=== PATIENT | male | born 1985 | race African-American/Black ===

== ENCOUNTER → 2016-11-18 | Emergency (ER) | payer MEDICAID, OTHER ==
[~2016-11-18] VITALS: Ht 190.5 cm; Wt 101.6 kg
[~2016-11-18] MED LIST: AMOX1TAB12; BUTA1CAP39 PO; BUTA1TAB9; FLUT16SP22; NAPR500T3 PO; SULF1TAB35 PO; TETANUS,DIPTH,PERTUSS P/F (BOOSTRIX) 0.5 ML VIAL IM ONE; TOPI50TA13
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
[2016-11-18 18:55] VITALS: BP 134/86
== END | disposition home or self-care (01) ==
LOC: EDUNIT# 17:58 → ER 18:01
DX: S61.431A Puncture wound without foreign body of right hand, initial encounter (principal); Z23 Encounter for immunization; F17.210 Nicotine dependence, cigarettes, uncomplicated; W45.8XXA Other foreign body or object entering through skin, initial encounter; Y92.59 Other trade areas as the place of occurrence of the external cause; Y99.0 Civilian activity done for income or pay
CPT/HCPCS: 90471; 90715; 99282

== ENCOUNTER 2017-08-13 18:48 | Emergency (ER) | payer SELFPAY ==
[~2017-08-13] VITALS: Ht 190.5 cm; Wt 102.1 kg
[~2017-08-13 18:48] MED LIST changes: -NAPR500T3 PO; +NAPR500T4 PO; -TETANUS,DIPTH,PERTUSS P/F (BOOSTRIX) 0.5 ML VIAL IM ONE
--- OUTSIDE RECORDS SUMMARY | 2017-08-13 18:55 | XMS REPORT | Clinical Summary ---
Author Author [facility] Organization [facility] Address Unknown Phone Unavailable Care Team Providers Care Sccm Administrator Name Role Phone Dominguez Castro MD Unavailable Zunilda Jackson RN Unavailable Unavailable Stacia Grey MD PCP Mary Calixto RN Unavailable Unavailable Azucena Pantoja RN Unavailable Unavailable Emani Cheema RN Unavailable Unavailable Source Comments Some departments are not documenting in the electronic medical record. If you do not see the information that you expected, contact Release of Information in the Health Information Management department at [phone] for further assistance in locating additional records.[facility] Allergies No Known Allergies Current Medications No known medications Active Problems Problem Noted Date Flexion contracture of joint of hand 08/29/2014 Social History Tobacco Use Types Packs/Day Years Used Date Current Every Day Smoker Cigarettes 0.5 Smokeless Tobacco: Never Used Tobacco Cessation: Counseling Given: Yes Alcohol Use Drinks/Week oz/Week Comments Yes 5 Cans of 3.0 beer Sex Assigned at Date Recorded Not on file Last Filed Vital Signs Vital Sign Reading Time Taken Blood Pressure 137/78 04/19/2015 11:22 AM CDT Pulse 85 04/19/2015 11:22 AM CDT Temperature 36.9 C (98.4 F) 04/19/2015 11:22 AM CDT Respiratory Rate 18 03/22/2015 11:05 AM CDT Oxygen Saturation 97% 02/02/2015 1:30 PM CDT Inhaled Oxygen - - Concentration Weight 108.9 kg (240 lb) 04/19/2015 11:22 AM CDT Height 190.5 cm (6' 3") 04/19/2015 11:22 AM CDT Body Mass Index 30 04/19/2015 11:22 AM CDT Plan of Treatment Health Maintenance Due Date Last Done Comments PHYSICAL (COMPREHENSIVE) 1992 EXAM PERTUSSIS VACCINE 1996 TETANUS VACCINE 2002 INFLUENZA VACCINE 02/11/2017 Results Not on filefrom Last 3 Months
--- OUTSIDE RECORDS SUMMARY | 2017-08-13 18:55 | XMS REPORT ---
Author Author RAMSEY VALVERDE Organization [facility] Address [address] [place] [address] Care Team Providers Care Flow Specialist Name Role Phone RAMSEY VALVERDE Unavailable PROBLEMS Type Condition ICD9-CM Code LAT32-NV Code Onset Dates Condition Status SNOMED Code Problem Unspecified conjunctivitis 372.30 Active 6889089 Problem Crushing injury of hand(s) 927.20 Active 02267115 Problem Screening examination for venereal disease V74.5 Active [id number] ALLERGIES No Known Allergies SOCIAL HISTORY Never Assessed PLAN OF CARE Activity Details Follow Up prn Reason: VITAL SIGNS Height 75 in 2016-12-10 Weight 228.4 lbs 2016-12-10 Temperature 97.6 degrees Fahrenheit 2016-12-10 Heart Rate 84 bpm 2016-12-10 Respiratory Rate 20 2016-12-10 BMI 28.54 kg/m2 2016-12-10 Blood pressure systolic 146 mmHg 2016-12-10 Blood pressure diastolic 88 mmHg 2016-12-10 MEDICATIONS No Known Medications RESULTS No Results PROCEDURES No Known procedures IMMUNIZATIONS No Known Immunizations
--- OUTSIDE RECORDS SUMMARY | 2017-08-13 18:56 | XMS REPORT | Continuity of Care Document ---
Author Author [facility] Organization [facility] Address Unknown Phone Unavailable Allergies Active Description Code Type Severity Reaction Onset Reported/Identified Relationship to Patient Clinical Status Yes No Known Drug Allergies [id number] Drug Allergy Unknown N/A 05/31/2015 Medications There is no data. Problems Date Dx Coded Attending Type Code Diagnosis Diagnosed By 02/13/2015 SONJA WISLON, ALEXANDER Ramirez Ot 729.81 02/13/2015 SONJA WILSON, ALEXANDER Ramirez Ot 927.20 02/13/2015 ALEXANDER CASILLAS MD Ot E000.8 02/13/2015 SONJA WILSON, ALEXANDER Ramirez Ot E928.9 02/16/2015 EMERSON WILSON, CHETAN Gentile Ot V57.21 02/16/2015 EMERSON WILSON, CHETAN Gentile Ot V57.21 02/17/2015 EMERSON WILSON, CHETAN H Ot V57.21 03/16/2015 EMERSON WILSON, CHETAN Gentile Ot V57.21 03/16/2015 EMERSON WILSON, CHETAN H Ot V57.21 03/16/2015 EMERSON WILSON, CHETAN H Ot V57.21 04/06/2015 EMERSON WILSON, CHETAN H Ot V57.21 04/12/2015 EMERSON WILSON, CHETAN H Ot V57.21 ENCOUNTER FOR OCCUPATIONAL THERAPY 04/24/2015 EMERSON WILSON, CHETAN Gentile Ot V57.21 05/11/2015 EMERSON WILSON, CHETAN Gentile Ot L90.5 06/06/2015 EMERSON WILSON, CHETAN Gentile Ot L90.5 06/09/2015 EMERSON WILSON, CHETAN Gentile Ot L90.5 06/30/2015 EMERSON WILSON, CHETAN Gentile Ot L90.5 06/30/2015 MITRA MACHADO APRN Ot F17.210 NICOTINE DEPENDENCE, CIGARETTES, UNCOMPL 06/30/2015 MITRA MACHADO APRN Ot G43.909 MIGRAINE, UNSP, NOT INTRACTABLE, WITHOUT 06/30/2015 MITRA MACHADO APRN Ot J01.90 ACUTE SINUSITIS, UNSPECIFIED 07/12/2015 EMERSON WILSON, CHETAN Gentile Ot L90.5 SCAR CONDITIONS AND FIBROSIS OF SKIN 11/18/2016 EMERSON WILSON, CHETAN Gentile Ot L90.5 SCAR CONDITIONS AND FIBROSIS OF SKIN 11/18/2016 EMERSON WILSON, CHETAN Gentile Ot L90.5 SCAR CONDITIONS AND FIBROSIS OF SKIN 11/24/2016 JOHNSON DOABDULLAHI Ot F17.210 NICOTINE DEPENDENCE, CIGARETTES, UNCOMPL 11/24/2016 [facility], ABDULLAHI K Ot S61.431A PUNCTURE WOUND W/O FOREIGN BODY OF RIGHT 11/24/2016 [facility] ABDULLAHI K Ot W45.8XXA OTH FOREIGN BODY OR OBJECT ENTERING THRO 11/24/2016 [facility] DO ABDULLAHI K Ot Y92.[address] 11/24/2016 [facility], ABDULLAHI K Ot Y99.0 CIVILIAN ACTIVITY DONE FOR INCOME OR PAY 11/24/2016 [facility] ABDULLAHI K Ot Z23 ENCOUNTER FOR IMMUNIZATION 12/19/2016 [facility] DO ABDULLAHI K Ot F17.210 NICOTINE DEPENDENCE, CIGARETTES, UNCOMPL 12/19/2016 [facility] ABDULLAHI K Ot S61.431A PUNCTURE WOUND W/O FOREIGN BODY OF RIGHT 12/19/2016 J[facility]NSON DO ABDULLAHI K Ot W45.8XXA OTH FOREIGN BODY OR OBJECT ENTERING THRO 12/19/2016 [facility] DO ABDULLAHI K Ot Y92.[address] 12/19/2016 [facility] ABDULLAHI Mobilio Ot Y99.0 CIVILIAN ACTIVITY DONE FOR INCOME OR PAY 12/19/2016 JOHNSON iikoABDULLAHI K Ot Z23 ENCOUNTER FOR IMMUNIZATION Procedures There is no data. Results There is no data. Encounters ACCT No. Visit Date/Time Discharge Status Pt. Type Provider Facility Loc./Unit Complaint [id number] 11/18/2016 18:01:00 11/18/2016 18:55:00 DIS Emergency ABDULLAHI ORNELAS DO [facility] ER R HAND SWELLING [id number] 07/13/2015 00:19:00 07/13/2015 23:59:59 CLS Preadmit CHETAN NORMAN MD [facility] REHAB LEFT RING FINGER [id number] 06/27/2015 13:49:00 07/12/2015 00:01:00 DIS Outpatient CHETAN NORMAN MD [facility] REHAB LEFT RING FINGER [id number] 06/30/2015 17:19:00 06/30/2015 20:03:00 DIS Emergency MITRA MACHADO APRN [facility] ER SINUS INFECTION/HEADACHE [id number] 04/11/2015 14:01:00 04/12/2015 00:01:00 DIS Outpatient CHETAN NORMAN MD [facility] REHAB LEFT RING FINGER [id number] 04/28/2013 16:50:00 04/28/2013 23:59:59 CLS Outpatient SONJA WILSON, ALEXANDER Ramirez [facility] RAD
[2017-08-13] MEDS ORDERED: IBUP-2055 PO (21:23)
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
[2017-08-13] MEDS ORDERED: RX-OSELTAMIVIR 75 MG (TAMIFLU) BOX OF 10 PO STA (22:24)
[2017-08-13] MEDS ORDERED: METH4TAB PO (22:30)
[2017-08-13] MEDS ORDERED: LORA1TAB59 PO (22:30)
[2017-08-13] MEDS ORDERED: BENZ-13 PO (22:30)
[2017-08-13] MEDS ORDERED: GUAI1TBM19 PO (22:30)
[2017-08-13] MEDS ORDERED: FLUT9.9S NS (22:30)
[2017-08-13] MEDS ORDERED: RX-ONDANSETRON 4 MG ODT (ZOFRAN) PPK #4 ONE (22:52)
[2017-08-13] MEDS ORDERED: predniSONE 20 MG TAB ONE (23:12)
[2017-08-13] MEDS ORDERED: BENZONATATE 100 MG (TESSALON) CAPSULE PO ONE (23:12)
[2017-08-13 23:14] VITALS: BP 124/74
[2017-08-14] MEDS ORDERED: RX-ONDANSETRON 4 MG ODT (ZOFRAN) PPK #4 PO STA (05:56)
[2017-08-14] MEDS ORDERED: BENZONATATE 100 MG (TESSALON) CAPSULE PO SCH (09:00)
== END 2017-08-13 23:14 | disposition home or self-care (01) ==
LOC: EDUNIT# 18:48 → ER 18:50
DX: J11.1 Influenza due to unidentified influenza virus with other respiratory manifestations (principal); G43.909 Migraine, unspecified, not intractable, without status migrainosus; F17.210 Nicotine dependence, cigarettes, uncomplicated
CPT/HCPCS: 87804; 99283

== ENCOUNTER 2017-08-19 20:12 | Emergency (ER) | payer SELFPAY ==
[~2017-08-19] VITALS: Ht 190.5 cm; Wt 102.1 kg
[~2017-08-19 20:12] MED LIST changes: +BENZ-13 PO; +FLUT9.9S NS; +GUAI1TBM19 PO; +IBUP-2055 PO; +LORA1TAB59 PO; +METH4TAB PO
[2017-08-19] MEDS ORDERED: NAPR220C11 PO (21:03)
[2017-08-19] MEDS ORDERED: NS IV 1000 ML 1,000 ML IV ONE (22:28)
--- NOTE | 2017-08-19 22:42 | ED Cough/URI ---
General Chief Complaint: Cough/Cold/Flu Symptoms Stated Complaint: FLU SYMPTOMS Nursing Triage Note: PT REPORTS BEING SEEN IN OUR ER LAST FRIDAY OR FRIDAY AND STARTED ON TAMIFLU; PT REPORTS NO IMPROVEMENT, UNABLE TO KEEP ANYTHING DOWN, N/V, COUGHING UP GREEN SPUTUM, CHILLS, BODY ACHES, URINARY URGENCY STARTING YESTERDAY. PT REPORT INTERMITTENT NUMBNESS TO HANDS Source: patient Exam Limitations: no limitations History of Present Illness Date Seen by Provider: Aug 19, 2017 Time Seen by Provider: 22:27 Initial Comments Here with report of persistent upper respiratory symptoms with cough and chills and body aches. Also noted urinary frequency starting yesterday. Does report nausea and vomiting. States he is able to eat and drink a little bit but just his overall not feeling well. Did take the medicines prescribed last week including Tamiflu that he got after visiting here on 13 August. Mild sore throat reported and persistent runny nose reported. Timing/Duration: week, getting worse Severity/Quality: mild, dry cough Associated Symptoms: cough, fever/chills, muscle aches, nasal congestion, nasal drainage, shortness of breath, sore throat Allergies and Home Medications Allergies Coded Allergies: No Known Drug Allergies (Unverified , 05/31/15) Home Medications Benzonatate 100 Mg Capsule, 1-2 TAB PO TID, #30 Prescribed by: ABDULLAHI ORNELAS on 08/13/17 2230 Naproxen Sodium 220 Mg Capsule, 220 MG PO Q6H PRN for PAIN-MILD, (Reported) Constitutional: see HPI, chills, fever, malaise EENTM: see HPI Respiratory: No short of breath, No wheezing Cardiovascular: no symptoms reported Gastrointestinal: No abdominal pain, nausea, vomiting Genitourinary: see HPI, other (emergency) Musculoskeletal: No back pain, No muscle pain Skin: no symptoms reported Psychiatric/Neurological: No Symptoms Reported All Other Systems Reviewed Negative Unless Noted: Yes Past Tqxapnm-Tzsmgl-Vmolkp Hx Patient Social History Alcohol Use: Occasionally Uses Alcohol Beverage of Choice: Beer Recreational Drug Use: Yes (MARIJUANA) Smoking Status: Current Everyday Smoker Type Used: Cigarettes Recent Foreign Travel: No Contact w/Someone Who Travel: No Recent Infectious Disease Expo: No Recent Hopitalizations: No Immunizations Up To Date Tetanus Booster (TDap): Unknown Seasonal Allergies Seasonal Allergies: No Surgeries History of Surgeries: Yes (LEFT HAND/FINGER SURGERY) Surgeries: Orthopedic Respiratory History of Respiratory Disorde: No Cardiovascular History of Cardiac Disorders: No Neurological History of Neurological Disord: Yes Neurological Disorders: Headaches /Migraines Genitourinary History of Genitourinary Disor: No Gastrointestinal History of Gastrointestinal Di: No Musculoskeletal History of Musculoskeletal Dis: No Endocrine History of Endocrine Disorders: No HEENT History of HEENT Disorders: No Cancer History of Cancer: No Psychosocial History of Psychiatric Problem: No Integumentary History of Skin or Integumenta: Yes (STAPH INFECTION) Blood Transfusions History of Blood Disorders: No Reviewed Nursing Assessment Reviewed/Agree w Nursing PMH: Yes Family Medical History Significant Family History: No Pertinent Family Hx Physical Exam Vital Signs Vital Signs - First Documented 08/19/17 20:53 Temp 99.4 Pulse 85 Resp 18 B/P (MAP) 146/78 (100) Pulse Ox 98 O2 Delivery Room Air Capillary Refill : Less Than 3 Seconds General Appearance: WD/WN, no apparent distress HEENT: PERRL/EOMI, pharyngeal erythema, other (moderate bilateral nasal congestion with erythema and clear rhinorrhea. Moderate sinus tenderness frontal.) Neck: full range of motion, supple Respiratory: lungs clear, normal breath sounds Cardiovascular: regular rate, rhythm, no murmur Gastrointestinal: non tender, soft Extremities: non-tender, normal inspection Neurologic/Psychiatric: alert, oriented x 3 Skin: normal color, warm/dry Progress/Results/Core Measures Suspected Sepsis Recent Fever Within 48 Hours: Yes Infection Criteria Present: Suspected New Infection New/Unexplained Altered Menta: No Sepsis Screen: No Definite Risk Sepsis Diagnosis: SIRS Temperature:99.4 Pulse: 85 Respiratory Rate: 18 Laboratory Tests 08/19/17 22:48: White Blood Count 7.4 Blood Pressure 146 /78 Mean: 100 Laboratory Tests 08/19/17 22:48: Creatinine 0.94, Platelet Count 279, Total Bilirubin 0.7 Results/Orders Lab Results Laboratory Tests Test 08/19/17 22:40 08/19/17 22:48 Range/Units Urine Color YELLOW Urine Clarity CLEAR Urine pH 7 5-9 Urine Specific [place] 1.005 L 1.016-1.022 Urine Protein NEGATIVE NEGATIVE Urine Glucose (UA) NEGATIVE NEGATIVE Urine Ketones NEGATIVE NEGATIVE Urine Nitrite NEGATIVE NEGATIVE Urine Bilirubin NEGATIVE NEGATIVE Urine Urobilinogen NORMAL NORMAL MG/DL Urine Leukocyte Esterase NEGATIVE NEGATIVE Urine RBC (Auto) NEGATIVE NEGATIVE Urine RBC RARE /HPF Urine WBC NONE /HPF Urine Squamous Epithelial Cells 0-2 /HPF Urine Crystals NONE /LPF Urine Bacteria NONE /HPF Urine Casts NONE /LPF Urine Mucus NEGATIVE /LPF Urine Culture Indicated NO White Blood Count 7.4 4.3-11.0 10^3/uL Red Blood Count 5.47 4.35-5.85 10^6/uL Hemoglobin 15.7 13.3-17.7 G/DL Hematocrit 46 40-54 % Mean Corpuscular Volume 84 80-99 FL Mean Corpuscular Hemoglobin 29 25-34 PG Mean Corpuscular Hemoglobin Concent 34 32-36 G/DL Red Cell Distribution Width 15.8 H 10.0-14.5 % Platelet Count 279 130-400 10^3/uL Mean Platelet Volume 9.6 7.4-10.4 FL Neutrophils (%) (Auto) 43 42-75 % Lymphocytes (%) (Auto) 40 12-44 % Monocytes (%) (Auto) 12 0-12 % Eosinophils (%) (Auto) 4 0-10 % Basophils (%) (Auto) 1 0-10 % Neutrophils # (Auto) 3.2 1.8-7.8 X 10^3 Lymphocytes # (Auto) 3.0 1.0-4.0 X 10^3 Monocytes # (Auto) 0.9 0.0-1.0 X 10^3 Eosinophils # (Auto) 0.3 0.0-0.3 10^3/uL Basophils # (Auto) 0.0 0.0-0.1 10^3/uL Sodium Level 139 135-145 MMOL/L Potassium Level 4.0 3.6-5.0 MMOL/L Chloride Level 105 98-107 MMOL/L Carbon Dioxide Level 22 21-32 MMOL/L Anion Gap 12 5-14 MMOL/L Blood Urea Nitrogen 7 7-18 MG/DL Creatinine 0.94 0.60-1.30 MG/DL Estimat Glomerular Filtration Rate > 60 BUN/Creatinine Ratio 7 Glucose Level 92 70-105 MG/DL Calcium Level 9.4 8.5-10.1 MG/DL Total Bilirubin 0.7 0.1-1.0 MG/DL Aspartate Amino Transf (AST/SGOT) 32 5-34 U/L Alanine Aminotransferase (ALT/SGPT) 35 0-55 U/L Alkaline Phosphatase 73 40-136 U/L C-Reactive Protein High Sensitivity 0.37 0.00-0.50 MG/DL Total Protein 7.5 6.4-8.2 GM/DL Albumin 4.2 3.2-4.5 GM/DL My Orders Orders - REGINA SABILLON MD Cbc With Automated Diff (08/19/17 22:28) Comprehensive Metabolic Panel (08/19/17 22:28) Hs C Reactive Protein (08/19/17 22:28) Ua Culture If Indicated (08/19/17 22:28) Chest Pa/Lat (2 View) (08/19/17 22:28) Saline Lock/Iv-Start (08/19/17 22:28) Ns Iv 1000 Ml (Sodium Chloride 0.9%) (08/19/17 22:28) Amoxicillin 1000mg Po (08/20/17 00:10) Medications Given in ED Current Medications Medications Dose Ordered Sig/Abner Route Start Time Stop Time Status Last Admin Dose Admin Sodium Chloride 1,000 ml @ 0 mls/hr Q0M ONCE IV 08/19/17 22:28 08/19/17 22:30 DC 08/19/17 22:51 0 MLS/HR Vital Signs/I&O Vital Sign - Last 12Hours 08/19/17 20:53 Temp 99.4 Pulse 85 Resp 18 B/P (MAP) 146/78 (100) Pulse Ox 98 O2 Delivery Room Air Capillary Refill : Less Than 3 Seconds Blood Pressure Mean: 100 Progress Note : Progress Note Seen and evaluated. IV, labs and UA ordered. Normal saline 1 L bolus. Monitor patient. 0010: Somewhat improved. No acute findings on labs or chest x -ray. We will initiate high-dose amoxicillin for probable sinusitis. Discharged home with return precautions. Patient verbalize understanding instructions and agreement with plan. Diagnostic Imaging Diagonstic Imaging: Xray Plain Films/CT/US/NM/MRI: chest Comments No acute findings Reviewed: Reviewed by Me Departure Impression Impression: Primary Impression: Sinusitis Qualified Codes: J01.10 - Acute frontal sinusitis, unspecified Disposition: HOME, SELF-CARE Condition: Improved Departure-Patient Inst. Decision time for Depature: 00:17 Referrals: NO,LOCAL PHYSICIAN (PCP/Family) Primary Care Physician Patient Instructions: Sinusitis, Adult (DC) Add. Discharge Instructions: All discharge instructions reviewed with patient and/or family. Voiced understanding. Drink plenty of fluids. You may use Afrin nasal spray or the generic, 12 hour relief, 2 sprays to each nostril twice daily for 3 days only and then stop. Do not use more than 3 days. You may take ibuprofen 800 mg every 8 hours as needed for fever or pain. You may take Tylenol 1000 mg every 8 hours as needed for fever or pain. Return for worse pain, fever, vomiting, weakness, breathing problems or other concerns as needed. Scripts Amoxicillin (Amoxicillin) 500 Mg Capsule 1000 MG PO TID, #60 CAP 0 Refills Prov: REGINA SABILLON MD 08/20/17 Work/School Note: Work Release Form Date Seen in the Emergency Department: Aug 20, 2017 Return to Work: Aug 21, 2017 Restrictions: No Restrictions REIGNA SABILLON MD Aug 19, 2017 22:42
[2017-08-19 22:56] LABS: BILIRUBIN,URINE NEGATIVE (NEGATIVE); CLARITY,URINE CLEAR; COLOR,URINE YELLOW; GLUCOSE, URINE (UA) NEGATIVE (NEGATIVE); KETONES,URINE NEGATIVE (NEGATIVE); LEUKOCYTE ESTERASE ,URINE NEGATIVE (NEGATIVE); NITRITE,URINE NEGATIVE (NEGATIVE); PH,URINE 7 (5-9); PROTEIN,URINE NEGATIVE (NEGATIVE); UROBILINOGEN,URINE NORMAL (NORMAL)
[2017-08-19 22:57] LABS: BASOPHILS % (AUTO) 1 % (0-10); EOSINOPHILS # (AUTO) 0.3 10^3/uL (0.0-0.3); EOSINOPHILS % (AUTO) 4 % (0-10); HEMATOCRIT 46 % (40-54); HEMOGLOBIN 15.7 G/DL (13.3-17.7); LYMPHOCYTES % (AUTO) 40 % (12-44); MEAN CORPUSCULAR HEMOGLOBIN 29 PG (25-34); MEAN CORPUSCULAR HGB CONC 34 G/DL (32-36); MEAN CORPUSCULAR VOLUME 84 FL (80-99); MEAN PLATELET VOLUME 9.6 FL (7.4-10.4); MONOCYTES # (AUTO) 0.9 X 10^3 (0.0-1.0); MONOCYTES % (AUTO) 12 % (0-12); NEUTROPHILS # (AUTO) 3.2 X 10^3 (1.8-7.8); NEUTROPHILS % (AUTO) 43 % (42-75); PLATELET COUNT 279 10^3/uL (130-400); RED BLOOD COUNT 5.47 10^6/uL (4.35-5.85); RED CELL DISTRIBUTION WIDTH 15.8 % (10.0-14.5); WHITE BLOOD COUNT 7.4 10^3/uL (4.3-11.0)
[2017-08-19 23:03] LABS: RBC,URINE RARE /HPF; SQUAMOUS EPITHELIAL CELL,UR 0-2 /HPF
[2017-08-19 23:19] LABS: ALANINE AMINOTRANSFERASE 35 U/L (0-55); ALBUMIN 4.2 GM/DL (3.2-4.5); ALKALINE PHOSPHATASE 73 U/L (40-136); BILIRUBIN,TOTAL 0.7 MG/DL (0.1-1.0); BUN/CREATININE RATIO 7; CALCIUM 9.4 MG/DL (8.5-10.1); CARBON DIOXIDE 22 MMOL/L (21-32); CHLORIDE 105 MMOL/L (98-107); CREATININE SERUM 0.94 MG/DL (0.60-1.30); GFR ESTIMATED > 60; GLUCOSE 92 MG/DL (70-105); SODIUM 139 MMOL/L (135-145); TOTAL PROTEIN 7.5 GM/DL (6.4-8.2)
[2017-08-20] MEDS ORDERED: AMOXICILLIN 500 MG (POLYMOX) CAP PO STA (00:10)
[2017-08-20] MEDS ORDERED: AMOX500C2 PO (00:18)
[2017-08-20 00:27] VITALS: BP 146/78
--- NOTE | 2017-08-20 06:38 | Diagnostic Imaging Report ---
INDICATION: Cough. Positive fluid test. FINDINGS: PA and lateral chest show the lungs to be well-aerated and clear. Heart is not enlarged. There is no pulmonary edema. No hilar adenopathy. No pneumothorax or pleural effusions. No bony abnormalities. IMPRESSION: Normal PA and lateral chest. Dictated by: Dictated on workstation # [id number]
== END 2017-08-20 00:27 | disposition home or self-care (01) ==
LOC: EDUNIT# 20:12 → ER 20:13
DX: J32.9 Chronic sinusitis, unspecified (principal); G43.909 Migraine, unspecified, not intractable, without status migrainosus; F12.10 Cannabis abuse, uncomplicated; F17.210 Nicotine dependence, cigarettes, uncomplicated
CPT/HCPCS: 36415; 71046; 80053; 81000; 85025; 86141; 96360; 96361

== ENCOUNTER 2017-10-16 16:58 | Emergency (ER) | payer SELFPAY ==
[~2017-10-16] VITALS: Ht 190.5 cm; Wt 96.2 kg
[~2017-10-16 16:58] MED LIST changes: +AMOX500C2 PO; +NAPR-915 PO; +NAPR220C11 PO; -NAPR500T4 PO
[2017-10-16] MEDS ORDERED: CYCL5TAB PO (17:08)
--- NOTE | 2017-10-16 17:08 | ED Back Pain ---
General Stated Complaint: BACK SPASMS Source of Information: Patient Exam Limitations: No Limitations History of Present Illness Date Seen by Provider: Oct 16, 2017 Time Seen by Provider: 17:05 Initial Comments Awakened this am with left low back pain worse with movement and non radiating. Described as spasm. Unable to get out of bed in time for work due to pain caused by movement and will need work note as well. Location: Paraspinous Muscles Timing/Duration: 4-6 Hours Severity: Moderate Associated Symptoms: lower back pain Allergies and Home Medications Allergies Coded Allergies: No Known Drug Allergies (Unverified , 05/31/15) Home Medications Amoxicillin 500 Mg Capsule, 1,000 MG PO TID Prescribed by: REGINA SABILLON on 08/20/17 0018 Benzonatate 100 Mg Capsule, 1-2 TAB PO TID Prescribed by: ABDULLAHI ORNELAS on 08/13/17 2230 Naproxen Sodium 220 Mg Capsule, 220 MG PO Q6H PRN for PAIN-MILD, (Reported) Patient Home Medication List Home Medication List Reviewed: Yes Constitutional: see HPI, No chills, No fever EENTM: see HPI Respiratory: no symptoms reported Cardiovascular: no symptoms reported Gastrointestinal: other Genitourinary: see HPI, No dysuria Musculoskeletal: see HPI, back pain Skin: no symptoms reported Past Uxgixux-Heomay-Shxknk Hx Patient Social History Alcohol Beverage of Choice: Beer Type Used: Cigarettes Recent Foreign Travel: No Contact w/Someone Who Travel: No Recent Hopitalizations: No Immunizations Up To Date Tetanus Booster (TDap): Unknown Seasonal Allergies Seasonal Allergies: No Past Medical History Surgeries: Yes (LEFT HAND/FINGER SURGERY) Orthopedic Respiratory: No Cardiac: No Neurological: Yes Headaches /Migraines Genitourinary: No Gastrointestinal: No Musculoskeletal: No Endocrine: No HEENT: No Cancer: No Psychosocial: No Integumentary: Yes (STAPH INFECTION) Blood Disorders: No Family Medical History No Pertinent Family Hx Physical Exam Vital Signs Capillary Refill : General Appearance: No Apparent Distress, WD/WN HEENT: PERRL/EOMI, TMs Normal Respiratory: Normal Breath Sounds, No Accessory Muscle Use, No Respiratory Distress Gastrointestinal: Normal Bowel Sounds, Non Tender, Soft Back: Normal Inspection, Other (Left low back maker to palpation) Extremity: Normal Capillary Refill, Normal Inspection Neurologic/Psychiatric: Alert, Oriented x3 Skin: Normal Color, Warm/Dry Progress/Results/Core Measures My Orders Orders - MITRA MACHADO APRN Ketorolac Injection (Toradol Injection) (10/16/17 17:15) Orphenadrine Injection (Norflex Injectio (10/16/17 17:15) Departure Impression Primary Impression: Back muscle spasm Disposition: HOME, SELF-CARE Condition: Stable Departure-Patient Inst. Decision time for Depature: 17:07 Referrals: NO,LOCAL PHYSICIAN (PCP/Family) Primary Care Physician Patient Instructions: Low Back Pain (DC) Add. Discharge Instructions: 1. Warmth to your low back 2. tylenol, ibuprofen/naproxen as needed for pain in addition to prescribed to muscle relaxers. 3. See your doctor next week for follow up Scripts Cyclobenzaprine HCl (Cyclobenzaprine HCl) 5 Mg Tablet 5 MG PO TID, #14 TAB Prov: MITRA MACHADO APRN 10/16/17 Work/School Note: Work Release Form Date Seen in the Emergency Department: Oct 16, 2017 Return to Work: Oct 17, 2017 MITRA MACHADO APRN Oct 16, 2017 17:08
[2017-10-16] MEDS ORDERED: ORPHENADRINE 60 MG/2 ML (NORFLEX) AMP IM ONE (17:15)
[2017-10-16] MEDS ORDERED: KETOROLAC 60 MG/2 ML VIAL IM ONE (17:15)
[2017-10-16 17:20] VITALS: BP 148/100
== END 2017-10-16 17:20 | disposition home or self-care (01) ==
LOC: EDUNIT# 16:58 → ER 16:59
DX: M62.830 Muscle spasm of back (principal); G43.909 Migraine, unspecified, not intractable, without status migrainosus; Z86.19 Personal history of other infectious and parasitic diseases
CPT/HCPCS: 96372; 99284

== ENCOUNTER 2017-10-20 18:55 | Emergency (ER) | payer SELFPAY ==
[~2017-10-20] VITALS: Ht 190.5 cm; Wt 96.2 kg
[~2017-10-20 18:55] MED LIST changes: +CYCL5TAB PO
--- OUTSIDE RECORDS SUMMARY | 2017-10-20 19:01 | XMS REPORT | Clinical Summary ---
Author Author [facility] Organization [facility] Address Unknown Phone Unavailable Care Team Providers Care Lobsterman Name Role Phone Dominguez Castro MD Unavailable [...] in the Health Information Management department at [phone] for further assistance in locating additional records.[facility] Allergies No Known Allergies Current Medications No [...] PHYSICAL (COMPREHENSIVE) 1992 EXAM PERTUSSIS VACCINE 1996 HIV SCREENING 2000 TETANUS VACCINE 2002 INFLUENZA VACCINE 04/13/2018 Results Not on filefrom Last 3 Months
--- OUTSIDE RECORDS SUMMARY | 2017-10-20 19:02 | XMS REPORT | Continuity of Care Document ---
Author Author [facility] Organization [facility] Address Unknown Phone Unavailable Allergies Active Description Code Type Severity Reaction Onset Reported/Identified Relationship to Patient Clinical Status Yes No Known Drug Allergies [id number] Drug Allergy Unknown N/A 05/31/2015 Medications There is no data. Problems Date Dx Coded Attending Type Code Diagnosis Diagnosed By 05/09/2012 LEELA SINGER APRN 372.30 CONJUNCTIVITIS UNSPECIFIED 05/09/2012 ALEXANDER CASILLAS MD 372.30 CONJUNCTIVITIS UNSPECIFIED 03/22/2013 LEELA SINGER APRN V74.5 STD SCREEN 03/22/2013 ALEXANDER CASILLAS MD V74.5 STD SCREEN 04/28/2013 ALEXANDER CASILLAS MD 927.20 CRUSHING INJURY OF HAND(S) 02/13/2015 ALEXANDER CASILLAS MD Ot 729.81 02/13/2015 ALEXANDER CASILLAS MD Ot 927.20 02/13/2015 ALEXANDER CASILLAS MD Ot E000.8 02/13/2015 ALEXANDER CASILLAS MD Ot E928.9 02/16/2015 EMERSON WILSON, CHETAN Gentile Ot V57.21 02/16/2015 EMERSON WILSON, CHETAN Gentile Ot V57.21 02/17/2015 EMERSON WILSON, CHETAN Gentile Ot V57.21 03/16/2015 EMERSON WILSON, CHETAN Gentile Ot V57.21 03/16/2015 EMERSON WILSON, CHETAN Gentile Ot V57.21 03/16/2015 EMERSON WILSON, CHETAN Gentile Ot V57.21 04/06/2015 EMERSON WILSON, CHETAN Gentile Ot V57.21 04/12/2015 EMERSON WILSON, CHETAN Gentile Ot V57.21 ENCOUNTER FOR OCCUPATIONAL THERAPY 04/24/2015 EMERSON WILSON, CHETAN Gentile Ot V57.21 05/11/2015 EMERSON WILSON, CHETAN Gentile Ot L90.5 06/06/2015 EMERSON WILSON, CHETAN Gentile Ot L90.5 06/09/2015 EMERSON WILSON, CHETAN Gentile Ot L90.5 06/30/2015 EMERSON WILSON, CHETAN Gentile Ot L90.5 06/30/2015 MITRA MACHADO APRN Ot F17.210 NICOTINE DEPENDENCE, CIGARETTES, UNCOMPL 06/30/2015 MITRA MACHADO TURRET PUNCH PRESS OPERATOR Ot G43.909 MIGRAINE, UNSP, NOT INTRACTABLE, WITHOUT 06/30/2015 MITRA MACHADO APRN Ot J01.90 ACUTE SINUSITIS, UNSPECIFIED 07/12/2015 EMERSON WILSON, CHETAN Gentile Ot L90.5 SCAR CONDITIONS AND FIBROSIS OF SKIN 11/18/2016 EMERSON WILSON, CHETAN Gentile Ot L90.5 SCAR CONDITIONS AND FIBROSIS OF SKIN 11/18/2016 EMERSON WILSON, CHETAN Gentile Ot L90.5 SCAR CONDITIONS AND FIBROSIS OF SKIN 11/18/2016 ABDULLAHI ORNELAS DO Ot F17.210 NICOTINE DEPENDENCE, CIGARETTES, UNCOMPL 11/18/2016 ABDULLAHI ORNELAS DO Ot S61.431A PUNCTURE WOUND W/O FOREIGN BODY OF RIGHT 11/18/2016 ABDULLAHI ORNELAS DO Ot W45.8XXA OT FOREIGN BODY OR OBJECT ENTERING THRO 11/18/2016 ABDULLAHI ORNELAS DO Ot Y92.[address] 11/18/2016 ABDULLAHI ORNELAS DO Ot Y99.0 CIVILIAN ACTIVITY DONE FOR INCOME OR PAY 11/18/2016 ABDULLAHI ORNELAS DO Ot Z23 ENCOUNTER FOR IMMUNIZATION 11/24/2016 ABDULLAHI ORNELAS DO Ot F17.210 NICOTINE DEPENDENCE, CIGARETTES, UNCOMPL 11/24/2016 ABDULLAHI ORNELAS DO Ot S61.431A PUNCTURE WOUND W/O FOREIGN BODY OF RIGHT 11/24/2016 ABDULLAHI ORNELAS DO Ot W45.8XXA OT FOREIGN BODY OR OBJECT ENTERING THRO 11/24/2016 ABDULLAHI ORNELAS DO K Ot Y92.[address] 11/24/2016 JOHNSON , ABDULLAHI Balderrama Ot Y99.0 CIVILIAN ACTIVITY DONE FOR INCOME OR PAY 11/24/2016 PONCE ABDULLAHI Balderrama Ot Z23 ENCOUNTER FOR IMMUNIZATION 12/19/2016 PONCE ABDULLAHI Balderrama Ot F17.210 NICOTINE DEPENDENCE, CIGARETTES, UNCOMPL 12/19/2016 [facility] ABDULLAHI Balderrama Ot S61.431A PUNCTURE WOUND W/O FOREIGN BODY OF RIGHT 12/19/2016 PONCE , ABDULLAHI Balderrama Ot W45.8XXA OTH FOREIGN BODY OR OBJECT ENTERING THRO 12/19/2016 JOHNSON ABDULLAHI Balderrama Ot Y92.[address] 12/19/2016 JOHNSON ABDULLAHI Balderrama Ot Y99.0 CIVILIAN ACTIVITY DONE FOR INCOME OR PAY 12/19/2016 JOHNSON ABDULLAHI Balderrama Ot Z23 ENCOUNTER FOR IMMUNIZATION 08/13/2017 [facility] ABDULLAHI Balderrama Ot F17.210 NICOTINE DEPENDENCE, CIGARETTES, UNCOMPL 08/13/2017 [facility] ABDULLAHI Balderrama Ot G43.909 MIGRAINE, UNSP, NOT INTRACTABLE, WITHOUT 08/13/2017 [facility], ABDULLAHI Balderrama Ot J11.1 FLU DUE TO UNIDENTIFIED INFLUENZA VIRUS 08/13/2017 JOHNSON DO ABDULLAHI Balderrama Ot R05 COUGH 08/14/2017 EMERSON WILSON, CHETAN Gentile Ot L90.5 SCAR CONDITIONS AND FIBROSIS OF SKIN 08/15/2017 [facility] ABDULLAHI Balderrama Ot F17.210 NICOTINE DEPENDENCE, CIGARETTES, UNCOMPL 08/15/2017 [facility] ABDULLAHI Balderrama Ot G43.909 MIGRAINE, UNSP, NOT INTRACTABLE, WITHOUT 08/15/2017 [facility] ABDULLAHI Balderrama Ot J11.1 FLU DUE TO UNIDENTIFIED INFLUENZA VIRUS 08/15/2017 [facility] ABDULLAHI Balderrama Ot R05 COUGH 08/19/2017 EMERSON WILSON, CHETAN Gentile Ot L90.5 SCAR CONDITIONS AND FIBROSIS OF SKIN 08/20/2017 REGINA SABILLON MD Ot F12.10 CANNABIS ABUSE, UNCOMPLICATED 08/20/2017 REGINA SABILLON MD Ot F17.210 NICOTINE DEPENDENCE, CIGARETTES, UNCOMPL 08/20/2017 REGINA SABILLON MD Ot G43.909 MIGRAINE, UNSP, NOT INTRACTABLE, WITHOUT 08/20/2017 REGINA SABILLON MD, Ot J06.9 ACUTE UPPER RESPIRATORY INFECTION, UNSPE 08/20/2017 REGINA SABILLON MD, Ot J32.9 CHRONIC SINUSITIS, UNSPECIFIED 08/21/2017 REGINA SABILLON MD, Ot F12.10 CANNABIS ABUSE, UNCOMPLICATED 08/21/2017 REGINA SABILLON MD, Ot F17.210 NICOTINE DEPENDENCE, CIGARETTES, UNCOMPL 08/21/2017 REGINA SABILLON MD, Ot G43.909 MIGRAINE, UNSP, NOT INTRACTABLE, WITHOUT 08/21/2017 REGINA SABILLON MD, Ot J06.9 ACUTE UPPER RESPIRATORY INFECTION, UNSPE 08/21/2017 REGINA SABILLON MD, Ot J32.9 CHRONIC SINUSITIS, UNSPECIFIED 10/17/2017 CHETAN NORMAN MD Ot L90.5 SCAR CONDITIONS AND FIBROSIS OF SKIN 10/17/2017 CHETAN NORMAN MD Ot L90.5 SCAR CONDITIONS AND FIBROSIS OF SKIN Procedures Code Description [place] [address] ROUTINE VENIPUNCTURE 03/22/2013 61542 [facility] 03/22/2013 57853 GC/CHLAM URINE ([facility]) 03/22/2013 07957 HIV ANTIBODIES ([facility]) 03/24/[address] EXTREMITY, UPPER, LEFT, W /CONTRAST 04/28/2013 Results Test Result Range Influenza virus A and B antigen detection - 08/13/17 21:52 FLU RESULT NEGATIVE FOR INFLUENZA A AND B ANTIGENS BY IA NRG Complete urinalysis with reflex to culture - 08/19/17 22:40 Urine color determination YELLOW NRG Urine clarity determination CLEAR NRG Urine pH measurement by test strip 7 5-9 Specific gravity of urine by test strip 1.005 1.016- 1.022 Urine protein assay by test strip, semi-quantitative NEGATIVE NEGATIVE Urine glucose detection by automated test strip NEGATIVE NEGATIVE Erythrocytes detection in urine sediment by light microscopy NEGATIVE NEGATIVE Urine ketones detection by automated test strip NEGATIVE NEGATIVE Urine nitrite detection by test strip NEGATIVE NEGATIVE Urine total bilirubin detection by test strip NEGATIVE NEGATIVE Urine urobilinogen measurement by automated test strip (mass/volume) NORMAL NORMAL Urine leukocyte esterase detection by dipstick NEGATIVE NEGATIVE Automated urine sediment erythrocyte count by microscopy (number/high power field) RARE NRG Automated urine sediment leukocyte count by microscopy (number/high power field ) NONE NRG Bacteria detection in urine sediment by light microscopy NONE NRG Squamous epithelial cells detection in urine sediment by light microscopy 0-2 NRG Crystals detection in urine sediment by light microscopy NONE NRG Casts detection in urine sediment by light microscopy NONE NRG Mucus detection in urine sediment by light microscopy NEGATIVE NRG Complete urinalysis with reflex to culture NO NRG Complete blood count (CBC) with automated white blood cell (WBC) differential - 08/19/17 22:48 Blood leukocytes automated count (number/volume) 7.4 10*3/uL 4.3-11.0 Blood erythrocytes automated count (number/volume) 5.47 10*6/uL 4.35-5.85 Venous blood hemoglobin measurement (mass/volume) 15.7 g/dL 13.3-17.7 Blood hematocrit (volume fraction) 46 % 40-54 Automated erythrocyte mean corpuscular volume 84 [foz_us] 80-99 Automated erythrocyte mean corpuscular hemoglobin (mass per erythrocyte) 29 pg 25-34 Automated erythrocyte mean corpuscular hemoglobin concentration measurement ( mass/volume) 34 g/dL 32-36 Automated erythrocyte distribution width ratio 15.8 % 10.0-14.5 Automated blood platelet count (count/volume) 279 10*3/uL 130-400 Automated blood platelet mean volume measurement 9.6 [foz_us] 7.4-10.4 Automated blood neutrophils/100 leukocytes 43 % 42-75 Automated blood lymphocytes/100 leukocytes 40 % 12-44 Blood monocytes/100 leukocytes 12 % 0-12 Automated blood eosinophils/100 leukocytes 4 % 0-10 Automated blood basophils/100 leukocytes 1 % 0-10 Blood neutrophils automated count (number/volume) 3.2 10*3 1.8-7.8 Blood lymphocytes automated count (number/volume) 3.0 10*3 1.0-4.0 Blood monocytes automated count (number/volume) 0.9 10*3 0.0-1.0 Automated eosinophil count 0.3 10*3/uL 0.0-0.3 Automated blood basophil count (count/volume) 0.0 10*3/uL 0.0-0.1 Comprehensive metabolic panel - 08/19/17 22:48 Serum or plasma sodium measurement (moles/volume) 139 mmol/L 135-145 Serum or plasma potassium measurement (moles/volume) 4.0 mmol/L 3.6-5.0 Serum or plasma chloride measurement (moles/volume) 105 mmol/L 98-107 Carbon dioxide 22 mmol/L 21-32 Serum or plasma anion gap determination (moles/volume) 12 mmol/L 5-14 Serum or plasma urea nitrogen measurement (mass/volume) 7 mg/dL 7-18 Serum or plasma creatinine measurement (mass/volume) 0.94 mg/dL 0.60-1.30 Serum or plasma urea nitrogen/creatinine mass ratio 7 NRG Serum or plasma creatinine measurement with calculation of estimated glomerular filtration rate > NRG Serum or plasma glucose measurement (mass/volume) 92 mg/dL 70-105 Serum or plasma calcium measurement (mass/volume) 9.4 mg/dL 8.5-10.1 Serum or plasma total bilirubin measurement (mass/volume) 0.7 mg/dL 0.1-1.0 Serum or plasma alkaline phosphatase measurement (enzymatic activity/volume) 73 U/L 40-136 Serum or plasma aspartate aminotransferase measurement (enzymatic activity/ volume) 32 U/L 5-34 Serum or plasma alanine aminotransferase measurement (enzymatic activity/volume ) 35 U/L 0-55 Serum or plasma protein measurement (mass/volume) 7.5 g/dL 6.4-8.2 Serum or plasma albumin measurement (mass/volume) 4.2 g/dL 3.2-4.5 Serum or plasma C reactive protein measurement (mass/volume) - 08/19/17 22:48 Serum or plasma C reactive protein measurement (mass/volume) 0.37 mg /dL 0.00-0.50 Encounters ACCT No. Visit Date/Time Discharge Status Pt. Type Provider Facility Loc./Unit Complaint [id number] 10/16/2017 16:59:00 10/16/2017 17:20:00 DIS Emergency MITRA MACHADO APRN [facility] ER BACK SPASMS [id number] 08/19/2017 20:13:00 08/20/2017 00:27:00 DIS Emergency REGINA SABILLON MD [facility] ER FLU SYMPTOMS [id number] 08/13/2017 18:50:00 08/13/2017 23:14:00 DIS Emergency JOHNSON DO, ABDULLAHI K [facility] ER BODY ACHES,VOMITING [id number] 11/18/2016 18:01:00 11/18/2016 18:55:00 DIS Emergency ABDULLAHI ORNELAS DO [facility] ER R HAND SWELLING [id number] 07/13/2015 00:19:00 07/13/2015 23:59:59 CLS Preadmit CHETNA NORMAN MD [facility] REHAB LEFT RING FINGER [id number] 06/27/2015 13:49:00 07/12/2015 00:01:00 DIS Outpatient CHETAN NORMAN MD [facility] REHAB LEFT RING FINGER [id number] 06/30/2015 17:19:00 06/30/2015 20:03:00 DIS Emergency MITRA MACHADO APRN [facility] ER SINUS INFECTION/HEADACHE [id number] 04/11/2015 14:01:00 04/12/2015 00:01:00 DIS Outpatient CHETAN NORMAN MD [facility] REHAB LEFT RING FINGER [id number] 04/28/2013 16:50:00 04/28/2013 23:59:59 CLS Outpatient ALEXANDER CASILLAS [place] [facility] [place] [id number] 07/21/2017 19:40:00 07/21/2017 23:59:59 [facility] [id number] 04/28/2013 15:15:00 04/28/2013 23:59:59 CLS Outpatient ALEXANDER CASILLAS MD [id number] 03/22/2013 15:50:00 03/22/2013 23:59:59 CLS Outpatient LEELA SINGER APRN
[2017-10-20] MEDS ORDERED: LIDOCAINE/EPI 1%-1:100,000 (XYLOCAINE) 20ML INJ ONE (19:45)
[2017-10-20] MEDS ORDERED: methylPREDNISolone 80 MG/ML (DEPO MEDROL) VIAL IA ONE (19:45)
[2017-10-20] MEDS ORDERED: BUPIVACAINE 0.5% 30 ML (SENSORCAINE) VIAL INJ ONE (19:45)
--- NOTE | 2017-10-20 19:46 | ED Back Pain ---
General Chief Complaint: Back Problems Stated Complaint: BACK SPASMS Nursing Triage Note: PT TO ED 3 W/ C/O LOWER BACK PAIN ET SPASMS W/ NUMBNESS DOWN HIS LT LEG. REPORTS WAS SEEN LAST WEEK FOR SAME C/O, WAS TREATED AT THAT TIME ET REPORTS "MINOR" IMPROVEMENT. STATES WENT BACK TO WORK TONIGHT ET WAS UNABLE TO WORK DUE TO PAIN. Nursing Sepsis Screen: No Definite Risk Source of Information: Patient Exam Limitations: No Limitations History of Present Illness Date Seen by Provider: Oct 20, 2017 Time Seen by Provider: 19:35 Initial Comments Patient presents to the ER by private conveyance with a chief complaint that he was at work because he is having some back pain for the past 2-3 days he wasn't sent home. He came here because he was seen here 2 days ago and given an anti- inflammatory shot as well as a muscle relaxant with only helped for about a day or so. He did not brain picker the Naprosyn yet. He was not put on any steroids. He does smoke about a pack per day. He has a history of back pain in this area ever since a football injury when he was in high school. It intermittently flares up every few years. Today the pain has gotten worse and is now extending from his buttocks down to below his knee. He is having no saddle anesthesia, loss of bowel or bladder, fevers or chills. Allergies and Home Medications Allergies Coded Allergies: No Known Drug Allergies (Unverified , 05/31/15) Home Medications Amoxicillin 500 Mg Capsule, 1,000 MG PO TID Prescribed by: REGINA SABILLON on 08/20/17 0018 Benzonatate 100 Mg Capsule, 1-2 TAB PO TID Prescribed by: ABDULLAHI ORNELAS on 08/13/170 Cyclobenzaprine HCl 5 Mg Tablet, 5 MG PO TID Prescribed by: MITRA MACHADO on 10/16/17 1708 Naproxen Sodium 220 Mg Capsule, 220 MG PO Q6H PRN for PAIN-MILD, (Reported) Patient Home Medication List Home Medication List Reviewed: Yes Constitutional: No chills, No fever EENTM: No ear discharge, No ear pain Respiratory: No cough, No short of breath Cardiovascular: No chest pain, No palpitations Gastrointestinal: No abdominal pain, No constipation, No diarrhea, No nausea Genitourinary: No discharge, No dysuria Musculoskeletal: see HPI, back pain, No joint pain Skin: No pruritus, No rash Past Ixfljkw-Rnbhil-Fbhkdq Hx Patient Social History Alcohol Use: Occasionally Uses Number of Drinks Today: AA Alcohol Beverage of Choice: Beer Recreational Drug Use: No Type Used: Cigarettes 2nd Hand Smoke Exposure: No Recent Foreign Travel: No Contact w/Someone Who Travel: No Recent Infectious Disease Expo: No Recent Hopitalizations: No Physical Abuse: No Sexual Abuse: No Mistreated: No Fear: No Immunizations Up To Date Tetanus Booster (TDap): Unknown Seasonal Allergies Seasonal Allergies: No Past Medical History Surgeries: Yes (LEFT HAND/FINGER STAPH INF SURGERY) Orthopedic Respiratory: No Cardiac: No Neurological: Yes Headaches /Migraines Genitourinary: No Gastrointestinal: No Musculoskeletal: No Endocrine: No HEENT: No Cancer: No Psychosocial: No Nursing Suicide Risk Score: 0 Integumentary: Yes (STAPH INFECTION) Blood Disorders: No Family Medical History No Pertinent Family Hx Physical Exam Vital Signs Vital Signs - First Documented 10/20/17 19:07 Temp 98.7 Pulse 86 Resp 18 B/P (MAP) 142/83 (102) Pulse Ox 99 Capillary Refill : Less Than 3 Seconds General Appearance: No Apparent Distress, WD/WN HEENT: PERRL/EOMI, Pharynx Normal Neck: Full Range of Motion, Normal Inspection, Non Tender, Supple Cardiovascular: Regular Rate, Rhythm, Normal Peripheral Pulses Respiratory: Chest Non Tender, Lungs Clear, No Accessory Muscle Use, No Respiratory Distress Peripheral Pulses: 2+ Dorsalis Pedis (R), 2+ Left Dors-Pedis (L) Gastrointestinal: Non Tender, Soft Back: Normal Inspection, Vertebral Tenderness (lumbar range), Other ( tenderness to re-creates his sciatic symptoms directly over the L5-S1 facet joint) Extremity: Normal Capillary Refill, Non Tender, No Calf Tenderness Neurologic/Psychiatric: Alert, Oriented x3, No Motor/Sensory Deficits Skin: Normal Color, Warm/Dry Progress/Results/Core Measures My Orders Orders - FRANCISCO JAVIER LEIGH Methylprednisolone Acetate Inj (Depo-Med (10/20/17 19:45) Bupivacaine 0.5% Injection (Sensorcaine (10/20/17 19:45) Lidocaine/Epi 1% 1:100,000 (Xylocaine /E (10/20/17 19:45) Ketorolac Injection (Toradol Injection) (10/20/17 20:00) Lidocaine/Epi Mpf 1% 1:200,000 (Xylocain (10/20/17 20:00) Medications Given in ED Current Medications Medications Dose Ordered Sig/Anber Route Start Time Stop Time Status Last Admin Dose Admin Bupivacaine HCl 30 ml ONCE ONCE INJ 10/20/17 19:45 10/20/17 19:46 DC 10/20/17 19:52 30 ML Ketorolac Tromethamine 30 mg ONCE ONCE IM 10/20/17 20:00 10/20/17 20:01 DC 10/20/17 19:54 30 MG Methylprednisolone Acetate 80 mg ONCE ONCE IA 10/20/17 19:45 10/20/17 19:46 DC 10/20/17 19:52 80 MG Vital Signs/I&O 10/20/17 19:07 Temp 98.7 Pulse 86 Resp 18 B/P (MAP) 142/83 (102) Pulse Ox 99 Blood Pressure Mean: 102 Progress Note : Time: 19:46 Progress Note Offered oral steroids versus an injection directly at the site. He would prefer the injection. We'll get him a note for work and another injection of ketorolac. We have encouraged him to follow up with a primary care physician to help manage this as well as consider things like chiropractic, back brace, icy hot, heat. Departure Impression Primary Impression: Lumbago with sciatica, left side Qualified Codes: M54.42 - Lumbago with sciatica, left side Disposition: 01 HOME, SELF-CARE Condition: Improved Departure-Patient Inst. Decision time for Depature: 20:47 Referrals: NO,LOCAL PHYSICIAN (PCP/Family) Primary Care Physician Patient Instructions: Low Back Pain (DC) Add. Discharge Instructions: Get a back brace use icy hot and heating pads. supervisor braiding the Naprosyn and take 2 capsules [id number] twice a day for the next 2-4 weeks. Follow up with chiropractic or with a primary care physician if you're not seeing some improvement in 2-4 weeks. Use Tylenol 1000 g every 8 hours as needed for pain. The steroid should kick in in about 12-24 hours and last for about 7-10 days and bring down the inflammation in her back as well. All discharge instructions reviewed with patient and/or family. Voiced understanding. Work/School Note: Work Release Form Date Seen in the Emergency Department: Oct 20, 2017 Return to Work: Oct 21, 2017 Restrictions: No Restrictions FRANCISCO JAVIER LEIGH Oct 20, 2017 19:46
[2017-10-20] MEDS ORDERED: KETOROLAC 30 MG/ML VIAL IM ONE (20:00)
[2017-10-20] MEDS ORDERED: LIDOCAINE/EPI 1%-1:200,000 (XYLOCAINE) 10 ML VIAL INJ ONE (20:00)
[2017-10-20 20:51] VITALS: BP 132/78
== END 2017-10-20 20:51 | disposition home or self-care (01) ==
LOC: EDUNIT# 18:55 → ER 18:56
DX: M54.32 Sciatica, left side (principal); G43.909 Migraine, unspecified, not intractable, without status migrainosus; Z86.19 Personal history of other infectious and parasitic diseases
CPT/HCPCS: 96372; 99284

== ENCOUNTER 2018-11-22 13:01 | Emergency (ER) | payer OTHER ==
[~2018-11-22] VITALS: Ht 190.5 cm; Wt 106.6 kg
[~2018-11-22 13:01] MED LIST changes: -BENZ-13 PO; +BENZ100C18 PO
[2018-11-22 13:12] VITALS: BP 142/83
--- OUTSIDE RECORDS SUMMARY | 2018-11-22 13:36 | XMS REPORT ---
Author Author Migration, Doctor Organization [facility] Address Unknown Phone Unavailable Care Team Providers Care Sterile Processing Manager Name Role Phone Migration, Doctor Unavailable Unavailable PROBLEMS Type Condition ICD9-CM Code ABB68-DQ Code Onset Dates Condition Status SNOMED Code Problem Unspecified conjunctivitis 372.30 Active 0391915 Problem Other chronic pain G89.29 Active 78709496 Problem Screening examination for venereal disease V74.5 Active 809793689 Problem Crushing injury of hand(s) 927.20 Active [id number] ALLERGIES No Information ENCOUNTERS Encounter Location Date Diagnosis [facility] [address] [address] November, Acute nasopharyngitis J00 [facility] [address] [address] November, Low back pain M54.5 and Other chronic pain G89.29 [facility] [address] [address] Jul, Injury of left hip, initial encounter S79.912A [facility] [address] [place] [address] November, Gastroenteritis and colitis, viral A08.4 [facility] [address] [address] November, Cellulitis of right upper extremity L03.113 [facility] [address] [address] May, Pharyngitis due to other organism J02.8 [facility] [address] [id number] Dec, Dental examination V72.2 [facility] [address] [address] Oct, 2014 [facility] [address] [address] Oct, [facility] [address] [place] [address] Apr, [facility] [address] [place] [address] Apr, [facility] [address] [place] [address] Apr, [facility] [address] [place] [address] Apr, [facility] [address] [place] [address] Mar, [facility] [address] [place] [address] Mar, [facility] [address] [place] [address] Mar, [facility] [address] [place] [address] Apr, [facility] [address] [place] [address] Apr, IMMUNIZATIONS No Known Immunizations SOCIAL HISTORY Never Assessed REASON FOR VISIT [facility] [place] VITAL SIGNS MEDICATIONS Medication Instructions Dosage Frequency Start Date End Date Duration Status Bactrim DS 800-160 mg 1 tablet by Oral route 2 times per day for 10 day(s) Apr, Active Erythromycin 5 mg/gram (0.5 %) apply 1 cm ribbon into the lower conjunctival sac in the left eye by ophthalmic route 4 times per day for 7 days Apr, Active Naproxen 500 mg take 1 tablet by Oral route 2 times per day with food for pain/swelling Apr, Active RESULTS No Results PROCEDURES No Known procedures INSTRUCTIONS MEDICATIONS ADMINISTERED No Known Medications
--- OUTSIDE RECORDS SUMMARY | 2018-11-22 13:36 | XMS REPORT ---
Author Author ANTHONY RAMOS Organization [facility] Address [address] [place] [address] Care Team Providers Care Spar Machine Operator Helper Name Role Phone ANTHONY RAMOS Unavailable PROBLEMS Type Condition ICD9-CM Code GED86-OG Code Onset Dates Condition Status SNOMED Code Problem Other chronic pain G89.29 Active 36144760 Problem Unspecified conjunctivitis 372.30 Active 0171705 Problem Crushing injury of hand(s) 927.20 Active 69598746 Problem Screening examination for venereal disease V74.5 Active 885764358 ALLERGIES No Known Allergies ENCOUNTERS Encounter Location Date Diagnosis [facility] [address] [address] November, Acute nasopharyngitis J00 [facility] [address] [address] November, Low back pain M54.5 and Other chronic pain G89.29 [facility] [address] [address] Jul, Injury of left hip, initial encounter S79.912A [facility] [address] [address] November, Gastroenteritis and colitis, viral A08.4 [facility] [address] [address] November, Cellulitis of right upper extremity L03.113 [facility] [address] [address] May, Pharyngitis due to other organism J02.8 [facility] [address] [id number] Dec, Dental examination V72.2 [facility] [address], [place] [address] 14 Oct, 2014 [facility] [address] [address] 13 Oct, 2014 [facility] [address], [place] [address] 18 Apr, 2012 [facility] [address] [address] 18 Apr, 2012 [facility] [address] [address] Apr, 2012 [facility] [address] [address] 16 Apr, 2012 [facility] [address], [place] [address] 27 Mar, 2012 [facility] [address], [place] [address] 11 Mar, 2012 [facility] [address], [place] [address] 09 Mar, 2012 [facility] [address], [place] [address] Apr, [facility] [id number], [place] [address] Apr, IMMUNIZATIONS No Known Immunizations SOCIAL HISTORY Never Assessed REASON FOR VISIT Sinus pain and headache started this morning JStrasserRN PLAN OF CARE Activity Details Follow Up prn Reason: VITAL SIGNS Height 75 in 2017-12-10 Weight 225.0 lbs 2017-12-10 Temperature 99.0 degrees Fahrenheit 2017-12-10 Heart Rate 80 bpm 2017-12-10 Respiratory Rate 20 2017-12-10 BMI 28.12 kg/m2 2017-12-10 Blood pressure systolic 110 mmHg 2017-12-10 Blood pressure diastolic 64 mmHg 2017-12-10 MEDICATIONS Medication Instructions Dosage Frequency Start Date End Date Duration Status Naproxen 500 mg take 1 tablet by Oral route 2 times per day with food for pain/swelling Apr, Active RESULTS No Results PROCEDURES No Known procedures INSTRUCTIONS MEDICATIONS ADMINISTERED No Known Medications
--- OUTSIDE RECORDS SUMMARY | 2018-11-22 13:36 | XMS REPORT | Clinical Summary ---
Author Author [facility] Organization [facility] Address Unknown Phone Unavailable Care Team Providers Care Planning Feeder Name Role Phone Dominguez Castro MD Unavailable [...] in the Health Information Management department at [phone] for further assistance in locating additional records.[facility] Allergies No Known Allergies Medications No known medications Active Problems Problem Noted Date Flexion contracture of joint of hand 08/29/2014 Social History Date Tobacco Use Types Packs/Day Years Used Current Every Day Smoker Cigarettes 0.5 Smokeless Tobacco: Never Used Tobacco Cessation: Counseling Given: Yes Alcohol Use Drinks/Week oz/Week Comments Yes 5 Cans of 3.0 beer Sex Assigned at Date Recorded Not on file Industry Job Start Date Occupation Not on file Not on file Not on file Travel End Travel History Travel Start No recent travel history available. Last Filed Vital Signs Time Taken Vital Sign Reading 04/19/2015 11:22 AM CDT Blood Pressure 137/78 04/19/2015 11:22 AM CDT Pulse 85 04/19/2015 11:22 AM CDT Temperature 36.9 C (98.4 F) 03/22/2015 11:05 AM CDT Respiratory Rate 18 02/02/2015 1:30 PM CDT Oxygen Saturation 97% - Inhaled Oxygen - Concentration 04/19/2015 11:22 AM CDT Weight 108.9 kg (240 lb) 04/19/2015 11:22 AM CDT Height 190.5 cm (6' 3") 04/19/2015 11:22 AM CDT Body Mass Index 30 Plan of Treatment Health Maintenance Due Date Last Done Comments PHYSICAL (COMPREHENSIVE) 1992 EXAM HIV SCREENING 2000 DTAP/TDAP VACCINES (1 - 2003 Tdap) INFLUENZA VACCINE 04/13/2019 Results Not on filefrom Last 3 Months Insurance Type Payer Benefit Subscriber ID Effective Phone Address Plan / Dates Group Medicaid UHC MEDICAID [place] UHC xxxxxxxxxxx 2014- [facility] Present PLAN MD Advance Directives Patient has advance care planning documents on file. For more information, please contact: [address] [address]
--- OUTSIDE RECORDS SUMMARY | 2018-11-22 13:37 | XMS REPORT ---
Author Author PO SALCEDO [facility] Address [address] [place] [address] Phone Unavailable Care Team Providers Care Algologist Name Role Phone PO SALCEDO Unavailable Unavailable PROBLEMS Type Condition ICD9-CM Code HJA43-GE Code Onset Dates Condition Status SNOMED Code Problem Other chronic pain G89.29 Active 58210648 Problem Unspecified conjunctivitis 372.30 Active 5953906 Problem Crushing injury of hand(s) 927.20 Active 70116226 Problem Screening examination for venereal disease V74.5 Active 678854253 ALLERGIES No Known Allergies ENCOUNTERS Encounter Location Date Diagnosis [facility] [address] [address] November, Acute nasopharyngitis J00 [facility] [id number] [place] [address] November, Low back pain M54.5 and Other chronic pain G89.29 [facility] [id number] [place] [address] Jul, Injury of left hip, initial encounter S79.912A [facility] [address] [place], [place] [id number] [place] [address] November, Gastroenteritis and colitis, viral A08.4 [facility] [id number] [place] [address] November, Cellulitis of right upper extremity L03.113 [facility] [id number] [place] [address] May, Pharyngitis due to other organism J02.8 [facility] [address] [id number] Dec, Dental examination V72.2 [facility] [address], [place] [address] Oct, [facility] [address], [place] [address] Oct, [facility] [address], [place] [address] Apr, [facility] [id number] [place] [address] Apr, [facility] [address], [place] [address] Apr, [facility] [id number] [place] [address] Apr, [facility] [id number] [place] [address] Mar, [facility] [id number] [place] [address] Mar, [facility] [address], [place] [address] Mar, [facility] [address], [place] [address] Apr, [facility] [address], [place] [address] Apr, IMMUNIZATIONS No Known Immunizations SOCIAL HISTORY Never Assessed REASON FOR VISIT back pain/ spasm started today-- seen in er a few weeks ago JStrasserRN PLAN OF CARE Activity Details Follow Up prn Reason: VITAL SIGNS Height 75 in 2017-11-19 Weight 216.2 lbs 2017-11-19 Temperature 99.7 degrees Fahrenheit 2017-11-19 Heart Rate 92 bpm 2017-11-19 Respiratory Rate 20 2017-11-19 BMI 27.02 kg/m2 2017-11-19 Blood pressure systolic 130 mmHg 2017-11-19 Blood pressure diastolic 80 mmHg 2017-11-19 MEDICATIONS Medication Instructions Dosage Frequency Start Date End Date Duration Status Cyclobenzaprine HCl 5 mg Orally Three times a day 1 tablet as needed 8h November, November, 4 days Active Naprosyn 500 mg Orally every 12 hrs 1 tablet with food or milk as needed 12h November, November, 10 days Active Bactrim DS 800-160 mg 1 tablet by Oral route 2 times per day for 10 day(s) Apr, Not-Taking Erythromycin 5 mg/gram (0.5 %) apply 1 cm ribbon into the lower conjunctival sac in the left eye by ophthalmic route 4 times per day for 7 days Apr, Not-Taking Naproxen 500 mg take 1 tablet by Oral route 2 times per day with food for pain/swelling Apr, Not-Taking RESULTS No Results PROCEDURES No Known procedures INSTRUCTIONS MEDICATIONS ADMINISTERED No Known Medications
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
[2018-11-22] MEDS ORDERED: KETOROLAC 60 MG/2 ML VIAL IM ONE (13:45)
[2018-11-22] MEDS ORDERED: CYCLOBENZAPRINE 10 MG (FLEXERIL) TAB PO SCH (13:45)
--- NOTE | 2018-11-22 14:23 | NUR ---
PT STATES HE IS FEELING BETTER AFTER THE MEDICATIONS.
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
== END 2018-11-22 14:33 | disposition home or self-care (01) ==
LOC: EDUNIT# 13:01 → ER 13:03
DX: S39.012A Strain of muscle, fascia and tendon of lower back, initial encounter (principal); G43.909 Migraine, unspecified, not intractable, without status migrainosus; F17.210 Nicotine dependence, cigarettes, uncomplicated; Z98.890 Other specified postprocedural states; V48.9XXA Unspecified car occupant injured in noncollision transport accident in traffic accident, initial encounter
CPT/HCPCS: 99281

== ENCOUNTER 2019-01-25 07:55 | Emergency (ER) | payer SELFPAY ==
[~2019-01-25] VITALS: Ht 190.5 cm; Wt 106.6 kg
--- NOTE | 2019-01-25 08:28 | ED Neck-Back Pain/Injury ---
General Chief Complaint: Head/Cervical Problems Stated Complaint: NECK PAIN Nursing Triage Note: PT AMB TO [facility] 5 WITH COMPLAINT OF NECK PAIN AND MUSCLE STIFFNESS/TIGHTNESS. STATES THE PAIN AND TIGHTNESS CAUSES HIM TO HAVE MIGRAINES. STATES STARTED ON FRIDAY. DENIES INJURY. STATES TYLENOL AND ALEVE ARE NOT HELPING PAIN. Nursing Sepsis Screen: No Definite Risk Source of Information: Patient, Family Exam Limitations: No Limitations History of Present Illness Date Seen by Provider: Jan 25, 2019 Time Seen by Provider: 08:24 Initial Comments This 33-year-old male presents with a complaint of neck spasm and migraine headache. The patient awoke on Friday with us neck pain in the right cervical region making it difficult for the patient to turn his head. The patient has had an associated migraine headache. Patient has had migraine headaches for 2 decades. He has not found an effective treatment for his migraines. He has been seen by a neurologist. Patient denies fever, chills, nuchal rigidity, or photophobia. Allergies and Home Medications Allergies Coded Allergies: No Known Drug Allergies (Unverified , 05/31/15) Home Medications No Active Prescriptions or Reported Meds Patient Home Medication List Home Medication List Reviewed: Yes Review of Systems Constitutional: No chills, No diaphoresis, No dizziness, No fever EENTM: No hearing loss, No blurred vision Respiratory: no symptoms reported; No cough Cardiovascular: no symptoms reported Gastrointestinal: no symptoms reported; No nausea, No vomiting Genitourinary: No dysuria, No frequency Musculoskeletal: see HPI, neck pain Skin: no symptoms reported Psychiatric/Neurological: No Symptoms Reported Past Turkjhu-Evyqld-Vhgpbi Hx Past Med/Social Hx: Reviewed Nursing Past Med/Soc Hx Patient Social History Alcohol Use: Occasionally Uses Number of Drinks Today: AA Alcohol Beverage of Choice: Beer Recreational Drug Use: No Smoking Status: Current Everyday Smoker Type Used: Cigarettes 2nd Hand Smoke Exposure: No Recent Foreign Travel: No Contact w/Someone Who Travel: No Recent Infectious Disease Expo: No Recent Hopitalizations: No Immunizations Up To Date Tetanus Booster (TDap): Unknown Seasonal Allergies Seasonal Allergies: No Past Medical History Surgeries: Yes (LEFT HAND/FINGER STAPH INF SURGERY) Orthopedic Respiratory: No Cardiac: No Neurological: Yes Headaches /Migraines Genitourinary: No Gastrointestinal: No Musculoskeletal: No Endocrine: No HEENT: No Cancer: No Psychosocial: No Integumentary: Yes (STAPH INFECTION) Blood Disorders: No Family Medical History No Pertinent Family Hx Physical Exam Vital Signs Vital Signs - First Documented 01/25/19 07:58 Temp 98.0 Pulse 91 Resp 16 B/P (MAP) 134/78 (96) Pulse Ox 97 O2 Delivery Room Air Capillary Refill : Less Than 3 Seconds Height, Weight, BMI Height: 6'3.00" Weight: 235lbs. oz. 106.494390zh; BMI Method:Stated General Appearance: No Apparent Distress, WD/WN HEENT: Normal ENT Inspection Neck: Other (there as muscle stiffness and tightness over the right paracervical musculature) Cardiovascular: Regular Rate, Rhythm, No Murmur, Normal Peripheral Pulses Respiratory: Chest Non Tender, Lungs Clear, Normal Breath Sounds Gastrointestinal: Normal Bowel Sounds, Non Tender, Soft Back: Normal Inspection, No Vertebral Tenderness, Muscle Spasm Extremity: Normal Inspection (right paracervical musculature), Normal Range of Motion Neurologic/Psychiatric: Oriented x3, No Motor/Sensory Deficits, Normal Mood/Affect Skin: Normal Color, Warm/Dry Progress/Results/Core Measures Results/Orders My Orders Orders - SHO ORTIZ MD Iv 1000 Ml (Sodium Chloride 0.9%) (01/25/19 08:30) Ketorolac Injection (Toradol Injection) (01/25/19 08:30) Prochlorperazine Injection (Compazine In (01/25/19 08:30) Diphenhydramine Injection (Benadryl Inje (01/25/19 08:30) Medications Given in ED Current Medications Medications Dose Ordered Sig/Abner Route Start Time Stop Time Status Last Admin Dose Admin Diphenhydramine HCl 25 mg ONCE ONCE IM 01/25/19 08:30 01/25/19 08:31 DC 01/25/19 08:44 25 MG Ketorolac Tromethamine 30 mg ONCE ONCE IVP 01/25/19 08:30 01/25/19 08:31 DC 01/25/19 08:44 30 MG Prochlorperazine Edisylate 10 mg ONCE ONCE IV 01/25/19 08:30 01/25/19 08:31 DC 01/25/19 08:44 10 MG Vital Signs/I&O 01/25/19 07:58 Temp 98.0 Pulse 91 Resp 16 B/P (MAP) 134/78 (96) Pulse Ox 97 O2 Delivery Room Air Blood Pressure Mean: 96 Progress Progress Note : Time: 09:26 Progress Note The patient's migraine headache and right sided muscle spasm of his neck resolved with combination of IV Toradol, Compazine, and Benadryl. I visited with the patient concerning close follow-up with his caregiver. I prescribed oral Toradol for his headache and stiff neck should it recur. I asked that he return to the emergency Department for any problems or questions. Departure Impression Primary Impression: Migraine Qualified Codes: G43.009 - Migraine without aura, not intractable, without status migrainosus Additional Impression: Neck sprain Qualified Codes: S13.9XXA - Sprain of joints and ligaments of unspecified parts of neck, initial encounter Disposition: 01 HOME, SELF-CARE Condition: Improved Departure-Patient Inst. Decision time for Depature: 09:27 Referrals: [facility],LOCAL PHYSICIAN (PCP) Primary Care Physician Patient Instructions: Cervical Muscle Strain (DC), Migraine Headache (DC) Add. Discharge Instructions: Toradol for migraine and muscle spasm. Close follow-up with [facility]. Return if any problems or questions. All discharge instructions reviewed with patient and/or family. Voiced understanding. Scripts Ketorolac Tromethamine (Ketorolac Tromethamine) 10 Mg Tablet 10 MG PO Q6H for Pain, #20 TAB Prov: SHO ORTIZ MD 01/25/19 SHO ORTIZ MD Jan 25, 2019 08:28
[2019-01-25] MEDS ORDERED: KETOROLAC 30 MG/ML VIAL IVP ONE (08:30)
[2019-01-25] MEDS ORDERED: NS IV 1000 ML 1,000 ML IV SCH (08:30)
[2019-01-25] MEDS ORDERED: diphenhydrAMINE 50 MG/ML INJ (BENADRYL) IM ONE (08:30)
[2019-01-25] MEDS ORDERED: PROCHLORPERAZINE 10 MG/2ML INJ (COMPAZINE) IV ONE (08:30)
[2019-01-25] MEDS ORDERED: KETO10TA PO (09:29)
[2019-01-25 09:46] VITALS: BP 125/74
== END 2019-01-25 09:46 | disposition home or self-care (01) ==
LOC: EDUNIT# 07:55 → ER 07:56
DX: S13.9XXA Sprain of joints and ligaments of unspecified parts of neck, initial encounter (principal); G43.909 Migraine, unspecified, not intractable, without status migrainosus; F17.210 Nicotine dependence, cigarettes, uncomplicated; X58.XXXA Exposure to other specified factors, initial encounter
CPT/HCPCS: 96361; 96372; 96374; 96375; 99284

== ENCOUNTER 2019-02-18 20:56 | Emergency (ER) | payer SELFPAY ==
[~2019-02-18] VITALS: Ht 190.5 cm; Wt 102.1 kg
[~2019-02-18 20:56] MED LIST changes: +KETO10TA PO
[2019-02-18] MEDS ORDERED: FAMOTIDINE 20 MG (PEPCID) TABLET PO STA (21:10)
[2019-02-18] MEDS ORDERED: LIDOCAINE 2% VISCOUS 15 ML UDC PO ONE (21:15)
[2019-02-18] MEDS ORDERED: ANTACID SUSP 30 ML UDC (MYLANTA) PO ONE (21:15)
--- NOTE | 2019-02-18 21:15 | ED Abdominal Pain ---
General Chief Complaint: Abdominal/GI Problems Stated Complaint: ABD CRAMPING,LOWER BACK PAIN Nursing Triage Note: pt states he is having stomach cramps and back cramps all day. Pt also having diarrhea Sepsis Screen: No Definite Risk Source of Information: Patient Exam Limitations: No Limitations History of Present Illness Date Seen by Provider: Feb 18, 2019 Time Seen by Provider: 21:01 Initial Comments Patient presents to ER by private conveyance with chief complaint that this morning he woke up was having some generalized abdominal pain worse in the suprapubic region. No dysuria or hematuria but last week his nose some blood in his stool bright red. He has no history of colonoscopy abdominal surgeries or abdominal trauma. No history of medical problems nor does he take any medicines. He does not follow with a physician. He has not taken anything for his discomfort. He has occasional acid reflux for which he uses Tums but has not taken any today. No fevers chills sweats. Allergies and Home Medications Allergies Coded Allergies: No Known Drug Allergies (Unverified , 05/31/15) Home Medications Ketorolac Tromethamine 10 Mg Tablet, 10 MG PO Q6H Prescribed by: SHO ORTIZ MD on 01/25/19 0925 Patient Home Medication List Home Medication List Reviewed: Yes Review of Systems Review of Systems Constitutional: No chills, No fever, No malaise EENTM: No Blurred Vision, No Double Vision Respiratory: Denies Cough, Denies Shortness of Air Cardiovascular: Denies Chest Pain, Denies Edema, Denies Lightheadedness Gastrointestinal: See HPI, Abdominal Pain (cramping pain); Denies Constipated, Denies Diarrhea, Denies Nausea Genitourinary: Denies Burning, Denies Discharge Musculoskeletal: back pain (lumbar back pain); No joint pain Skin: No pruritus, No rash Past Jwrzjyz-Yatagk-Yqvppe Hx Patient Social History Alcohol Use: Occasionally Uses Alcohol Beverage of Choice: Beer Recreational Drug Use: No Smoking Status: Current Everyday Smoker Type Used: Cigarettes 2nd Hand Smoke Exposure: No Recent Foreign Travel: No Contact w/Someone Who Travel: No Recent Infectious Disease Expo: No Recent Hopitalizations: No Immunizations Up To Date Tetanus Booster (TDap): Unknown Seasonal Allergies Seasonal Allergies: No Past Medical History Surgeries: Yes (LEFT HAND/FINGER STAPH INF SURGERY) Orthopedic Respiratory: No Cardiac: No Neurological: Yes Headaches /Migraines Genitourinary: No Gastrointestinal: No Musculoskeletal: No Endocrine: No HEENT: No Cancer: No Psychosocial: No Integumentary: Yes (STAPH INFECTION) Blood Disorders: No Family Medical History No Pertinent Family Hx Physical Exam Vital Signs Vital Signs - First Documented 02/18/19 20:58 Temp 97.3 B/P (MAP) 127/79 (95) Pulse Ox 99 O2 Delivery Room Air Capillary Refill : Less Than 3 Seconds Height/Weight/BMI Height: 6'3.00" Weight: 225lbs. oz. 102.636910cs; BMI Method:Stated General Appearance: WD/WN, mild distress HEENT: PERRL/EOMI, normal ENT inspection, TMs normal, pharynx normal Neck: non-tender, full range of motion Respiratory: lungs clear, normal breath sounds, no respiratory distress, no accessory muscle use Cardiovascular: normal peripheral pulses, regular rate, rhythm, no edema Peripheral Pulses: 2+ Radial Pulses (R), 2+ Radial Pulses (L) Gastrointestinal: normal bowel sounds, soft, no organomegaly, tenderness (diffuse all 4 quadrants), other (negative for mesenteric signs, psoas signs etc.) Extremities: normal range of motion, non-tender, normal inspection, no pedal edema, normal capillary refill Neurologic/Psychiatric: alert, normal mood/affect, oriented x 3 Skin: normal color, warm/dry Progress/Results/Core Measures Results/Orders Lab Results Laboratory Tests Test 02/18/19 21:13 02/18/19 21:36 Range/Units White Blood Count 7.4 4.3-11.0 10^3/uL Red Blood Count 5.06 4.35-5.85 10^6/uL Hemoglobin 14.0 13.3-17.7 G/DL Hematocrit 43 40-54 % Mean Corpuscular Volume 85 80-99 FL Mean Corpuscular Hemoglobin 28 25-34 PG Mean Corpuscular Hemoglobin Concent 32 32-36 G/DL Red Cell Distribution Width 14.5 10.0-14.5 % Platelet Count 295 130-400 10^3/uL Mean Platelet Volume 9.8 7.4-10.4 FL Neutrophils (%) (Auto) 38 L 42-75 % Lymphocytes (%) (Auto) 50 H 12-44 % Monocytes (%) (Auto) 7 0-12 % Eosinophils (%) (Auto) 6 0-10 % Basophils (%) (Auto) 0 0-10 % Neutrophils # (Auto) 2.8 1.8-7.8 X 10^3 Lymphocytes # (Auto) 3.7 1.0-4.0 X 10^3 Monocytes # (Auto) 0.5 0.0-1.0 X 10^3 Eosinophils # (Auto) 0.4 H 0.0-0.3 10^3/uL Basophils # (Auto) 0.0 0.0-0.1 10^3/uL Sodium Level 143 135-145 MMOL/L Potassium Level 4.0 3.6-5.0 MMOL/L Chloride Level 109 H 98-107 MMOL/L Carbon Dioxide Level 24 21-32 MMOL/L Anion Gap 10 5-14 MMOL/L Blood Urea Nitrogen 6 L 7-18 MG/DL Creatinine 0.94 0.60-1.30 MG/DL Estimat Glomerular Filtration Rate > 60 BUN/Creatinine Ratio 6 Glucose Level 130 H 70-105 MG/DL Calcium Level 9.0 8.5-10.1 MG/DL Corrected Calcium 9.0 8.5-10.1 MG/DL Total Bilirubin 0.2 0.1-1.0 MG/DL Aspartate Amino Transf (AST/SGOT) 17 5-34 U/L Alanine Aminotransferase (ALT/SGPT) 22 0-55 U/L Alkaline Phosphatase 75 40-136 U/L Total Protein 6.5 6.4-8.2 GM/DL Albumin 4.0 3.2-4.5 GM/DL Amylase Level 82 25-125 U/L Lipase 41 8-78 U/L Urine Color YELLOW Urine Clarity CLEAR Urine pH 7 5-9 Urine Specific Sargeant 1.010 L 1.016-1.022 Urine Protein NEGATIVE NEGATIVE Urine Glucose (UA) NEGATIVE NEGATIVE Urine Ketones NEGATIVE NEGATIVE Urine Nitrite NEGATIVE NEGATIVE Urine Bilirubin NEGATIVE NEGATIVE Urine Urobilinogen 1 NORMAL MG/DL Urine Leukocyte Esterase 1+ H NEGATIVE Urine RBC (Auto) NEGATIVE NEGATIVE Urine RBC NONE /HPF Urine WBC 2-5 /HPF Urine Squamous Epithelial Cells 2-5 /HPF Urine Crystals NONE /LPF Urine Bacteria TRACE /HPF Urine Casts NONE /LPF Urine Mucus NEGATIVE /LPF Urine Culture Indicated YES My Orders Orders - FRANCISCO JAVIER LEIGH Lidocaine 2% Viscous 15 Ml (Xylocaine Vi (02/18/19 21:15) Famotidine Tablet (Pepcid Tablet) (02/18/19 21:10) Antacid Suspension (Mylanta Suspension (02/18/19 21:15) Occult Blood Stool (02/18/19 21:36) Abdomen, Flat & Upright/Decub (02/18/19 21:57) Ketorolac Injection (Toradol Injection) (02/18/19 22:15) Medications Given in ED Current Medications Medications Dose Ordered Sig/Abner Route Start Time Stop Time Status Last Admin Dose Admin Al Hydrox/Mg Hydrox/Simethicone 30 ml ONCE ONCE PO 02/18/19 21:15 02/18/19 21:16 DC 02/18/19 21:58 30 ML Ketorolac Tromethamine 30 mg ONCE ONCE IVP 02/18/19 22:15 02/18/19 22:16 DC 02/18/19 23:17 30 MG Lidocaine HCl 15 ml ONCE ONCE PO 02/18/19 21:15 02/18/19 21:16 DC 02/18/19 21:58 15 ML Vital Signs/I&O 02/18/19 20:58 Temp 97.3 B/P (MAP) 127/79 (95) Pulse Ox 99 O2 Delivery Room Air Blood Pressure Mean: 95 Progress Progress Note #1: Time: 21:58 Progress Note Fecal occult test was negative. We'll add x-rays of the abdomen since labs are unremarkable. GI cocktail 5 minutes later that his throat but not anything cramping pain. We'll try an NSAID. Progress Note #2: Time: 23:25 Progress Note The patient's abdominal cramping is almost completely let up. Suspect he might have a mild viral colitis. He is not having any nausea. We'll instruct him to use NSAIDs, Tylenol and heating pads and if is not improving in a couple days follow-up. Diagnostic Imaging Diagonstic Imaging: Xray Plain Films/CT/US/NM/MRI: abdomen (KUB upright and decubitus), pelvis Comments Nonobstructive, no air-fluid levels, nonspecific bowel gas pattern. No evidence of constipation. Reviewed: Reviewed by Me Departure Impression Primary Impression: Ileitis Disposition: 01 HOME, SELF-CARE Condition: Improved Departure-Patient Inst. Decision time for Depature: 23:26 Referrals: NO,LOCAL PHYSICIAN (PCP/Family) Primary Care Physician Patient Instructions: Colitis (DC) Add. Discharge Instructions: I suspect you may have a viral inflammation of your small intestines or even your bowel. If your cramping pain returns use an NSAID such as ibuprofen 800 mg every 8 hours or Naprosyn/Aleve/naproxen 2 tablets twice a day as needed. You can also use Tylenol 1000 mg every 8 hours and heating pads. If you continue to have blood in her stool and instructed to follow-up with a primary care doctor and consider colonoscopy or further workup. If your symptoms worsen or you have intractable nausea vomiting, pain or fever then you can return to the nearest ER for further evaluation and management. All discharge instructions reviewed with patient and/or family. Voiced understanding. Work/School Note: Work Release Form Date Seen in the Emergency Department: Feb 18, 2019 Return to Work: Feb 19, 2019 Restrictions: No Restrictions FRANCISCO JAVIER LEIGH Feb 18, 2019 21:15
[2019-02-18 21:35] LABS: BASOPHILS % (AUTO) 0 % (0-10); EOSINOPHILS # (AUTO) 0.4 10^3/uL (0.0-0.3); EOSINOPHILS % (AUTO) 6 % (0-10); HEMATOCRIT 43 % (40-54); LYMPHOCYTES # (AUTO) 3.7 X 10^3 (1.0-4.0); LYMPHOCYTES % (AUTO) 50 % (12-44); MEAN CORPUSCULAR HEMOGLOBIN 28 PG (25-34); MEAN CORPUSCULAR HGB CONC 32 G/DL (32-36); MEAN CORPUSCULAR VOLUME 85 FL (80-99); MEAN PLATELET VOLUME 9.8 FL (7.4-10.4); MONOCYTES # (AUTO) 0.5 X 10^3 (0.0-1.0); MONOCYTES % (AUTO) 7 % (0-12); NEUTROPHILS # (AUTO) 2.8 X 10^3 (1.8-7.8); NEUTROPHILS % (AUTO) 38 % (42-75); PLATELET COUNT 295 10^3/uL (130-400); RED CELL DISTRIBUTION WIDTH 14.5 % (10.0-14.5); WHITE BLOOD COUNT 7.4 10^3/uL (4.3-11.0)
[2019-02-18 21:42] LABS: BILIRUBIN,URINE NEGATIVE (NEGATIVE); CLARITY,URINE CLEAR; COLOR,URINE YELLOW; GLUCOSE, URINE (UA) NEGATIVE (NEGATIVE); KETONES,URINE NEGATIVE (NEGATIVE); LEUKOCYTE ESTERASE ,URINE 1+ (NEGATIVE); NITRITE,URINE NEGATIVE (NEGATIVE); PH,URINE 7 (5-9); PROTEIN,URINE NEGATIVE (NEGATIVE); UROBILINOGEN,URINE 1 MG/DL (NORMAL)
[2019-02-18 21:52] LABS: ALANINE AMINOTRANSFERASE 22 U/L (0-55); ALKALINE PHOSPHATASE 75 U/L (40-136); AMYLASE 82 U/L (25-125); BILIRUBIN,TOTAL 0.2 MG/DL (0.1-1.0); BUN/CREATININE RATIO 6; CARBON DIOXIDE 24 MMOL/L (21-32); CHLORIDE 109 MMOL/L (98-107); CREATININE SERUM 0.94 MG/DL (0.60-1.30); GFR ESTIMATED > 60; GLUCOSE 130 MG/DL (70-105); LIPASE 41 U/L (8-78); SODIUM 143 MMOL/L (135-145); TOTAL PROTEIN 6.5 GM/DL (6.4-8.2)
[2019-02-18 21:53] LABS: BACTERIA,URINE TRACE /HPF
[2019-02-18] MEDS ORDERED: KETOROLAC 30 MG/ML VIAL IVP ONE (22:15)
[2019-02-18 23:42] VITALS: BP 111/76
--- OUTSIDE RECORDS SUMMARY | 2019-02-19 03:46 | XMS REPORT ---
Author Author Migration, Doctor Organization [facility] Address Unknown Phone Unavailable Care Team Providers Care Hub Associate Name Role Phone Migration, Doctor Unavailable Unavailable PROBLEMS Type Condition ICD9-CM Code [id number] Code Onset Dates Condition Status SNOMED Code Problem Unspecified conjunctivitis 372.30 Active 8291664 Problem Other chronic pain G89.29 Active 96528498 Problem Screening examination for venereal disease V74.5 Active 226961460 Problem Crushing injury of hand(s) 927.20 Active 67111761 ALLERGIES No Information ENCOUNTERS Encounter Location Date Diagnosis [facility] [address] [address] November, Acute nasopharyngitis J00 [facility] [address] [address] November, Low back pain M54.5 and Other chronic pain G89.29 [facility] [address] [address] Jul, Injury of left hip, initial encounter S79.912A [facility] [address] [place] [address] November, Gastroenteritis and colitis, viral A08.4 [facility] [address] [address] November, Cellulitis of right upper extremity L03.113 [facility] [address] [address] May, Pharyngitis due to other organism J02.8 [facility] [address] [id number] Dec, Dental examination V72.2 [facility] [address] [address] 14 Oct, 2014 [facility] [address] [place] [address] 13 Oct, 2014 [facility] [address] [place] [address] 18 Apr, 2013 [facility] [address] [place] [address] 18 Apr, 2013 [facility] [address] [place] [address] Apr, [facility] [address] [place] [address] Apr, [facility] [address] [address] Mar, [facility] [address] [place] [address] Mar, [facility] [address] [place] [address] Mar, [facility] [id number] [address] Apr, [facility] [id number] [address] Apr, IMMUNIZATIONS No Known Immunizations SOCIAL HISTORY Never Assessed REASON FOR VISIT EMR-[facility] PLAN OF CARE VITAL SIGNS MEDICATIONS No Known Medications RESULTS No Results PROCEDURES No Known procedures INSTRUCTIONS MEDICATIONS ADMINISTERED No Known Medications
--- OUTSIDE RECORDS SUMMARY | 2019-02-19 03:46 | XMS REPORT | Clinical Summary ---
Author Author [facility] Organization [facility] Address Unknown Phone Unavailable Care Team Providers Care Manager Support Services Name Role Phone Dominguez Castro MD Unavailable Zunilda Jackson RN Unavailable Unavailable Stacia Grey MD PCP Mary Calixto RN Unavailable Unavailable Azucena Pantoja RN Unavailable Unavailable Emani Cheema RN Unavailable Unavailable Source Comments Some departments are not documenting in the electronic medical record. If you d o not see the information that you expected, contact Release of Information in [facility] Information Management department at [phone] for further assistan ce in locating additional records.[facility] Allergies No Known Allergies Medications No known medications Active Problems Problem Noted Date Flexion contracture of joint of hand 08/29/2014 Social History Date Tobacco Use Types Packs/Day Years Used Current Every Day Smoker Cigarettes 0.5 Smokeless Tobacco: Never Used Tobacco Cessation: Counseling Given: Yes Drinks/Week oz/Week Comments Alcohol Use 5 Cans of beer 3.0 Yes Sex Assigned at Date Recorded Not on file Industry Job Start Date Occupation Not on file Not on file Not on file Travel End Travel History Travel Start No recent travel history available. Last Filed Vital Signs Reading Time Taken Comments Vital Sign 137/78 04/19/2015 11:22 AM CDT Blood Pressure 85 04/19/2015 11:22 AM CDT Pulse 36.9 C (98.4 F) 04/19/2015 11:22 AM CDT Temperature 18 03/22/2015 11:05 AM CDT Respiratory Rate 97% 02/02/2015 1:30 PM CDT Oxygen Saturation - - Inhaled Oxygen Concentration 108.9 kg (240 lb) 04/19/2015 11:22 AM CDT Weight 190.5 cm (6' 3") 04/19/2015 11:22 AM CDT Height 30 04/19/2015 11:22 AM CDT Body Mass Index Plan of Treatment Health Maintenance Due Date Last Done Comments PHYSICAL (COMPREHENSIVE) 1992 EXAM HIV SCREENING 2000 DTAP/TDAP VACCINES (1 - 2003 Tdap) INFLUENZA VACCINE 04/13/2019 Results Not on filefrom Last 3 Months Insurance Type Payer Benefit Subscriber ID Effective Phone Address Plan / Dates Group Medicaid UHC [place]ICAID [place] U[place] xxxxxxxxxxx 2014- [place] Advance Directives Patient Coat Check Attendant Explanation Type Date Recorded Advance 12/08/2014 11:32 AM Directive/DPOA
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
--- NOTE | 2019-02-19 07:24 | Diagnostic Imaging Report ---
INDICATION: Abdominal pain. TECHNIQUE: Supine and upright frontal views of the abdomen. COMPARISON: None FINDINGS: There are a few mildly prominent loops of small bowel, without significant distention. No large collection of free air is seen. There is moderate stool in the right colon. IMPRESSION: 1. A few mildly prominent loops of small bowel without significant distention. There is moderate stool in the right colon. Dictated by: Dictated on workstation # [id number]
== END 2019-02-18 23:50 | disposition home or self-care (01) ==
LOC: EDUNIT# 20:56 → ER 20:57
DX: K52.9 Noninfective gastroenteritis and colitis, unspecified (principal); G43.909 Migraine, unspecified, not intractable, without status migrainosus; F17.210 Nicotine dependence, cigarettes, uncomplicated
CPT/HCPCS: 36415; 74019; 80053; 81000; 82150; 82274; 83690; 85025; 87088

== ENCOUNTER 2019-03-15 21:10 | Emergency (ER) | payer SELFPAY ==
[~2019-03-15] VITALS: Ht 190.5 cm; Wt 99.8 kg
--- NOTE | 2019-03-15 21:20 | ED Head Injury ---
General Stated Complaint: FALL,HEAD PAIN Source: patient Exam Limitations: no limitations History of Present Illness Date Seen by Provider: Mar 15, 2019 Time Seen by Provider: 21:18 Initial Comments To ER with reports of fall and subsequent head injury that occurred earlier this afternoon. He slipped going down some steps and struck the occiput on the steps. No loss of consciousness, recalls all events. Since then he's been having headache, dizziness, light sensitivity. Occurred: this afternoon Severity: moderate Location: occipital Method of Injury: direct blow Loss of Consciousness: no loss of consciousness Associated Systoms: Headaches Allergies and Home Medications Allergies Coded Allergies: No Known Drug Allergies (Unverified , 05/31/15) Patient Home Medication List Home Medication List Reviewed: Yes Review of Systems Review of Systems Constitutional: see HPI Eyes: No Symptoms Reported Ears, Nose, Mouth, Throat: no symptoms reported Respiratory: no symptoms reported Cardiovascular: no symptoms reported Genitourinary: no symptoms reported Musculoskeletal: no symptoms reported Skin: no symptoms reported Psychiatric/Neurological: See HPI, Headache Endocrine: No Symptoms Reported Past Nyjxmnq-Aycozt-Towngr Hx Patient Social History Alcohol Beverage of Choice: Beer Type Used: Cigarettes 2nd Hand Smoke Exposure: No Recent Foreign Travel: No Contact w/Someone Who Travel: No Recent Hopitalizations: No Immunizations Up To Date Tetanus Booster (TDap): Unknown Seasonal Allergies Seasonal Allergies: No Past Medical History Surgeries: Yes (LEFT HAND/FINGER STAPH INF SURGERY) Orthopedic Respiratory: No Cardiac: No Neurological: Yes Headaches /Migraines Genitourinary: No Gastrointestinal: No Musculoskeletal: No Endocrine: No HEENT: No Cancer: No Psychosocial: No Integumentary: Yes (STAPH INFECTION) Blood Disorders: No Family Medical History No Pertinent Family Hx Physical Exam Vital Signs Vital Signs - First Documented 03/15/19 21:12 Temp 98.5 Pulse 99 Resp 22 B/P (MAP) 139/86 (103) Capillary Refill : Height, Weight, BMI Height: 6'3.00" Weight: 225lbs. oz. 102.719966uc; BMI Method:Stated General Appearance: WD/WN, no apparent distress HEENT: PERRL/EOMI, normal ENT inspection, TMs normal Neck: non-tender, full range of motion Respiratory: no respiratory distress, no accessory muscle use Gastrointestinal: normal bowel sounds, non tender Extremities: normal range of motion, non-tender Psychiatric: alert, oriented x 3 Crainal Nerves: normal hearing, normal speech, PERRL Skin: normal color, warm/dry Dillan Coma Score Best Eye Response: (4) Open Spontaneously Best Verbal Response: (5) Oriented Best Motor Response: (6) Obeys Commands Dillan Total: 15 Progress/Results/Core Measures Results/Orders My Orders Orders - MITRA MACHADO APRN Ct Head Wo (03/15/19 21:16) Vital Signs/I&O 03/15/19 21:12 Temp 98.5 Pulse 99 Resp 22 B/P (MAP) 139/86 (103) Departure Impression Primary Impression: Concussion Qualified Codes: S06.0X0A - Concussion without loss of consciousness, initial encounter Disposition: 01 HOME, SELF-CARE Condition: Stable Departure-Patient Inst. Decision time for Depature: 21:19 Referrals: NO,LOCAL PHYSICIAN (PCP/Family) Primary Care Physician Patient Instructions: Concussion in Adults Add. Discharge Instructions: 1. Tylenol and ibuprofen for headache. Stay home from work tomorrow, the note for work is the very last page of this packet. Follow-up with your doctor later in the week. Return to ER for any worsening. Work/School Note: Work Release Form Date Seen in the Emergency Department: Mar 15, 2019 Return to Work: Mar 17, 2019 MITRA MACHADO APRN Mar 15, 2019 21:20
--- NOTE | 2019-03-15 21:37 | Diagnostic Imaging Report ---
PROCEDURE: CT head without contrast. TECHNIQUE: Multiple contiguous axial images were obtained through the brain without the use of intravenous contrast. Auto Exposure Controls were utilized during the CT exam to meet ALARA standards for radiation dose reduction. INDICATION: Fell and hit head FINDINGS: The ventricles are normal in size, shape and position. There is no acute parenchymal hemorrhage, edema or mass. There is no extra-axial mass or hemorrhage. There is no skull fracture. IMPRESSION: Normal CT of the head. Dictated by: Dictated on workstation # [id number]
[2019-03-15 21:46] VITALS: BP 131/83
== END 2019-03-15 21:46 | disposition home or self-care (01) ==
LOC: EDUNIT# 21:10 → ER 21:11
DX: S06.0X0A Concussion without loss of consciousness, initial encounter (principal); G43.909 Migraine, unspecified, not intractable, without status migrainosus; R40.2142 Coma scale, eyes open, spontaneous, at arrival to emergency department; R40.2252 Coma scale, best verbal response, oriented, at arrival to emergency department; R40.2362 Coma scale, best motor response, obeys commands, at arrival to emergency department; W10.9XXA Fall (on) (from) unspecified stairs and steps, initial encounter; W22.8XXA Striking against or struck by other objects, initial encounter
CPT/HCPCS: 70450

== ENCOUNTER 2019-09-03 16:22 | Emergency (ER) | payer SELFPAY ==
[~2019-09-03] VITALS: Ht 187 cm; Wt 97.5 kg
[~2019-09-03 16:22] MED LIST changes: -IBUP-2055 PO; +IBUP-2473 PO
[2019-09-03] MEDS ORDERED: KETOROLAC 30 MG/ML VIAL IVP ONE (16:30)
--- NOTE | 2019-09-03 16:33 | ED Chest Pain ---
General Chief Complaint: Chest Pain Stated Complaint: CP Nursing Triage Note: WOKE UP WITH CHEST PAIN. STATES IT HURTS TO MOVE AND BREATHE. HAS HAD A COUGH. Nursing Sepsis Screen: No Definite Risk Source: patient Exam Limitations: no limitations History of Present Illness Date Seen by Provider: Sep 03, 2019 Time Seen by Provider: 16:31 Initial Comments To ER with sharp left-sided chest pain worsened by deep breathing and movement that he awakened with this morning, noticed it when trying to sit up out of bed. Recently both he and his significant other have had an influenza-like illness last week. No fevers currently. No cardiac history. Timing/Duration: 4-6 hours Severity/Quality: moderate Location: other (left anterior) Radiation: no radiation ASA po GARAGE HELPER: No NTG SL GARAGE HELPER: No Associated Symptoms: No shortness of breath Allergies and Home Medications Allergies Coded Allergies: No Known Drug Allergies (Unverified , 05/31/15) Home Medications No Active Prescriptions or Reported Meds Patient Home Medication List Home Medication List Reviewed: Yes Review of Systems Review of Systems Constitutional: see HPI; No chills, No fever EENTM: No Symptoms Reported Respiratory: See HPI, Other (pleurodynia) Cardiovascular: No Symptoms Reported Gastrointestinal: See HPI, Abdominal Pain Genitourinary: No Symptoms Reported Musculoskeletal: no symptoms reported Skin: no symptoms reported Psychiatric/Neurological: No Symptoms Reported Endocrine: No Symptoms Reported Hematologic/Lymphatic: No Symptoms Reported Past Suiokxg-Jpmlha-Cnatxe Hx Patient Social History Alcohol Use: Occasionally Uses Alcohol Beverage of Choice: Beer Recreational Drug Use: No Smoking Status: Current Everyday Smoker Type Used: Cigarettes 2nd Hand Smoke Exposure: No Recent Foreign Travel: No Contact w/Someone Who Travel: No Recent Infectious Disease Expo: No Recent Hopitalizations: No Immunizations Up To Date Tetanus Booster (TDap): Unknown Seasonal Allergies Seasonal Allergies: No Past Medical History Surgeries: Yes (LEFT HAND/FINGER STAPH INF SURGERY) Orthopedic Respiratory: No Cardiac: No Neurological: Yes Headaches /Migraines Genitourinary: No Gastrointestinal: No Musculoskeletal: No Endocrine: No HEENT: No Cancer: No Psychosocial: No Integumentary: Yes (STAPH INFECTION) Blood Disorders: No Family Medical History No Pertinent Family Hx Physical Exam Vital Signs Vital Signs - First Documented 09/03/19 16:22 Temp 36.6 Pulse 86 Resp 16 B/P (MAP) 134/80 (98) Pulse Ox 99 O2 Delivery Room Air Capillary Refill : Less Than 3 Seconds Height, Weight, BMI Height: 6'3.00" Weight: 220lbs. oz. 99.306653cb; 27.00 BMI Method:Stated General Appearance: No Apparent Distress, WD/WN Neck: Full Range of Motion, Normal Inspection Respiratory: No Accessory Muscle Use, No Respiratory Distress, Other (left anterior lower chest wall tender to palpation) Cardiovascular: Regular Rate, Rhythm, Normal Peripheral Pulses Gastrointestinal: Non Tender, Soft Extremity: Normal Capillary Refill, Normal Inspection Neurologic/Psychiatric: Alert, Oriented x3 Skin: Normal Color, Warm/Dry Progress/Results/Core Measures Results/Orders Lab Results Laboratory Tests Test 09/03/19 16:20 Range/Units White Blood Count 6.0 4.3-11.0 10^3/uL Red Blood Count 4.73 4.35-5.85 10^6/uL Hemoglobin 13.2 L 13.3-17.7 G/DL Hematocrit 40 40-54 % Mean Corpuscular Volume 85 80-99 FL Mean Corpuscular Hemoglobin 28 25-34 PG Mean Corpuscular Hemoglobin Concent 33 32-36 G/DL Red Cell Distribution Width 14.3 10.0-14.5 % Platelet Count 361 130-400 10^3/uL Mean Platelet Volume 9.0 7.4-10.4 FL Neutrophils (%) (Auto) 38 L 42-75 % Lymphocytes (%) (Auto) 47 H 12-44 % Monocytes (%) (Auto) 14 H 0-12 % Eosinophils (%) (Auto) 1 0-10 % Basophils (%) (Auto) 0 0-10 % Neutrophils # (Auto) 2.3 1.8-7.8 X 10^3 Lymphocytes # (Auto) 2.8 1.0-4.0 X 10^3 Monocytes # (Auto) 0.8 0.0-1.0 X 10^3 Eosinophils # (Auto) 0.1 0.0-0.3 10^3/uL Basophils # (Auto) 0.0 0.0-0.1 10^3/uL Sodium Level 142 135-145 MMOL/L Potassium Level 4.0 3.6-5.0 MMOL/L Chloride Level 109 H 98-107 MMOL/L Carbon Dioxide Level 25 21-32 MMOL/L Anion Gap 8 5-14 MMOL/L Blood Urea Nitrogen 8 7-18 MG/DL Creatinine 0.88 0.60-1.30 MG/DL Estimat Glomerular Filtration Rate > 60 BUN/Creatinine Ratio 9 Glucose Level 98 70-105 MG/DL Calcium Level 9.2 8.5-10.1 MG/DL Corrected Calcium 9.2 8.5-10.1 MG/DL Magnesium Level 1.9 1.6-2.4 MG/DL Total Bilirubin 0.2 0.1-1.0 MG/DL Aspartate Amino Transf (AST/SGOT) 17 5-34 U/L Alanine Aminotransferase (ALT/SGPT) 28 0-55 U/L Alkaline Phosphatase 83 40-136 U/L Troponin I < 0.028 <0.028 NG/ML C-Reactive Protein High Sensitivity 0.03 0.00-0.50 MG/DL Total Protein 6.8 6.4-8.2 GM/DL Albumin 4.0 3.2-4.5 GM/DL My Orders Orders - MITRA MACHADO APRN Cbc With Automated Diff (09/03/19 16:28) Magnesium (09/03/19 16:28) Ekg Tracing (09/03/19 16:28) Comprehensive Metabolic Panel (09/03/19 16:28) Monitor-Rhythm Ecg Trace Only (09/03/19 16:28) Lipid Panel (09/04/19 06:00) Ed Iv/Invasive Line Start (09/03/19 16:28) Troponin I (09/03/19 16:28) Ketorolac Injection (Toradol Injection) (09/03/19 16:30) Chest Pa/Lat (2 View) (09/03/19 16:28) Hs C Reactive Protein (09/03/19 16:34) Erythrocyte Sedimentation Rate (09/03/19 16:37) Ekg Tracing (09/03/19 16:41) Medications Given in ED Current Medications Medications Dose Ordered Sig/Abner Route Start Time Stop Time Status Last Admin Dose Admin Ketorolac Tromethamine 30 mg ONCE ONCE IVP 09/03/19 16:30 09/03/19 16:31 DC 09/03/19 16:34 30 MG Vital Signs/I&O 09/03/19 2 16:22 16:22 Temp 36.6 Pulse 86 Resp 16 B/P (MAP) 134/80 (98) Pulse Ox 99 O2 Delivery Room Air Room Air Blood Pressure Mean: 98 Diagnostic Imaging Diagonstic Imaging: Xray Comments NAME: WILDER MONGE JR [facility] REC#: [id number] PT STATUS: REG ER : 1985 PHYSICIAN: MITRA MACHADO APRN ADMIT DATE: 09/03/19/ER Signed Date of Exam:09/03/19 CHEST PA/LAT (2 VIEW) Indication: Chest pain PA and lateral chest Heart size and pulmonary vascularity are normal. Lungs are clear. There are no effusions or pneumothoraces. IMPRESSION: Negative chest Dictated by: Dictated on workstation # [id number] Dict: 09/03/191654 Trans: 09/03/191655 [id number] Interpreted by: REGINA BARBER MD Electronically signed by: REGINA BARBER MD 09/03/191655 Departure Communication (Admissions) Mild diffuse ST segment elevation without reciprocal changes. We will place him on NSAIDs, discharged home. Impression Primary Impression: Pericarditis Qualified Codes: I30.1 - Infective pericarditis Disposition: HOME, SELF-CARE Condition: Stable Departure-Patient Inst. Decision time for Depature: 17:07 Referrals: NO,LOCAL PHYSICIAN (PCP/Family) Primary Care Physician Patient Instructions: Pericarditis in Adults Add. Discharge Instructions: 1. Return to Er for any concerns 2. Follow up wtih your doctor next week week 3. Medication as directed All discharge instructions reviewed with patient and/or family. Voiced understanding. Scripts Ibuprofen (Ibuprofen) 800 Mg Tablet 800 MG PO Q8H PRN for PAIN-MILD, #30 TAB Prov: MITRA MACHADO APRN 09/03/19 MITRA MACHADO APRN Sep 03, 2019 16:33
[2019-09-03 16:47] LABS: BASOPHILS % (AUTO) 0 % (0-10); EOSINOPHILS # (AUTO) 0.1 10^3/uL (0.0-0.3); EOSINOPHILS % (AUTO) 1 % (0-10); HEMATOCRIT 40 % (40-54); HEMOGLOBIN 13.2 G/DL (13.3-17.7); LYMPHOCYTES # (AUTO) 2.8 X 10^3 (1.0-4.0); LYMPHOCYTES % (AUTO) 47 % (12-44); MEAN CORPUSCULAR HEMOGLOBIN 28 PG (25-34); MEAN CORPUSCULAR HGB CONC 33 G/DL (32-36); MEAN CORPUSCULAR VOLUME 85 FL (80-99); MONOCYTES # (AUTO) 0.8 X 10^3 (0.0-1.0); MONOCYTES % (AUTO) 14 % (0-12); NEUTROPHILS # (AUTO) 2.3 X 10^3 (1.8-7.8); NEUTROPHILS % (AUTO) 38 % (42-75); PLATELET COUNT 361 10^3/uL (130-400); RED CELL DISTRIBUTION WIDTH 14.3 % (10.0-14.5)
[2019-09-03 16:57] LABS: ALANINE AMINOTRANSFERASE 28 U/L (0-55); ALKALINE PHOSPHATASE 83 U/L (40-136); BILIRUBIN,TOTAL 0.2 MG/DL (0.1-1.0); BUN/CREATININE RATIO 9; CALCIUM 9.2 MG/DL (8.5-10.1); CARBON DIOXIDE 25 MMOL/L (21-32); CHLORIDE 109 MMOL/L (98-107); CREATININE SERUM 0.88 MG/DL (0.60-1.30); GFR ESTIMATED > 60; GLUCOSE 98 MG/DL (70-105); MAGNESIUM 1.9 MG/DL (1.6-2.4); SODIUM 142 MMOL/L (135-145); TOTAL PROTEIN 6.8 GM/DL (6.4-8.2)
--- NOTE | 2019-09-03 16:57 | Diagnostic Imaging Report ---
Indication: Chest pain PA and lateral chest Heart size and pulmonary vascularity are normal. Lungs are clear. There are no effusions or pneumothoraces. IMPRESSION: Negative chest Dictated by: Dictated on workstation # [id number]
[2019-09-03] MEDS ORDERED: IBUP-1780 PO (17:09)
[2019-09-03 17:17] VITALS: BP 121/83
== END 2019-09-03 17:17 | disposition home or self-care (01) ==
LOC: EDUNIT# 16:22 → ER 16:23
DX: I31.9 Disease of pericardium, unspecified (principal); F17.210 Nicotine dependence, cigarettes, uncomplicated
CPT/HCPCS: 36415; 71046; 80053; 83735; 84484; 85025; 85652; 86141; 93005; 93041

== ENCOUNTER 2019-11-21 13:21 | Emergency (ER) | payer SELFPAY ==
[~2019-11-21] VITALS: Ht 190 cm; Wt 94.8 kg
[~2019-11-21 13:21] MED LIST changes: +IBUP-1780 PO
[2019-11-21 13:33] VITALS: BP 154/88
[2019-11-21] MEDS ORDERED: PRD20T PO (13:38)
[2019-11-21] MEDS ORDERED: HYDR-3870 PO (13:38)
[2019-11-21] MEDS ORDERED: METH-313 PO (13:38)
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
== END 2019-11-21 13:44 | disposition home or self-care (01) ==
LOC: EDUNIT# 13:21 → ER 13:22
DX: M54.16 Radiculopathy, lumbar region (principal); V49.40XA Driver injured in collision with unspecified motor vehicles in traffic accident, initial encounter
CPT/HCPCS: 99281

== ENCOUNTER 2020-02-16 18:06 | Emergency (ER) | payer SELFPAY ==
[~2020-02-16] VITALS: Ht 182 cm; Wt 81.6 kg
[~2020-02-16 18:06] MED LIST changes: +HYDR-3870 PO; +METH-313 PO; +PRD20T PO
--- OUTSIDE RECORDS SUMMARY | 2020-02-16 18:29 | XMS REPORT | Clinical Summary ---
Author Author [facility] Organization [facility] Address Unknown Phone Unavailable Care Team Providers Care Hog Buyer Name Role Phone Dominguez Castro MD Unavailable Zunilda Jackson RN Unavailable Unavailable Stacia Grey MD PCP Mary Calixto RN Unavailable Unavailable Azucena Pantoja RN Unavailable Unavailable Emani Cheema RN Unavailable Unavailable Source Comments Some departments are not documenting in the electronic medical record. If you d o not see the information that you expected, contact Release of Information in [facility] Information Management department at [phone] for further assistan ce in locating additional records.[facility] Allergies No Known Allergies Medications No known medications Active Problems Problem Noted Date Flexion contracture of joint of hand 08/29/2014 Social History Date Tobacco Use Types Packs/Day Years Used Current Every Day Smoker Cigarettes 0.5 Smokeless Tobacco: Never Used Tobacco Cessation: Counseling Given: Yes Drinks/Week oz/Week Comments Alcohol Use 5 Cans of beer 5.0 Yes Sex Assigned at Date Recorded Not [...] Health Maintenance Due Date Last Done Comments HIV SCREENING 2000 DTAP/TDAP VACCINES (1 - 2003 Tdap) HEPATITIS C SCREENING 2003 PHYSICAL (COMPREHENSIVE) 2003 EXAM INFLUENZA VACCINE 04/13/2020 Results Not on filefrom Last 3 Months Insurance Type Payer Benefit Subscriber ID Effective Phone Address Plan / Dates Group Medicaid UHC [place]ICAID [place] UHC xxxxxxxxxxx 2014- COMMUNITY Present PLAN [place] [address] (Home) [place] [id number] Advance Directives Patient Vc++ Developer Explanation Type Date Recorded Advance 12/08/2014 11:32 AM Directive/DPOA
--- OUTSIDE RECORDS SUMMARY | 2020-02-16 18:30 | XMS REPORT ---
Author Author Juan Pop Organization [facility] Address [address] [place] [address] Care Team Providers Care Charger Tester Name Role Phone LEELA Pop Unavailable PROBLEMS Type Condition ICD9-CM Code [id number] Code Onset Dates Condition S tatus SNOMED Code Problem Unspecified conjunctivitis 372.30 Act oneil 2120203 Problem Other chronic pain G89.29 Active 8 4165663 Problem Screening examination for venereal disease V74.5 Active 814007162 Problem Crushing injury of hand(s) 927.20 Act oneil [id number] ALLERGIES No Information ENCOUNTERS Encounter Location Date Diagnosis [facility] [address] [phone] November, Acute nasopharyngitis J00 [facility] [address] [place] [phone] November, Low back pain M54.5 and Othe r chronic pain G89.29 [facility] [address] [phone] Jul, Injury of left hip, initial encounter S79.912A [facility] [address] [place] [phone] November, Gastroenteritis and colitis, viral A08.4 [facility] [address] [place] [phone] November, Cellulitis of right upper ex tremity L03.113 [facility] [address] [place], [place] [id number] [place] [phone] May, Pharyngitis due to other org anism J02.8 [facility] [address] [place] [phone] 29 Dec, 2014 Dental examination V72.2 [facility] [address] [id number] [address] [place] [phone] 14 Oct, 2014 [facility] [address] [id number] [address] [place] [phone] 13 Oct, 2014 [facility] [address] [id number] [address] [place] [phone] 18 Apr, 2013 [facility] [address] [id number] [address] [place] [phone] Apr, [facility] [address] [id number] [address] [place] [phone] Apr, [facility] [address] [id number] [address] [place] [phone] Apr, [facility] [address] [id number] [address] [place] [phone] Mar, [facility] [address] [id number] [address] [place] [phone] Mar, [facility] [address] [id number] [address] [place] [phone] Mar, [facility] [address] [id number] [address] [place] [phone] Apr, [facility] [address] [id number] [address] [place] [phone] Apr, IMMUNIZATIONS No Known Immunizations SOCIAL HISTORY Never Assessed REASON FOR VISIT PLAN OF CARE VITAL SIGNS Height 75 in 2013-03-22 Weight 191.07 lbs 2013-03-22 Temperature 97.9 degrees Fahrenheit 2013-03-22 Heart Rate 76 bpm 2013-03-22 Respiratory Rate 20 2013-03-22 Blood pressure systolic 122 mmHg 2013-03-22 Blood pressure diastolic 88 mmHg 2013-03-22 MEDICATIONS No Known Medications RESULTS No Results PROCEDURES Procedure Date Ordered Result Body Site CHYLMD TRACH, DNA, AMP PROBE Mar 22, 2013 HIV-1/HIV-2, SINGLE ASSAY Mar 22, 2013 BLOOD SEROLOGY, QUALITATIVE Mar 22, 2013 VENIPUNCT, ROUTINE* Mar 22, 2013 INSTRUCTIONS MEDICATIONS ADMINISTERED No Known Medications
--- OUTSIDE RECORDS SUMMARY | 2020-02-16 18:30 | XMS REPORT ---
Author Author Juan Bustamante Doctor Organization [facility] Address Unknown Phone Unavailable Care Team Providers Care Fuel Technician Name Role Phone Migration, Doctor Unavailable Unavailable PROBLEMS Type Condition ICD9-CM Code [id number] Code Onset Dates Condition S tatus SNOMED Code Problem Unspecified conjunctivitis 372.30 Act oneil 3494477 Problem Other chronic pain G89.29 Active 8 9314827 Problem Screening examination for venereal disease V74.5 Active 324351004 Problem Crushing injury of hand(s) 927.20 Act oneil [id number] ALLERGIES No Information ENCOUNTERS Encounter Location Date Diagnosis [facility] [address] [address] November, Acute nasopharyngitis J00 [facility] [address] [address] November, Low back pain M54.5 and Othe r chronic pain G89.29 [facility] [address] [phone] Jul, Injury of left hip, initial encounter S79.912A [facility] [address] [place] [phone] November, Gastroenteritis and colitis, viral A08.4 [facility] [address] [id number] [address] [place] [phone] November, Cellulitis of right upper ex tremity L03.113 [facility] [address] [id number] [address] [place] [phone] May, Pharyngitis due to other org anism J02.8 [facility] [address] [id number] [address] [place] [phone] Dec, Dental examination V72.2 [facility] [address] [id number] [address] [place] [phone] 14 Oct, 2014 [facility] [address] [id number] [address] [place] [phone] 13 Oct, 2014 [facility] [address] [id number] [address] [place] [phone] 18 Apr, 2013 [facility] [address] [id number] [address] [place] [phone] 18 Apr, 2013 [facility] [address] [id number] [address] [place] [phone] Apr, [facility] [address] [id number] [address] [place] [phone] Apr, [facility] [address] [id number] [address] [place] [phone] 27 Mar, 2013 [facility] [address] [id number] [address] [place] [phone] Mar, [facility] [address] [id number] [address] [place] [phone] 09 Mar, 2013 [facility] [address] [id number] [address] [place] [phone] 27 Apr, 2012 [facility] [address] [id number] [address] [place] [phone] Apr, IMMUNIZATIONS No Known Immunizations SOCIAL HISTORY Never Assessed REASON FOR VISIT PLAN OF CARE VITAL SIGNS Height 75 in 2013-04-28 Weight 189.4 lbs 2013-04-28 Temperature 98.3 degrees Fahrenheit 2013-04-28 Heart Rate 68 bpm 2013-04-28 Respiratory Rate 16 2013-04-28 Blood pressure systolic 136 mmHg 2013-04-28 Blood pressure diastolic 64 mmHg 2013-04-28 MEDICATIONS No Known Medications RESULTS No Results PROCEDURES Procedure Date Ordered Result Body Site CT UPPER EXTREMITY W/DYE Apr 28, 2013 INSTRUCTIONS MEDICATIONS ADMINISTERED No Known Medications
--- OUTSIDE RECORDS SUMMARY | 2020-02-16 18:30 | XMS REPORT ---
Author Author Juan Bustamante Doctor Organization [facility] Address Unknown Phone Unavailable Care Team Providers Care Hat Former Name Role Phone Migration, Doctor Unavailable Unavailable PROBLEMS Type Condition ICD9-CM Code [id number] Code Onset Dates Condition S tatus SNOMED Code Problem Unspecified conjunctivitis 372.30 Act oneil 1900680 Problem Other chronic pain G89.29 Active 8 4213488 Problem Screening examination for venereal disease V74.5 Active 336735999 Problem Crushing injury of hand(s) 927.20 Act oneil [id number] ALLERGIES No Information ENCOUNTERS Encounter Location Date Diagnosis [facility] [address] [address] November, Acute nasopharyngitis J00 [facility] [address] [address] November, Low back pain M54.5 and Othe r chronic pain G89.29 [facility] [address] [address] Jul, Injury of left hip, initial encounter S79.912A [facility] [address] [place] [phone] November, Gastroenteritis and colitis, viral A08.4 [facility] [address] [id number] [address] [place] [phone] November, Cellulitis of right upper ex tremity L03.113 [facility] [address] [id number] [address] [place] [phone] May, Pharyngitis due to other org anism J02.8 [facility] [address] [id number] [address] [place] [phone] Dec, Dental examination V72.2 [facility] [address] [id number] [address] [place] [phone] 14 Oct, 2014 [facility] [address] [id number] [address] [place] [phone] Oct, [facility] [address] [id number] [address] [place] [phone] 18 Apr, 2013 [facility] [address] [id number] [address] [place] [phone] Apr, [facility] [address] [id number] [address] [place] [phone] Apr, [facility] [address] [id number] [address] [place] [phone] Apr, [facility] [address] [id number] [address] [place] [phone] Mar, [facility] [address] [id number] [address] [place] [phone] Mar, [facility] [address] [id number] [address] [place] [phone] Mar, [facility] [address] [id number] [address] [place] [phone] Apr, [facility] [address] [id number] [address] [place] [phone] Apr, IMMUNIZATIONS No Known Immunizations SOCIAL HISTORY Never Assessed REASON FOR VISIT PLAN OF CARE VITAL SIGNS MEDICATIONS No Known Medications RESULTS No Results PROCEDURES No Known procedures INSTRUCTIONS MEDICATIONS ADMINISTERED No Known Medications
--- OUTSIDE RECORDS SUMMARY | 2020-02-16 18:30 | XMS REPORT ---
Author Author Juan Pop Organization [facility] Address [address] [place] [address] Care Team Providers Care Deputy Director Of Public Works Name Role Phone LEELA Pop Unavailable PROBLEMS Type Condition ICD9-CM Code [id number] Code Onset Dates Condition S tatus SNOMED Code Problem Unspecified conjunctivitis 372.30 Act oneil 5208602 Problem Other chronic pain G89.29 Active 8 6942015 Problem Screening examination for venereal disease V74.5 Active 734823393 Problem Crushing injury of hand(s) 927.20 Act oneil [id number] ALLERGIES No Information ENCOUNTERS Encounter Location Date Diagnosis [facility] [address] [phone] November, Acute nasopharyngitis J00 [facility] [address] [place] [phone] November, Low back pain M54.5 and Othe r chronic pain G89.29 [facility] [address] [phone] Jul, Injury of left hip, initial encounter S79.912A [facility] [address] [place] [phone] November, Gastroenteritis and colitis, viral A08.4 [facility] [address] [place] [phone] November, Cellulitis of right upper ex tremity L03.113 [facility] [address] [place], [place] [id number] [place] [phone] May, Pharyngitis due to other org anism J02.8 [facility] [id number] [place] [id number] 29 Dec, 2014 Dental examination V72.2 [facility] [address] [id number] [address] [place] [phone] 14 Oct, 2014 [facility] [address] [id number] [address] [place] [phone] 13 Oct, 2014 [facility] [address] [id number] [address] [place] [id number] 18 Apr, 2013 [facility] [address] [id number] [address] [place] [phone] Apr, [facility] [address] [id number] [address] [place] [phone] Apr, [facility] [address] [id number] [address] [place] [phone] Apr, [facility] [address] [id number] [address] [place] [phone] Mar, [facility] [address] [id number] [address] [place] [phone] Mar, [facility] [address] [id number] [address] [place] [phone] 09 Mar, 2013 [facility] [address] [id number] [address] [place] [phone] Apr, [facility] [address] [id number] [address] [place] [phone] Apr, IMMUNIZATIONS No Known Immunizations SOCIAL HISTORY Never Assessed REASON FOR VISIT PLAN OF CARE VITAL SIGNS MEDICATIONS No Known Medications RESULTS No Results PROCEDURES No Known procedures INSTRUCTIONS MEDICATIONS ADMINISTERED No Known Medications
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
[2020-02-16] MEDS ORDERED: ASPIRIN 81 MG CHEW (CHILDREN'S ASA) PO ONE (18:45)
[2020-02-16] MEDS ORDERED: KETOROLAC 30 MG/ML VIAL IVP STA (18:48)
[2020-02-16] MEDS ORDERED: NS IV 1000 ML 1,000 ML IV STA (18:48)
--- NOTE | 2020-02-16 18:55 | ED Chest Pain ---
General Chief Complaint: Respiratory Problems Stated Complaint: SOB Source: patient Exam Limitations: no limitations History of Present Illness Date Seen by Provider: Feb 16, 2020 Time Seen by Provider: 18:38 Initial Comments Here with report of shortness of breath and chest and back pain as well as upper body pain since been going on since last approximate 6 days ago. Notes that he's had change in that over time but has had increasing shortness of air. He tried to work through it. 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 States that he has aches in his chest and back like he got hit by a linebacker. Has had some cough. Denies fevers. Reports eating and drinking okay and no difficulties with going to the bathroom. Timing/Duration: 6-7 days Severity/Quality: moderate, aching Location: central, shoulder, back Radiation: no radiation Activities at Onset: none Prior CP/Workup: other (Pericarditis) Modifying Factors: improves with coughing ASA po CASHIER SUPERVISOR: No NTG SL CASHIER SUPERVISOR: No Associated Symptoms: No abdominal pain, No back pain, No dizziness, No fever/chills, No nausea/vomiting; shortness of breath, weakness Allergies and Home Medications Allergies Coded Allergies: No Known Drug Allergies (Unverified , 05/31/15) Home Medications Hydrocodone/Acetaminophen 1 Each Tablet, 1 EACH PO Q4-6HR PRN for PAIN-MODERATE Prescribed by: MITRA MACHADO on 11/21/19 1339 Ibuprofen 800 Mg Tablet, 800 MG PO Q8H PRN for PAIN-MILD Prescribed by: MITRA MACHADO on 09/03/19 1709 Methocarbamol 750 Mg Tablet, 750 MG PO Q6H PRN for PAIN-MODERATE (5-7) Prescribed by: MITRA MACHADO on 11/21/19 1338 Prednisone 20 Mg Tab, 40 MG PO DAILY Prescribed by: MITRA MACHADO on 11/21/19 1338 Patient Home Medication List Home Medication List Reviewed: Yes Review of Systems Review of Systems Constitutional: see HPI; No chills, No fever EENTM: No Symptoms Reported Respiratory: Cough, Shortness of Air Cardiovascular: Chest Pain; Denies Edema Gastrointestinal: Denies Abdominal Pain Genitourinary: No Symptoms Reported Musculoskeletal: back pain, muscle pain Skin: No change in color, No lesions Psychiatric/Neurological: No Symptoms Reported All Other Systems Reviewed Negative Unless Noted: Yes Past Yejylhl-Dwkxsb-Avaisa Hx Past Med/Social Hx: Reviewed Nursing Past Med/Soc Hx Patient Social History Alcohol Use: Occasionally Uses Alcohol Beverage of Choice: Beer Recreational Drug Use: No Smoking Status: Current Everyday Smoker Type Used: Cigarettes 2nd Hand Smoke Exposure: No Recent Hopitalizations: No Immunizations Up To Date Tetanus Booster (TDap): Unknown Seasonal Allergies Seasonal Allergies: No Past Medical History Surgeries: Yes (LEFT HAND/FINGER STAPH INF SURGERY) Orthopedic Respiratory: No Cardiac: No Neurological: Yes Headaches /Migraines Genitourinary: No Gastrointestinal: No Musculoskeletal: No Endocrine: No HEENT: No Cancer: No Psychosocial: No Integumentary: Yes (STAPH INFECTION) Blood Disorders: No Family Medical History Reviewed Nursing Family Hx No Pertinent Family Hx Physical Exam Vital Signs Vital Signs - First Documented 02/16/20 02/16/20 19:00 19:42 Temp 36.7 Pulse 77 Resp 16 B/P (MAP) 122/83 (96) Pulse Ox 100 O2 Delivery Room Air Capillary Refill : Height, Weight, BMI Height: 6'3.00" Weight: 220lbs. oz. 99.265227gl; 26.00 BMI Method:Stated General Appearance: No Apparent Distress, WD/WN HEENT: PERRL/EOMI, Pharynx Normal Neck: Non Tender, Supple Respiratory: Lungs Clear, Normal Breath Sounds Cardiovascular: Regular Rate, Rhythm, No Murmur Gastrointestinal: Non Tender, Soft Extremity: Normal Range of Motion, Non Tender Neurologic/Psychiatric: Alert, Oriented x3 Skin: Normal Color, Warm/Dry Progress/Results/Core Measures Results/Orders Lab Results Laboratory Tests Test 02/16/20 18:30 Range/Units White Blood Count 5.7 4.3-11.0 10^3/uL Red Blood Count 5.22 4.35-5.85 10^6/uL Hemoglobin 14.7 13.3-17.7 G/DL Hematocrit 44 40-54 % Mean Corpuscular Volume 84 80-99 FL Mean Corpuscular Hemoglobin 28 25-34 PG Mean Corpuscular Hemoglobin Concent 33 32-36 G/DL Red Cell Distribution Width 14.4 10.0-14.5 % Platelet Count 334 130-400 10^3/uL Mean Platelet Volume 9.4 7.4-10.4 FL Neutrophils (%) (Auto) 30 L 42-75 % Lymphocytes (%) (Auto) 52 H 12-44 % Monocytes (%) (Auto) 10 0-12 % Eosinophils (%) (Auto) 7 0-10 % Basophils (%) (Auto) 1 0-10 % Neutrophils # (Auto) 1.7 L 1.8-7.8 X 10^3 Lymphocytes # (Auto) 3.0 1.0-4.0 X 10^3 Monocytes # (Auto) 0.6 0.0-1.0 X 10^3 Eosinophils # (Auto) 0.4 H 0.0-0.3 10^3/uL Basophils # (Auto) 0.0 0.0-0.1 10^3/uL Erythrocyte Sedimentation Rate 1 0-15 MM/HR Prothrombin Time 12.8 12.2-14.7 SEC INR Comment 0.9 0.8-1.4 Activated Partial Thromboplast Time 31 24-35 SEC D-Dimer < 0.27 0.00-0.49 UG/ML Sodium Level 140 135-145 MMOL/L Potassium Level 3.8 3.6-5.0 MMOL/L Chloride Level 106 98-107 MMOL/L Carbon Dioxide Level 21 21-32 MMOL/L Anion Gap 13 5-14 MMOL/L Blood Urea Nitrogen 6 L 7-18 MG/DL Creatinine 1.06 0.60-1.30 MG/DL Estimat Glomerular Filtration Rate > 60 BUN/Creatinine Ratio 6 Glucose Level 96 70-105 MG/DL Calcium Level 8.9 8.5-10.1 MG/DL Corrected Calcium 8.8 8.5-10.1 MG/DL Magnesium Level 2.0 1.6-2.4 MG/DL Total Bilirubin 0.4 0.1-1.0 MG/DL Aspartate Amino Transf (AST/SGOT) 22 5-34 U/L Alanine Aminotransferase (ALT/SGPT) 27 0-55 U/L Alkaline Phosphatase 61 40-136 U/L Lactate Dehydrogenase 174 125-220 U/L Myoglobin 66.6 10.0-92.0 NG/ML Troponin I < 0.028 <0.028 NG/ML C-Reactive Protein High Sensitivity 0.05 0.00-0.50 MG/DL Total Protein 6.9 6.4-8.2 GM/DL Albumin 4.1 3.2-4.5 GM/DL Procalcitonin 0.02 <0.10 NG/ML My Orders Orders - REGINA SABILLON MD Cbc With Automated Diff (02/16/20 18:37) Magnesium (02/16/20 18:37) Chest 1 View, Ap/Pa Only (02/16/20 18:37) Ekg Tracing (02/16/20 18:37) Comprehensive Metabolic Panel (02/16/20 18:37) Myoglobin Serum (02/16/20 18:37) Protime With Inr (02/16/20 18:37) Partial Thromboplastin Time (02/16/20 18:37) O2 (02/16/20 18:37) Monitor-Rhythm Ecg Trace Only (02/16/20 18:37) Lipid Panel (02/17/20 06:00) Ed Iv/Invasive Line Start (02/16/20 18:37) Fibrin Degradation Products (02/16/20 18:37) Troponin I (02/16/20 18:37) Aspirin Chewable Tablet (Baby Aspirin Ch (02/16/20 18:45) Procalcitonin (Pct) (02/16/20 18:37) Hs C Reactive Protein (02/16/20 18:37) Erythrocyte Sedimentation Rate (02/16/20 18:37) LDH (02/16/20 18:37) Coronavirus Sars-Cov-2 So 2018 (02/16/20 18:48) Ns Iv 1000 Ml (Sodium Chloride 0.9%) (02/16/20 18:48) Ketorolac Injection (Toradol Injection) (02/16/20 18:48) Acetaminophen Tablet (Tylenol Tablet) (02/16/20 20:02) Medications Given in ED Current Medications Medications Dose Ordered Sig/Abner Route Start Time Stop Time Status Last Admin Dose Admin Aspirin 324 mg ONCE ONCE PO 02/16/20 18:45 02/16/20 18:46 DC 02/16/20 18:45 324 MG Vital Signs/I&O 02/16/20 02/16/20 02/16/20 19:00 19:30 19:42 Temp 36.7 Pulse 77 76 85 Resp 16 16 18 B/P (MAP) 122/83 (96) 131/80 (97) 127/90 (102) Pulse Ox 100 97 98 O2 Delivery Room Air Room Air Room Air Progress Progress Note : Progress Note Seen and evaluated. Patient does have history of pericarditis with typical EKG pattern. That remains today based on EKG. Does not have a local physician. We will go ahead and check chest pain labs as well as COVID-19 evaluation given his presentation. IV, labs, EKG, chest x-ray, ASA 324 mg by mouth ordered. Normal saline 1 L bolus and Toradol 30 mg IV ordered. COVID-19 swab ordered. Monitor patient. 2016: Patient is doing better. Acetaminophen 1 g by mouth given. This did improve his situation. He would like to go home. Labs reviewed and all findings reviewed with the patient. Discharged home with return precautions. Patient verbalize understanding instructions and agreement with plan. Counseled to follow-up with primary care physician and suggested community health especially given that he has revolving questions about pericarditis. Patient indicated he would follow-up. Initial ECG Impression Date: Feb 16, 2020 Initial ECG Impression Time: 18:08 Initial ECG Rate: 84 Initial ECG Rhythm: Normal Sinus Comment Sinus rhythm with question of global mildly elevated ST segments consistent with pericarditis. This is very similar to previous EKG from 09/03/19. No evidence of ST elevation VA. Interpreted by me. Diagnostic Imaging Diagonstic Imaging: Xray Plain Films/CT/US/NM/MRI: chest Comments NAME: WILDER MONGE [facility] REC#: [id number] PT STATUS: REG ER : 1985 PHYSICIAN: REGINA SABILLON MD ADMIT DATE: 02/16/20/ER Draft Date of Exam:02/16/20 CHEST 1 VIEW, AP/PA ONLY INDICATION: Chest pain, shortness of breath. EXAMINATION: Frontal chest was obtained at 7:08 p.m. COMPARISON: 09/03/2019. FINDINGS: Heart and mediastinal silhouette are normal in appearance. The lungs appear clear. There is no pneumothorax or pleural fluid. IMPRESSION: Negative chest. Dictated on workstation # [id number] Dict: 02/16/201918 Trans: 02/16/201926 [facility] [id number] Interpreted by: MELQUIADES ELLIOTT MD Electronically signed by: Departure Impression Primary Impression: Viral syndrome Additional Impression: COVID-19 evaluation Disposition: HOME, SELF-CARE Condition: Improved Departure-Patient Inst. Decision time for Depature: 20:18 Referrals: KAYLAH COELHO MD NO,LOCAL PHYSICIAN (PCP) Primary Care Physician Add. Discharge Instructions: All discharge instructions reviewed with patient and/or family. Voiced understanding. Drink plenty of fluids and get plenty of rest. You will need to remain on quarantine until test results are noted. If they are negative, you will need to be isolated for 3 days after symptoms resolve. If they are positive, the health department will call you and direct quarantine timeframe. You may take ibuprofen 600 mg every 8 hours as needed for fever or pain. You may take Tylenol/acetam inophen 1000 mg every 8 hours as needed for fever.. Return for worse pain, fever, vomiting, weakness, breathing problems or other concerns as needed. It is very important that you follow-up with the physician of your choice or as listed for recheck and further evaluation especially to discuss concerns related to pericarditis and for general medical follow-up. You may call the [facility] and asked for establishing care appointment with whichever provider is available. REGINA SABILLON MD Feb 16, 2020 18:55
[2020-02-16 19:00] VITALS: BP 122/83
[2020-02-16 19:12] LABS: BASOPHILS % (AUTO) 1 % (0-10); EOSINOPHILS # (AUTO) 0.4 10^3/uL (0.0-0.3); EOSINOPHILS % (AUTO) 7 % (0-10); HEMATOCRIT 44 % (40-54); HEMOGLOBIN 14.7 G/DL (13.3-17.7); LYMPHOCYTES % (AUTO) 52 % (12-44); MEAN CORPUSCULAR HEMOGLOBIN 28 PG (25-34); MEAN CORPUSCULAR HGB CONC 33 G/DL (32-36); MEAN CORPUSCULAR VOLUME 84 FL (80-99); MEAN PLATELET VOLUME 9.4 FL (7.4-10.4); MONOCYTES # (AUTO) 0.6 X 10^3 (0.0-1.0); MONOCYTES % (AUTO) 10 % (0-12); NEUTROPHILS # (AUTO) 1.7 X 10^3 (1.8-7.8); NEUTROPHILS % (AUTO) 30 % (42-75); PLATELET COUNT 334 10^3/uL (130-400); RED CELL DISTRIBUTION WIDTH 14.4 % (10.0-14.5); WHITE BLOOD COUNT 5.7 10^3/uL (4.3-11.0)
[2020-02-16 19:25] LABS: INR 0.9 (0.8-1.4); PROTHROMBIN TIME PATIENT 12.8 SEC (12.2-14.7)
--- NOTE | 2020-02-16 19:28 | Diagnostic Imaging Report ---
INDICATION: Chest pain, shortness of breath. EXAMINATION: Frontal chest was obtained at 7:08 p.m. COMPARISON: 09/03/2019. FINDINGS: Heart and mediastinal silhouette are normal in appearance. The lungs appear clear. There is no pneumothorax or pleural fluid. IMPRESSION: Negative chest. Dictated by: Dictated on workstation # [id number]
[2020-02-16 19:30] VITALS: BP 131/80
[2020-02-16 19:34] LABS: ALANINE AMINOTRANSFERASE 27 U/L (0-55); ALBUMIN 4.1 GM/DL (3.2-4.5); ALKALINE PHOSPHATASE 61 U/L (40-136); BILIRUBIN,TOTAL 0.4 MG/DL (0.1-1.0); BUN/CREATININE RATIO 6; CALCIUM 8.9 MG/DL (8.5-10.1); CARBON DIOXIDE 21 MMOL/L (21-32); CREATININE SERUM 1.06 MG/DL (0.60-1.30); GFR ESTIMATED > 60; GLUCOSE 96 MG/DL (70-105); TOTAL PROTEIN 6.9 GM/DL (6.4-8.2)
[2020-02-16] MEDS ORDERED: ACETAMINOPHEN 500 MG TAB (TYLENOL) PO STA (20:02)
[2020-02-16 20:09] LABS: CHLORIDE 106 MMOL/L (98-107); POTASSIUM 3.8 MMOL/L (3.6-5.0); SODIUM 140 MMOL/L (135-145)
[2020-02-16 20:19] VITALS: BP 134/93
== END 2020-02-16 20:27 | disposition home or self-care (01) ==
LOC: EDUNIT# 18:16 → ER 18:18
DX: B34.9 Viral infection, unspecified (principal); G43.909 Migraine, unspecified, not intractable, without status migrainosus; F17.210 Nicotine dependence, cigarettes, uncomplicated; Z20.828 Contact with and (suspected) exposure to other viral communicable diseases; Z79.52 Long term (current) use of systemic steroids
CPT/HCPCS: 71045; 80053; 83615; 83735; 83874; 84145; 84484; 85025; 85379; 85610; 85652; 85730; 86141; 93041; 96361; 96374; 99284; U0002; 36415; 87635

== ENCOUNTER 2020-05-14 12:55 | Inpatient (IN) | payer SELFPAY ==
[~2020-05-14] VITALS: Ht 187 cm; Wt 92.6 kg
[2020-05-14] MEDS ORDERED: NALOXONE 2 MG/2 ML (NARCAN) SYR ONE (12:57)
--- NOTE | 2020-05-14 13:08 | ED General ---
General Stated Complaint: UNRESPONSIVE Source of Information: Patient Exam Limitations: No Limitations History of Present Illness Date Seen by Provider: May 14, 2020 Time Seen by Provider: 13:07 Initial Comments To ER with reports of being unresponsive. Was drug out of car by staff, driven to ER by girlfriend. He complained to her of some dizziness when he was walking earlier this morning apparently, she brought him to the emergency room now. He was unable to get out of the car without assistance very somnolent. Spoke with girlfriend about any possible drug ingestion and she doesn't believe he would do that. Timing/Duration: Other Severity: Moderate Associated Systoms: Denies Symptoms Allergies and Home Medications Allergies Coded Allergies: No Known Drug Allergies (Unverified , 05/31/15) Home Medications Hydrocodone/Acetaminophen 1 Each Tablet, 1 EACH PO Q4-6HR PRN for PAIN-MODERATE Prescribed by: MITRA MACHADO on 11/21/19 1339 Ibuprofen 800 Mg Tablet, 800 MG PO Q8H PRN for PAIN-MILD Prescribed by: MITRA MACHADO on 09/03/19 1709 Methocarbamol 750 Mg Tablet, 750 MG PO Q6H PRN for PAIN-MODERATE (5-7) Prescribed by: MITRA MACHADO on 11/21/19 1338 Prednisone 20 Mg Tab, 40 MG PO DAILY Prescribed by: MITRA MACHADO on 11/21/19 1338 Patient Home Medication List Home Medication List Reviewed: Yes Review of Systems Review of Systems Constitutional: see HPI, other (unable to obtain) Past Mbeizex-Bfhaob-Hzzfgo Hx Patient Social History Alcohol Beverage of Choice: Beer Type Used: Cigarettes 2nd Hand Smoke Exposure: Yes Recent Hopitalizations: No Immunizations Up To Date Tetanus Booster (TDap): Unknown Seasonal Allergies Seasonal Allergies: No Past Medical History Surgeries: Yes (LEFT HAND/FINGER STAPH INF SURGERY) Orthopedic Respiratory: No Cardiac: No Neurological: Yes Headaches /Migraines Genitourinary: No Gastrointestinal: No Musculoskeletal: No Endocrine: No HEENT: No Cancer: No Psychosocial: No Integumentary: Yes (STAPH INFECTION) Blood Disorders: No Family Medical History No Pertinent Family Hx Physical Exam Vital Signs Vital Signs - First Documented 05/14/20 14:05 Pulse 105 Resp 16 Pulse Ox 97 FiO2 45 Capillary Refill : Height, Weight, BMI Height: 6'3.00" Weight: 220lbs. oz. 99.471545py; 24.00 BMI Method:Stated General Appearance: WD/WN, Other ( GCS 7. Will intubate for airway protection) Eyes: Bilateral Eye Normal Inspection, Bilateral Eye PERRL, Bilateral Eye EOMI HEENT: TMs Normal, Other (pinpoint pupils but failed to respond to 2 mg of Narcan IV.) Neck: Full Range of Motion, Normal Inspection Respiratory: Lungs Clear, No Accessory Muscle Use, No Respiratory Distress Cardiovascular: Regular Rate, Rhythm, Normal Peripheral Pulses Gastrointestinal: Non Tender, Soft Extremity: Normal Capillary Refill, Normal Inspection Neurologic/Psychiatric: Other (arousable to painful stimuli only.) Skin: Normal Color, Warm/Dry, Other (keloids to central chest and left cheek) Comments 1327-Hemodynamically stable with a blood pressure of 117/88 heart rate of about 95, oxygen 97% on room air but respiratory rates about 10-12 and his GCS is 7 so we intubated for airway protection. No obvious sign of trauma to the head or any part of his body. Procedures/Interventions Date of ETT Placement: May 14, 2020 Time of ETT Placement: 13:25 Intubation Method: orotracheal Tube Size: 7.5 Medications: Etomidate, Rocuronium Positive End Tide CO2: Yes Breath Sounds after Intubation: bilateral-equal Intubation Complications: no complications Progress/Results/Core Measures Suspected Sepsis SIRS Temperature: Pulse: Respiratory Rate: Laboratory Tests 05/14/20 12:57: White Blood Count 7.8 Blood Pressure / Mean: Laboratory Tests 05/14/20 12:57: Creatinine 1.20, Platelet Count 341, Total Bilirubin 0.8 Results/Orders Lab Results Laboratory Tests Test 05/14/20 12:57 05/14/20 13:30 05/14/20 13:46 Range/Units White Blood Count 7.8 4.3-11.0 10^3/uL Red Blood Count 5.53 H 4.30-5.52 10^6/uL Hemoglobin 15.6 13.3-17.7 g/dL Hematocrit 48 40-54 % Mean Corpuscular Volume 87 80-99 fL Mean Corpuscular Hemoglobin 28 25-34 pg Mean Corpuscular Hemoglobin Concent 33 32-36 g/dL Red Cell Distribution Width 13.7 10.0-14.5 % Platelet Count 341 130-400 10^3/uL Mean Platelet Volume 8.7 L 9.0-12.2 fL Immature Granulocyte % (Auto) 0 % Neutrophils (%) (Auto) 60 42-75 % Lymphocytes (%) (Auto) 28 12-44 % Monocytes (%) (Auto) 10 0-12 % Eosinophils (%) (Auto) 1 0-10 % Basophils (%) (Auto) 0 0-10 % Neutrophils # (Auto) 4.7 1.8-7.8 10^3/uL Lymphocytes # (Auto) 2.2 1.0-4.0 10^3/uL Monocytes # (Auto) 0.8 0.0-1.0 10^3/uL Eosinophils # (Auto) 0.1 0.0-0.3 10^3/uL Basophils # (Auto) 0.0 0.0-0.1 10^3/uL Immature Granulocyte # (Auto) 0.0 0.0-0.1 10^3/uL Sodium Level 138 135-145 MMOL/L Potassium Level 4.7 3.6-5.0 MMOL/L Chloride Level 102 98-107 MMOL/L Carbon Dioxide Level 24 21-32 MMOL/L Anion Gap 12 5-14 MMOL/L Blood Urea Nitrogen 15 7-18 MG/DL Creatinine 1.20 0.60-1.30 MG/DL Estimat Glomerular Filtration Rate > 60 BUN/Creatinine Ratio 13 Glucose Level 80 70-105 MG/DL Calcium Level 10.0 8.5-10.1 MG/DL Corrected Calcium 8.5-10.1 MG/DL Total Bilirubin 0.8 0.1-1.0 MG/DL Aspartate Amino Transf (AST/SGOT) 31 5-34 U/L Alanine Aminotransferase (ALT/SGPT) 34 0-55 U/L Alkaline Phosphatase 69 40-136 U/L Total Protein 8.3 H 6.4-8.2 GM/DL Albumin 4.7 H 3.2-4.5 GM/DL Salicylates Level < 5.0 L 5.0-20.0 MG/DL Acetaminophen Level < 10 L 10-30 UG/ML Serum Alcohol < 10 <10 MG/DL Urine Color YELLOW Urine Clarity CLEAR Urine pH 5.5 5-9 Urine Specific [place] >=1.030 1.016-1.022 Urine Protein TRACE H NEGATIVE Urine Glucose (UA) NEGATIVE NEGATIVE Urine Ketones TRACE H NEGATIVE Urine Nitrite NEGATIVE NEGATIVE Urine Bilirubin NEGATIVE NEGATIVE Urine Urobilinogen 0.2 < = 1.0 MG/DL Urine Leukocyte Esterase NEGATIVE NEGATIVE Urine RBC (Auto) NEGATIVE NEGATIVE Urine RBC RARE /HPF Urine WBC RARE /HPF Urine Crystals NONE /LPF Urine Bacteria NEGATIVE /HPF Urine Casts NONE /LPF Urine Mucus SMALL H /LPF Urine Other LG SPERM H /HPF Urine Culture Indicated NO Urine Opiates Screen NEGATIVE NEGATIVE Urine Oxycodone Screen NEGATIVE NEGATIVE Urine Methadone Screen NEGATIVE NEGATIVE Urine Propoxyphene Screen NEGATIVE NEGATIVE Urine Barbiturates Screen NEGATIVE NEGATIVE Ur Tricyclic Antidepressants Screen NEGATIVE NEGATIVE Urine Phencyclidine Screen NEGATIVE NEGATIVE Urine Amphetamines Screen POSITIVE H NEGATIVE Urine Methamphetamines Screen POSITIVE H NEGATIVE Urine Benzodiazepines Screen POSITIVE H NEGATIVE Urine Cocaine Screen NEGATIVE NEGATIVE Urine Cannabinoids Screen POSITIVE H NEGATIVE Coronavirus 2019 (OBED) Negative Negative Glucometer 110 70-110 MG/DL My Orders Orders - MITRA MACHADO [employer] Cbc With Automated Diff (05/14/20 13:03) Comprehensive Metabolic Panel (05/14/20 13:03) Salicylate (05/14/20 13:03) Acetaminophen (05/14/20 13:03) Alcohol (05/14/20 13:03) Ua Culture If Indicated (05/14/20 13:03) Drug Screen Stat (Urine) (05/14/20 13:03) Ct Head Wo (05/14/20 13:03) Chest 1 View, Ap/Pa Only (05/14/20 13:03) Ed Iv/Invasive Line Start (05/14/20 13:03) Naloxone Injection (Narcan Injection) (05/14/20 13:15) Ns Iv 1000 Ml (Sodium Chloride 0.9%) (05/14/20 13:15) Propofol Injection (Diprivan Injection) (05/14/20 13:20) Propofol Drip (Icu) (Diprivan Drip (Icu) (05/14/20 13:20) Covid 19 Inhouse Test (05/14/20 13:28) Ns Iv 1000 Ml (Sodium Chloride 0.9%) (05/14/20 13:30) Propofol Injection (Diprivan Injection) (05/14/20 13:30) Metoprolol Tartrate Injection (Lopressor (05/14/20 14:30) Medications Given in ED Current Medications Medications Dose Ordered Sig/Abner Route Start Time Stop Time Status Last Admin Dose Admin Naloxone HCl 2 mg ONCE ONCE IV 05/14/20 13:15 05/14/20 13:16 DC 05/14/20 13:00 2 MG Vital Signs/I&O 05/14/20 14:05 Pulse 105 Resp 16 Pulse Ox 97 FiO2 45 Capillary Refill : Diagnostic Imaging Diagonstic Imaging: CT Comments NAME: WILDER MONGE [facility] REC#: [id number] PT STATUS: REG ER : 1985 PHYSICIAN: MITRA MACHADO APRN ADMIT DATE: 05/14/20/ER Draft Date of Exam:05/14/20 CHEST 1 VIEW, AP/PA ONLY INDICATION: Unresponsive. Comparison with 02/15/2010. FINDINGS: ET tube is in good position. The lungs are well-aerated and clear. Heart is not enlarged. No pulmonary edema or hilar adenopathy. No pneumothorax or pleural effusion. No bony abnormalities. IMPRESSION: Negative portable chest. Dictated on workstation # [id number] Dict: 05/14/20 1353 Trans: 05/14/20 1355 CVB [id number] Interpreted by: ETHAN MARIE MD Electronically signed by: Departure Communication (Admissions) Family Conversation Dr. Ag, we will admit the patient, went to the parking lot to update the girlfriend but she wasn't able to be found. NAME: WILDER MONGE [facility] REC#: [id number] PT STATUS: REG ER : 1985 PHYSICIAN: MITRA MACHADO APRN ADMIT DATE: 05/14/20/ER Draft Date of Exam:05/14/20 CT HEAD WO PROCEDURE: CT head without contrast. TECHNIQUE: Multiple contiguous axial images were obtained through the brain without the use of intravenous contrast. Auto Exposure Controls were utilized during the CT exam to meet ALARA standards for radiation dose reduction. INDICATION: Unresponsive. Comparison with 03/15/2019 CT head. FINDINGS: There is no intracranial hemorrhage. Ventricles and cortical gyral pattern are normal. There is no mass effect. There is no extra-axial fluid collection. Basal cisterns are clear. CP angles are normal. Mastoid air cells are well-aerated. The paranasal sinuses are well-aerated with mucosal edema in the ethmoid and left frontal sinus. No calvarial fracture. IMPRESSION: 1. No acute intracranial abnormalities. 2. Findings consistent with inflammatory changes of the ethmoid and frontal sinuses. Dictated on workstation # [id number] Dict: 05/14/20 1346 Trans: 05/14/20 1402 CV [id number] Interpreted by: ETHAN MARIE MD Electronically signed by: Impression Primary Impression: Benzodiazepine overdose Qualified Codes: T42.4X4A - Poisoning by benzodiazepines, undetermined, initial encounter Disposition: ADMITTED INPATIENT Condition: Stable Admissions Decision to Admit Reason: Admit from ER (General) Decision to Admit/Date: May 14, 2020 Time/Decision to Admit Time: 14:07 Departure-Patient Inst. Referrals: NO,LOCAL PHYSICIAN (PCP/Family) Primary Care Physician MITRA MACHADO APRN May 14, 2020 13:08
[2020-05-14 13:11] LABS: BASOPHILS % (AUTO) 0 % (0-10); EOSINOPHILS # (AUTO) 0.1 10^3/uL (0.0-0.3); EOSINOPHILS % (AUTO) 1 % (0-10); HEMATOCRIT 48 % (40-54); HEMOGLOBIN 15.6 g/dL (13.3-17.7); LYMPHOCYTES # (AUTO) 2.2 10^3/uL (1.0-4.0); LYMPHOCYTES % (AUTO) 28 % (12-44); MEAN CORPUSCULAR HEMOGLOBIN 28 pg (25-34); MEAN CORPUSCULAR HGB CONC 33 g/dL (32-36); MEAN CORPUSCULAR VOLUME 87 fL (80-99); MEAN PLATELET VOLUME 8.7 fL (9.0-12.2); MONOCYTES # (AUTO) 0.8 10^3/uL (0.0-1.0); MONOCYTES % (AUTO) 10 % (0-12); NEUTROPHILS # (AUTO) 4.7 10^3/uL (1.8-7.8); NEUTROPHILS % (AUTO) 60 % (42-75); PLATELET COUNT 341 10^3/uL (130-400); WHITE BLOOD COUNT 7.8 10^3/uL (4.3-11.0)
[2020-05-14] MEDS ORDERED: NALOXONE 2 MG/2 ML (NARCAN) SYR IV ONE (13:15)
[2020-05-14] MEDS ORDERED: NS IV 1000 ML 1,000 ML IV SCH ×2 (13:15→13:30)
--- NOTE | 2020-05-14 13:17 | NUR ---
PT BEING VENTILATED BY AMBU BAG . 1320 20 ETOMIDATE AND 50 OF ROCC GIVEN FOR INTUBATION PER MITRA MACHADO 1321 PT SUCTION AND AIRWAY VISUALIZED. 1322 50 MORE OF ROCC GIVEN 1323 PT INTUBATED WITH 7.5 ET TUBE AT 22 AT THE TEETH PLACMENT GAVI. WITH CO2 DECT. COLOR CHANGE NOTED. 1325 16 FR URINARY CATH PLACED. WITH 250 OF URINE RETURNED. SPECIMAN SENT TO LAB. [address] FOR SCAN.
[2020-05-14] MEDS ORDERED: proPOfol 200 MG/20 ML (DIPRIVAN) VIAL IV ONE (13:20)
[2020-05-14] MEDS ORDERED: PROPOFOL DRIP (ICU) 100 ML IV ONE (13:20)
[2020-05-14] MEDS ORDERED: PROPOFOL INJECTION 50 ML IV SCH (13:30)
[2020-05-14 13:38] LABS: BILIRUBIN,URINE NEGATIVE (NEGATIVE); CLARITY,URINE CLEAR; COLOR,URINE YELLOW; GLUCOSE, URINE (UA) NEGATIVE (NEGATIVE); KETONES,URINE TRACE (NEGATIVE); LEUKOCYTE ESTERASE ,URINE NEGATIVE (NEGATIVE); NITRITE,URINE NEGATIVE (NEGATIVE); PH,URINE 5.5 (5-9); PROTEIN,URINE TRACE (NEGATIVE)
[2020-05-14 13:38] LABS: BUN/CREATININE RATIO 13; CARBON DIOXIDE 24 MMOL/L (21-32); CHLORIDE 102 MMOL/L (98-107); POTASSIUM 4.7 MMOL/L (3.6-5.0); SODIUM 138 MMOL/L (135-145)
[2020-05-14 13:39] LABS: ALANINE AMINOTRANSFERASE 34 U/L (0-55); ALBUMIN 4.7 GM/DL (3.2-4.5); ALKALINE PHOSPHATASE 69 U/L (40-136); BILIRUBIN,TOTAL 0.8 MG/DL (0.1-1.0); GFR ESTIMATED > 60; GLUCOSE 80 MG/DL (70-105); SALICYLATE < 5.0 MG/DL (5.0-20.0); TOTAL PROTEIN 8.3 GM/DL (6.4-8.2)
[2020-05-14 13:49] LABS: ACETAMINOPHEN < 10 UG/ML (10-30)
[2020-05-14 13:54] LABS: BACTERIA,URINE NEGATIVE /HPF; RBC,URINE RARE /HPF; URINE OTHER LG SPERM /HPF; WBC,URINE RARE /HPF
--- NOTE | 2020-05-14 13:55 | Diagnostic Imaging Report ---
INDICATION: Unresponsive. Comparison with 02/15/2010. FINDINGS: ET tube is in good position. The lungs are well-aerated and clear. Heart is not enlarged. No pulmonary edema or hilar adenopathy. No pneumothorax or pleural effusion. No bony abnormalities. IMPRESSION: Negative portable chest. Dictated by: Dictated on workstation # [id number]
[2020-05-14 14:03] LABS: AMPHETAMINE SCREEN, URINE POSITIVE (NEGATIVE); BARBITURATE SCREEN URINE NEGATIVE (NEGATIVE); BENZODIAZEPINES SCREEN URINE POSITIVE (NEGATIVE); CANNABINOID SCREEN, URINE POSITIVE (NEGATIVE); COCAINE SCREEN URINE NEGATIVE (NEGATIVE); METHADONE STAT NEGATIVE (NEGATIVE); METHAMPHETAMINE SCREEN URINE S POSITIVE (NEGATIVE); OPIATE SCREEN URINE NEGATIVE (NEGATIVE); OXYCODONE STAT NEGATIVE (NEGATIVE); PROPOXYPHENE STAT NEGATIVE (NEGATIVE); TRICYCLIC ANTIDEPRESSANTS SCRE NEGATIVE (NEGATIVE)
--- NOTE | 2020-05-14 14:03 | Diagnostic Imaging Report ---
PROCEDURE: CT head without contrast. TECHNIQUE: Multiple contiguous axial images were obtained through the brain without the use of intravenous contrast. Auto Exposure Controls were utilized during the CT exam to meet ALARA standards for radiation dose reduction. INDICATION: Unresponsive. Comparison with 03/15/2019 CT head. FINDINGS: There is no intracranial hemorrhage. Ventricles and cortical gyral pattern are normal. There is no mass effect. There is no extra-axial fluid collection. Basal cisterns are clear. CP angles are normal. Mastoid air cells are well-aerated. The paranasal sinuses are well-aerated with mucosal edema in the ethmoid and left frontal sinus. No calvarial fracture. IMPRESSION: 1. No acute intracranial abnormalities. 2. Findings consistent with inflammatory changes of the ethmoid and frontal sinuses. Dictated by: Dictated on workstation # [id number]
[2020-05-14] MEDS ORDERED: meTOprolol 5 MG/5 ML (LOPRESSOR) VIAL IV ONE (14:30)
--- NOTE | 2020-05-14 14:30 | NUR ---
PT MOVING AROUND COUGHING, LARGE AMOUNT OF CLEAR FLUID SUCTIONED FROM MOUTH, FENTYL 100MCG GIVEN, VERSED 5MG IV GIVEN FOR SEDATION
[2020-05-14] MEDS ORDERED: MIDAZOLAM 5 MG/5 ML (VERSED) VIAL ONE ×2 (15:11→15:48)
[2020-05-14] MEDS ORDERED: MIDAZOLAM 5 MG/5 ML (VERSED) VIAL IJ ONE (15:42)
[2020-05-14] MEDS ORDERED: ROCURONIUM 50 MG/5 ML (ZEMURON) VIAL IV ONE (15:42)
[2020-05-14] MEDS ORDERED: ETOMIDATE IV SOLN 20 MG/10 ML VIAL IV ONE (15:42)
[2020-05-14] MEDS ORDERED: fentaNYL INJECTION 100 MCG/2 ML AMP IV ONE (15:42)
[2020-05-14 16:10] VITALS: BP 132/103
[2020-05-14] MEDS ORDERED: LACTATED RINGERS 1,000 ML IV ONE (16:10)
[2020-05-14] MEDS ORDERED: DexMEDEtomidine PRE MIX 100 ML IV ONE (16:16)
--- NOTE | 2020-05-14 16:20 | NUR ---
SPOKE W SIG OTHER, PT TO ICU 8 AND SHE COULD CALL LATER FOR UPDATES
--- NOTE | 2020-05-14 16:30 | History & Physical-Hospitalist ---
History of Present Illness HPI/Chief Complaint Juan Wilks Jr is a 34 year old male who presented with altered mental status. He was brought in by his girlfriend who said he had been dizzy. She denied any history of drug use. He was too altered to provide any history. Due to his decreased level of consciousness he was intubated in the ER. Upon my examination he is intubated and sedated. Source: RN/MD Exam Limitations: clinical condition Date Seen 05/14/20 Time Seen by a Provider: 16:00 Attending Physician Maria Del Carmen Ariza MD PCP No,Local Physician Referring Physician Date of Admission May 14, 2020 at 14:08 Home Medications & Allergies Home Medications Reviewed patient Home Medication Reconciliation performed by pharmacy medication reconciliations restaurant maintenance technician and/or nursing. Patients Allergies have been reviewed. Allergies Allergies Coded Allergies No Known Drug Allergies (Alxfkmexmy35/18/15) Past Ouggboq-Krcmfc-Jinjfq Hx Past Med/Social Hx: Reviewed Nursing Past Med/Soc Hx Patient Social History Alcohol Use: Denies Use Alcohol Beverage of Choice: Beer Smoking Status: Current Everyday Smoker Type Used: Cigarettes 2nd Hand Smoke Exposure: Yes Recent Foreign Travel: No Contact w/other who traveled: No Recent Hopitalizations: No Recent Infectious Disease Expo: No Immunizations Up To Date Tetanus Booster (TDap): Unknown Seasonal Allergies Seasonal Allergies: No Past Medical History Surgeries: Orthopedic Neurological: Headaches /Migraines History of Blood Disorders: No Family History No Pertinent Family Hx Review of Systems Constitutional: see HPI Physical Exam Physical Exam Vital Signs Vital Signs - First Documented 05/14/20 05/14/20 12:55 14:05 Temp 36.0 Pulse 93 Resp 10 B/P (MAP) 116/79 (91) Pulse Ox 95 FiO2 45 Capillary Refill : Less Than 3 Seconds Height, Weight, BMI Height: 6'3.00" Weight: 220lbs. oz. 99.765782fo; 27.00 BMI Method:Stated General Appearance: No Apparent Distress, WD/WN Respiratory: Lungs Clear, Normal Breath Sounds, No Respiratory Distress, Other (four horizontal scars ~4" each along mid-sternum appears to be healed reeder) Cardiovascular: Regular Rate, Rhythm, No Edema, No Murmur Gastrointestinal: Normal Bowel Sounds, Soft Extremity: Normal Inspection, No Pedal Edema Neurologic/Psychiatric: Alert, Oriented x3, No Motor/Sensory Deficits, Normal Mood/Affect Skin: Normal Color, Warm/Dry Results Results/Procedures Labs Laboratory Tests 05/14/20 12:57 Patient resulted labs reviewed. Imaging: Reviewed Imaging Report Assessment/Plan Admission Diagnosis Acute drug intoxication with complication Admission Status: Inpatient Order (span 2 midnights) Reason for Inpatient Admission: Drug overdose requiring intubation Assessment and Plan Acute drug intoxication with complication Endotracheally intubated Methamphetamine abuse Benzodiazapine abuse Cannibis abuse Acute metabolic encephalopathy CBC and CMP unremarkable CXR negative CT Head normal Urine tox positive for methamphetamines, benzodiazapines, and cannibis GCS 7 on arrival Intubated for airway protection Sedation with Propofol and Precedex LR 125 ml/hr DVT Prophylaxis: Lovenox Diagnosis/Problems Diagnosis/Problems (1) Acute drug intoxication with complication Status: Acute (2) Endotracheally intubated Status: Acute (3) Acute metabolic encephalopathy Status: Acute (4) Methamphetamine abuse Status: Acute (5) Benzodiazepine abuse Status: Acute (6) Cannabis abuse Status: Acute MARIA DEL CARMEN ARIZA MD May 14, 2020 16:30
[2020-05-14 16:40] LABS: ABG BASE EXCESS -1.9 MMOL/L (-2.5-2.5); ABG OXYGEN SATURATION 96 % (94-100); ABG PCO2 36 MMHG (35-45); ABG PO2 80 MMHG (79-93); ABG TCO2 23.6 MMOL/L (21.0-31.0)
[2020-05-14] MEDS ORDERED: fentaNYL INJECTION 100 MCG/2 ML AMP ONE (16:47)
[2020-05-14 16:54] LABS: ALLENS TEST POS
[2020-05-14 16:55] LABS: INSPIRED O2 40%; PATIENT TEMP 35.7; VENTILATOR YES
[2020-05-14] MEDS ORDERED: ENOXAPARIN 40 MG/0.4 ML (LOVENOX) SYR SC SCH (17:00)
[2020-05-14] MEDS: fentaNYL INJECTION 100 MCG/2 ML AMP IVP PRN (17:38)
[2020-05-14] MEDS: LACTATED RINGERS 1,000 ML IV SCH (17:39)
[2020-05-14] MEDS: PROPOFOL DRIP (ICU) 100 ML IV SCH ×2 (17:41→20:17)
[2020-05-14] MEDS: DexMEDEtomidine PRE MIX 100 ML IV SCH (17:42)
[2020-05-14] MEDS: inSUlin ASPART (NovoLOG) 1 UNIT/0.01 ML (CHARGE PER UNIT) SC SCH ×2 (18:21→23:34)
[2020-05-14 18:49] VITALS: BP 91/61
--- NOTE | 2020-05-14 21:21 | NUR ---
spoke with pt's s.o. password setup (May) updated on pt's condition/poc/ visitation restrictions. questions answered. s.o. phone number [phone]
[2020-05-14 22:33] VITALS: BP 89/68
--- NOTE | 2020-05-15 00:05 | NUR ---
pt fighting restraints/coughing after repositioning. sedation increased, prn pain medication given. spo2 decreased to upper 70's with good pleth. pt suctioned, fi02 increased to 100%
[2020-05-15] MEDS: fentaNYL INJECTION 100 MCG/2 ML AMP IVP PRN ×2 (00:08→08:02)
[2020-05-15] MEDS: LACTATED RINGERS 1,000 ML IV SCH ×2 (00:28→08:53)
[2020-05-15 03:09] VITALS: BP 97/57
[2020-05-15 03:18] LABS: BASOPHILS % (AUTO) 1 % (0-10); EOSINOPHILS # (AUTO) 0.2 10^3/uL (0.0-0.3); EOSINOPHILS % (AUTO) 3 % (0-10); HEMATOCRIT 42 % (40-54); HEMOGLOBIN 13.7 g/dL (13.3-17.7); LYMPHOCYTES # (AUTO) 2.7 10^3/uL (1.0-4.0); LYMPHOCYTES % (AUTO) 50 % (12-44); MEAN CORPUSCULAR HEMOGLOBIN 29 pg (25-34); MEAN CORPUSCULAR HGB CONC 33 g/dL (32-36); MEAN CORPUSCULAR VOLUME 86 fL (80-99); MONOCYTES # (AUTO) 0.4 10^3/uL (0.0-1.0); MONOCYTES % (AUTO) 8 % (0-12); NEUTROPHILS % (AUTO) 38 % (42-75); PLATELET COUNT 297 10^3/uL (130-400); WHITE BLOOD COUNT 5.3 10^3/uL (4.3-11.0)
[2020-05-15 03:31] LABS: CHLORIDE 107 MMOL/L (98-107)
[2020-05-15 03:32] LABS: POTASSIUM 4.1 MMOL/L (3.6-5.0); SODIUM 139 MMOL/L (135-145)
[2020-05-15 03:33] LABS: CALCIUM 8.6 MG/DL (8.5-10.1); GLUCOSE 93 MG/DL (70-105)
[2020-05-15 03:35] LABS: CARBON DIOXIDE 22 MMOL/L (21-32)
[2020-05-15 03:37] LABS: CREATININE SERUM 0.86 MG/DL (0.60-1.30); GFR ESTIMATED > 60; PHOSPHORUS 2.6 MG/DL (2.3-4.7)
[2020-05-15 03:37] LABS: ABG BASE EXCESS -0.1 MMOL/L (-2.5-2.5); ABG OXYGEN SATURATION 98 % (94-100); ABG PCO2 38 MMHG (35-45); ABG PH 7.42 (7.37-7.43); ABG PO2 87 MMHG (79-93); ABG TCO2 25.2 MMOL/L (21.0-31.0)
[2020-05-15 03:38] LABS: BUN/CREATININE RATIO 14
[2020-05-15 03:39] LABS: ALLENS TEST YES-POS; INSPIRED O2 35%
[2020-05-15 03:40] LABS: MAGNESIUM 2.1 MG/DL (1.6-2.4)
[2020-05-15 03:40] LABS: PATIENT TEMP 36.2; VENTILATOR YES
[2020-05-15 04:18] VITALS: BP 89/59
[2020-05-15] MEDS: PROPOFOL DRIP (ICU) 100 ML IV SCH (04:18)
--- NOTE | 2020-05-15 05:04 | Pulmonary Consultation ---
History of Present Illness History of Present Illness Time Seen by Provider: 05:00 Date of Admission Allergies and Home Medications Allergies Coded Allergies: No Known Drug Allergies (Unverified , 05/31/15) Home Medications Hydrocodone/Acetaminophen 1 Each Tablet, 1 EACH PO Q4-6HR PRN for PAIN-MODERATE Prescribed by: MITRA MACHADO on 11/21/19 1339 Ibuprofen 800 Mg Tablet, 800 MG PO Q8H PRN for PAIN-MILD Prescribed by: MITRA MACHADO on 09/03/19 1709 Methocarbamol 750 Mg Tablet, 750 MG PO Q6H PRN for PAIN-MODERATE (5-7) Prescribed by: MITRA MACHADO on 11/21/19 1338 Prednisone 20 Mg Tab, 40 MG PO DAILY Prescribed by: MITRA MACHADO on 11/21/19 1338 Past Wgrgdja-Igisjr-Ocaowz Hx Past Med/Social Hx: Reviewed Nursing Past Med/Soc Hx Patient Social History Alcohol Use: Denies Use Number of Drinks Today: AA Alcohol Beverage of Choice: Beer Smoking Status: Current Everyday Smoker Type Used: Cigarettes 2nd Hand Smoke Exposure: Yes Recent Foreign Travel: No Contact w/Someone Who Travel: No Recent Infectious Disease Expo: No Recent Hopitalizations: No Immunizations Up To Date Tetanus Booster (TDap): Unknown Seasonal Allergies Seasonal Allergies: No Past Medical History Surgeries: Yes (LEFT HAND/FINGER STAPH INF SURGERY) Orthopedic Respiratory: No Cardiac: No Neurological: Yes Headaches /Migraines Genitourinary: No Gastrointestinal: No Musculoskeletal: No Endocrine: No HEENT: No Cancer: No Psychosocial: No Integumentary: Yes (STAPH INFECTION) Blood Disorders: No Family Medical History No Pertinent Family Hx Review of Systems Time Seen by Provider: 05:04 Sepsis Event Evaluation Height, Weight, BMI Height: 6'3.00" Weight: 220lbs. oz. 99.218559js; 27.16 BMI Method:Stated Exam Exam Vital Signs Date Time Temp Pulse Resp B/P (MAP) Pulse Ox O2 Delivery O2 Flow Rate FiO2 05/15/20 04:18 75 89/59 05/15/20 04:01 98 Mechanical Ventilator 35 05/15/20 04:00 36.4 75 17 89/59 94 Mechanical Ventilator 35.00 05/15/20 03:09 75 18 98 45 05/15/20 03:00 18 94/63 98 Mechanical Ventilator 55.00 05/15/20 02:00 17 95/66 99 Mechanical Ventilator 60.00 05/15/20 01:00 36.3 78 96/65 Mechanical Ventilator 60.00 05/15/20 01:00 77 05/15/20 00:00 36.3 78 18 96/65 94 Mechanical Ventilator 21.00 05/14/20 23:50 94 Mechanical Ventilator 21 05/14/20 23:00 78 17 98/62 95 Mechanical Ventilator 21.00 05/14/20 22:33 78 18 94 21 05/14/20 22:00 77 17 89/68 94 Mechanical Ventilator 21.00 05/14/20 21:00 78 17 87/56 95 Mechanical Ventilator 21.00 05/14/20 20:17 77 88/59 05/14/20 20:01 36.0 78 18 92/56 94 Mechanical Ventilator 21.00 05/14/20 20:00 78 17 87/49 94 Mechanical Ventilator 21.00 05/14/20 19:53 94 Mechanical Ventilator 21 05/14/20 19:00 77 05/14/20 19:00 77 17 92/56 93 Mechanical Ventilator 21.00 05/14/20 18:49 77 18 98 40 05/14/20 18:00 76 17 82/58 97 Mechanical Ventilator 60.00 05/14/20 17:42 35.6 81 17 119/83 97 Mechanical Ventilator 05/14/20 17:42 35.6 81 17 119/83 97 Mechanical Ventilator 05/14/20 17:41 81 119/83 05/14/20 17:14 35.6 Mechanical Ventilator 60.00 05/14/20 17:00 81 17 119/83 97 Mechanical Ventilator 40.00 05/14/20 16:44 89 05/14/20 16:15 83 18 129/95 95 Mechanical Ventilator 40.00 05/14/20 16:10 80 18 95 40 05/14/20 16:05 97 16 130/84 (91) 97 Mechanical Ventilator 05/14/20 16:00 97 Mechanical Ventilator 60 05/14/20 14:05 105 16 97 45 05/14/20 12:55 36.0 93 10 116/79 (91) 95 I & O 05/15/20 07:00 Intake Total 2100 ml Output Total 950 ml Balance 1150 ml Height & Weight Height: 6'3.00" Weight: 220lbs. oz. 99.253646km; 27.16 BMI Method:Stated General Appearance: No Apparent Distress, WD/WN HEENT: TMs Normal, Other (pinpoint pupils but failed to respond to 2 mg of Narcan IV.) Neck: Full Range of Motion, Normal Inspection Respiratory: Lungs Clear, Normal Breath Sounds, No Respiratory Distress, Other (four horizontal scars ~4" each along mid-sternum appears to be healed reeder) Cardiovascular: Regular Rate, Rhythm, No Edema, No Murmur Capillary Refill: Less Than 3 Seconds Extremity: Normal Inspection, No Pedal Edema Neurologic/Psychiatric: Alert, Oriented x3, No Motor/Sensory Deficits, Normal Mood/Affect Skin: Normal Color, Warm/Dry Results Lab Laboratory Tests 05/14/20 12:57 05/15/20 02:56 Assessment/Plan Assessment/Plan Acute respiratory failure -Currently sedated on vent -D/C sedation and once pt is awake and alert procced with extubation Hypotension -Probably secondary to sedation Acute drug intoxication with complication Methamphetamine, Benzodiazapine, and Cannibis abuse Acute metabolic encephalopathy DVT Prophylaxis: QI Doran DO May 15, 2020 05:04
--- NOTE | 2020-05-15 05:09 | NUR ---
dr campbell here plan to dc sedation et. extubate pt as tolerated.
[2020-05-15] MEDS ORDERED: POTASSIUM CL 10MEQ/50ML IVPB 50 ML IV SCH (06:00)
[2020-05-15] MEDS ORDERED: KCL 20 MEQ TAB (K-DUR) PO SCH (06:00)
[2020-05-15] MEDS ORDERED: MAGNESIUM 1 GM/100 ML IVPB 100 ML IV SCH (06:00)
[2020-05-15] MEDS: inSUlin ASPART (NovoLOG) 1 UNIT/0.01 ML (CHARGE PER UNIT) SC SCH (06:04)
--- NOTE | 2020-05-15 06:39 | Diagnostic Imaging Report ---
INDICATION: Intubated, shortness of breath. COMPARISON: 05/14/2020. FINDINGS: Single view of the chest demonstrates increasing and/or new pleural effusion left base. Right lung is clear. There is no pneumothorax. ET tube and NG tube are in good position. The heart size is normal. IMPRESSION: New and/or increasing effusion left base. Dictated by: Dictated on workstation # [id number]
[2020-05-15] MEDS ORDERED: PANTOPRAZOLE 40 MG (PROTONIX) VIAL IV SCH (07:00)
[2020-05-15] MEDS ORDERED: CHLORASEPTIC SPRAY 177 ML LIQUID MC PRN (08:00)
--- NOTE | 2020-05-15 08:34 | Diagnostic Imaging Report ---
EXAMINATION: Chest radiograph, portable AP view. DATE: 05/15/2020 8:31 AM hours. INDICATION: 34-year-old male, chest pain. COMPARISON: May 15, 2020 at 0344 hours. FINDINGS: Heart size and mediastinal contours are unchanged and unremarkable. There is no identified pneumothorax. There is no large pleural effusion. There is no identified focal airspace consolidation. IMPRESSION: No identified acute cardiopulmonary abnormality. Dictated by: Dictated on workstation # [id number]
--- NOTE | 2020-05-15 08:36 | Occ Therapy Progress Note ---
Therapy Progress Note OT order received, chart reviewed. Pt. is currently sedated and on mechanical ventilation. Will continue to monitor and assess for skilled treatment when medically stable. Thank you for this referral. [id number] JIGNESH DAVIS OT May 15, 2020 08:36
--- NOTE | 2020-05-15 09:14 | Progress Note - Hospitalist ---
Subjective HPI/CC On Admission Date Seen by Provider: May 15, 2020 Time Seen by Provider: 09:11 Juan Wilks Jr is a 34 year old male who presented with altered mental status. He was brought in by his girlfriend who said he had been dizzy. She denied any history of drug use. He was too altered to provide any history. Due to his decre ased level of consciousness he was intubated in the ER. Upon my examination he is intubated and sedated. Subjective/Events-last exam Pt reports feeling better now. Complains of sore throat. Discussed his UDS results. He states he took a friend's Xanax but otherwise does not know how he get all of thos drugs in his system. Shortly after our conversation called back to room for all over pain with some worsening in chest. Patient tearful and states that he's scared. Objective Exam Vital Signs Vital Signs Date Time Temp Pulse Resp B/P (MAP) Pulse Ox O2 Delivery O2 Flow Rate FiO2 05/15/20 08:00 58 16 130/71 94 High Flow N/C 2.00 05/15/20 04:01 35 05/15/20 04:00 36.4 Capillary Refill : Less Than 3 SecondsLess Than 3 Seconds General Appearance: No Apparent Distress, WD/WN Respiratory: Lungs Clear, No Respiratory Distress Cardiovascular: Regular Rate, Rhythm, No Murmur Gastrointestinal: Normal Bowel Sounds, Non Tender, Soft Neurologic/Psychiatric: Alert, Oriented x3 Results/Procedures Lab Laboratory Tests 05/14/20 12:57 05/15/20 02:56 Patient resulted labs reviewed. Imaging: Reviewed Imaging Report Assessment/Plan Assessment and Plan Assess & Plan/Chief Complaint Acute drug intoxication with complication Endotracheally intubated Methamphetamine abuse Benzodiazapine abuse Cannibis abuse Acute metabolic encephalopathy Chest pain CXR negative, repeat this morning with new onset CXR CT Head normal Urine tox positive for methamphetamines, benzodiazapines, and cannibis Extubated this AM, now off oxygen Troponin and d-dimer ordered Cardiology consulted, as EKG shows signs concerning for pericarditis Echo pending DVT Prophylaxis: Lovenox Diagnosis/Problems Diagnosis/Problems (1) Chest pain Qualifiers: Chest pain type: unspecified Qualified Codes: R07.9 - Chest pain, unspecified (2) Pericarditis Qualifiers: Pericarditis type: unspecified type Chronicity: unspecified Qualified Codes: I31.9 - Disease of pericardium, unspecified (3) Acute metabolic encephalopathy Status: Acute (4) Acute drug intoxication with complication Status: Acute (5) Endotracheally intubated Status: Resolved Resolution Date/Time: 05/15/20 @ 09:17 (6) Benzodiazepine abuse Status: Acute (7) Cannabis abuse Status: Acute (8) Methamphetamine abuse Status: Acute (9) Benzodiazepine overdose Status: Acute Qualifiers: Encounter type: initial encounter Injury intent: undetermined intent Qualified Codes: T42.4X4A - Poisoning by benzodiazepines, undetermined, initial encounter Clinical Quality Measures DVT/VTE Risk/Contraindication: Risk Factor Score Per Nursin RFS Level Per Nursing on Admit: 2=Moderate COLLIN NICOLE MD May 15, 2020 09:14
--- NOTE | 2020-05-15 09:31 | Consultation-Cardiology ---
HPI-Cardiology Cardiology Consultation Date of Consultation 05/15/20 Date of Admission Time Seen by Provider: 09:27 Indication: chest pain HPI 34 years old gentleman who was admitted for change in mental status and respiratory failure, UDS was positive for benzodiazepine, marijuana and methamphetamine. He was extubated today, was feeling well initially and then he started to have chest pain, described pain on the left side of his chest with movement and inspiration, having pain in his throat. Fairly anxious. Reported similar episode of chest pain in October 2019. No follow-up was made, had an EKG done which showed diffuse ST elevation. On my evaluation was laying down comfortably, feeling better laying back flat. Complaining of pain with breathing Home Medications & Allergies Allergies: Coded Allergies: No Known Drug Allergies (Unverified , 05/31/15) Home Medication List Reviewed: Yes HEM-Lgouwj-Bayyjt Hx Patient Social History Marital Status: single Employed/Student: employed Alcohol Use: Denies Use Smoking Status: Current Everyday Smoker Type Used: Cigarettes 2nd Hand Smoke Exposure: Yes Recent Foreign Travel: No Recent Infectious Disease Expo: No Recent Hopitalizations: No Immunizations Up To Date Tetanus Booster (TDap): Unknown Past Medical History Discussed below Family Medical History Significant Family History: No Pertinent Family Hx Family Medical Hx Noncontributory Review of Systems-General Review of Systems Constitutional: see HPI, malaise EENTM: see HPI, mouth pain, mouth swelling, throat pain Respiratory: see HPI, cough; No dyspnea on exertion, No hemoptysis, No orthopnea, No phlegm, No short of breath, No stridor, No wheezing, No other Cardiovascular: see HPI, chest pain; No edema, No Hx of Intervention, No palpitations, No syncope, No vascular heart diseas, No other Gastrointestinal: no symptoms reported, see HPI Genitourinary: no symptoms reported, see HPI Musculoskeletal: no symptoms reported, see HPI Skin: no symptoms reported, see HPI Psychiatric/Neurological: No Symptoms Reported, See HPI Reviewed Test Results Reviewed Test Results Lab Laboratory Tests Test 05/14/20 12:57 05/14/20 13:30 05/14/20 13:46 05/14/20 16:23 Range/Units White Blood Count 7.8 4.3-11.0 10^3/uL Red Blood Count 5.53 H 4.30-5.52 10^6/uL Hemoglobin 15.6 13.3-17.7 g/dL Hematocrit 48 40-54 % Mean Corpuscular Volume 87 80-99 fL Mean Corpuscular Hemoglobin 28 25-34 pg Mean Corpuscular Hemoglobin Concent 33 32-36 g/dL Red Cell Distribution Width 13.7 10.0-14.5 % Platelet Count 341 130-400 10^3/uL Mean Platelet Volume 8.7 L 9.0-12.2 fL Immature Granulocyte % (Auto) 0 % Neutrophils (%) (Auto) 60 42-75 % Lymphocytes (%) (Auto) 28 12-44 % Monocytes (%) (Auto) 10 0-12 % Eosinophils (%) (Auto) 1 0-10 % Basophils (%) (Auto) 0 0-10 % Neutrophils # (Auto) 4.7 1.8-7.8 10^3/uL Lymphocytes # (Auto) 2.2 1.0-4.0 10^3/uL Monocytes # (Auto) 0.8 0.0-1.0 10^3/uL Eosinophils # (Auto) 0.1 0.0-0.3 10^3/uL Basophils # (Auto) 0.0 0.0-0.1 10^3/uL Immature Granulocyte # (Auto) 0.0 0.0-0.1 10^3/uL Sodium Level 138 135-145 MMOL/L Potassium Level 4.7 3.6-5.0 MMOL/L Chloride Level 102 98-107 MMOL/L Carbon Dioxide Level 24 21-32 MMOL/L Anion Gap 12 5-14 MMOL/L Blood Urea Nitrogen 15 7-18 MG/DL Creatinine 1.20 0.60-1.30 MG/DL Estimat Glomerular Filtration Rate > 60 BUN/Creatinine Ratio 13 Glucose Level 80 70-105 MG/DL Calcium Level 10.0 8.5-10.1 MG/DL Corrected Calcium 8.5-10.1 MG/DL Total Bilirubin 0.8 0.1-1.0 MG/DL Aspartate Amino Transf (AST/SGOT) 31 5-34 U/L Alanine Aminotransferase (ALT/SGPT) 34 0-55 U/L Alkaline Phosphatase 69 40-136 U/L Total Creatine Kinase 525 H 30-200 U/L Total Protein 8.3 H 6.4-8.2 GM/DL Albumin 4.7 H 3.2-4.5 GM/DL Salicylates Level < 5.0 L 5.0-20.0 MG/DL Acetaminophen Level < 10 L 10-30 UG/ML Serum Alcohol < 10 <10 MG/DL Urine Color YELLOW Urine Clarity CLEAR Urine pH 5.5 5-9 Urine Specific [place] >=1.030 1.016-1.022 Urine Protein TRACE H NEGATIVE Urine Glucose (UA) NEGATIVE NEGATIVE Urine Ketones TRACE H NEGATIVE Urine Nitrite NEGATIVE NEGATIVE Urine Bilirubin NEGATIVE NEGATIVE Urine Urobilinogen 0.2 < = 1.0 MG/DL Urine Leukocyte Esterase NEGATIVE NEGATIVE Urine RBC (Auto) NEGATIVE NEGATIVE Urine RBC RARE /HPF Urine WBC RARE /HPF Urine Crystals NONE /LPF Urine Bacteria NEGATIVE /HPF Urine Casts NONE /LPF Urine Mucus SMALL H /LPF Urine Other LG SPERM H /HPF Urine Culture Indicated NO Urine Opiates Screen NEGATIVE NEGATIVE Urine Oxycodone Screen NEGATIVE NEGATIVE Urine Methadone Screen NEGATIVE NEGATIVE Urine Propoxyphene Screen NEGATIVE NEGATIVE Urine Barbiturates Screen NEGATIVE NEGATIVE Ur Tricyclic Antidepressants Screen NEGATIVE NEGATIVE Urine Phencyclidine Screen NEGATIVE NEGATIVE Urine Amphetamines Screen POSITIVE H NEGATIVE Urine Methamphetamines Screen POSITIVE H NEGATIVE Urine Benzodiazepines Screen POSITIVE H NEGATIVE Urine Cocaine Screen NEGATIVE NEGATIVE Urine Cannabinoids Screen POSITIVE H NEGATIVE Coronavirus 2019 (OBED) Negative Negative Glucometer 110 70-110 MG/DL Blood Gas Puncture Site Rt Rad Blood Gas Patient Temperature 35.7 Arterial Blood pH 7.40 7.37-7.43 Arterial Blood Partial Pressure CO2 36 35-45 MMHG Arterial Blood Partial Pressure O2 80 79-93 MMHG Arterial Blood HCO3 22 L 23-27 MMOL/L Arterial Blood Total CO2 23.6 21.0-31.0 MMOL/L Arterial Blood Oxygen Saturation 96 94-100 % Arterial Blood Base Excess -1.9 -2.5-2.5 MMOL/L Nas Test POS Blood Gas Ventilator Setting YES Blood Gas Inspired Oxygen 40% Test 05/14/20 18:13 05/14/20 23:33 05/15/20 02:56 05/15/20 03:20 Range/Units Glucometer 105 87 70-110 MG/DL White Blood Count 5.3 4.3-11.0 10^3/uL Red Blood Count 4.81 4.30-5.52 10^6/uL Hemoglobin 13.7 13.3-17.7 g/dL Hematocrit 42 40-54 % Mean Corpuscular Volume 86 80-99 fL Mean Corpuscular Hemoglobin 29 25-34 pg Mean Corpuscular Hemoglobin Concent 33 32-36 g/dL Red Cell Distribution Width 13.8 10.0-14.5 % Platelet Count 297 130-400 10^3/uL Mean Platelet Volume 9.0 9.0-12.2 fL Immature Granulocyte % (Auto) 0 % Neutrophils (%) (Auto) 38 L 42-75 % Lymphocytes (%) (Auto) 50 H 12-44 % Monocytes (%) (Auto) 8 0-12 % Eosinophils (%) (Auto) 3 0-10 % Basophils (%) (Auto) 1 0-10 % Neutrophils # (Auto) 2.0 1.8-7.8 10^3/uL Lymphocytes # (Auto) 2.7 1.0-4.0 10^3/uL Monocytes # (Auto) 0.4 0.0-1.0 10^3/uL Eosinophils # (Auto) 0.2 0.0-0.3 10^3/uL Basophils # (Auto) 0.0 0.0-0.1 10^3/uL Immature Granulocyte # (Auto) 0.0 0.0-0.1 10^3/uL D-Dimer 0.34 0.00-0.49 UG/ML Sodium Level 139 135-145 MMOL/L Potassium Level 4.1 3.6-5.0 MMOL/L Chloride Level 107 98-107 MMOL/L Carbon Dioxide Level 22 21-32 MMOL/L Anion Gap 10 5-14 MMOL/L Blood Urea Nitrogen 12 7-18 MG/DL Creatinine 0.86 0.60-1.30 MG/DL Estimat Glomerular Filtration Rate > 60 BUN/Creatinine Ratio 14 Glucose Level 93 70-105 MG/DL Calcium Level 8.6 8.5-10.1 MG/DL Phosphorus Level 2.6 2.3-4.7 MG/DL Magnesium Level 2.1 1.6-2.4 MG/DL Blood Gas Puncture Site LEFT RADIAL Blood Gas Patient Temperature 36.2 Arterial Blood pH 7.42 7.37-7.43 Arterial Blood Partial Pressure CO2 38 35-45 MMHG Arterial Blood Partial Pressure O2 87 79-93 MMHG Arterial Blood HCO3 24 23-27 MMOL/L Arterial Blood Total CO2 25.2 21.0-31.0 MMOL/L Arterial Blood Oxygen Saturation 98 94-100 % Arterial Blood Base Excess -0.1 -2.5-2.5 MMOL/L Nas Test YES-POS Blood Gas Ventilator Setting YES Blood Gas Inspired Oxygen 35% Test 05/15/20 05:57 05/15/20 08:25 Range/Units Glucometer 75 70-110 MG/DL Erythrocyte Sedimentation Rate 4 0-15 MM/HR Troponin I < 0.028 <0.028 NG/ML Physical Exam Physical Exam Vital Signs Vital Signs - First Documented 05/14/20 05/14/20 05/14/20 05/14/20 12:55 14:05 16:00 16:15 Temp 36.0 Pulse 93 Resp 10 B/P (MAP) 116/79 (91) Pulse Ox 95 O2 Delivery Mechanical Ventilator O2 Flow Rate 40.00 FiO2 45 Capillary Refill : Less Than 3 SecondsLess Than 3 Seconds Height, Weight, BMI Height: 6'3.00" Weight: 220lbs. oz. 99.943769ll; 27.16 BMI Method:Stated General Appearance: No Apparent Distress, WD/WN Eyes: Bilateral Eye Normal Inspection, Bilateral Eye PERRL, Bilateral Eye EOMI HEENT: TMs Normal, Other (pinpoint pupils but failed to respond to 2 mg of Narcan IV.) Neck: Full Range of Motion, Normal Inspection Respiratory: Lungs Clear, Normal Breath Sounds, No Accessory Muscle Use, No Respiratory Distress Cardiovascular: Regular Rate, Rhythm, No Edema, No Gallop, No JVD, No Murmur Gastrointestinal: Normal Bowel Sounds, Non Tender, Soft Back: Normal Inspection, No CVA Tenderness, No Vertebral Tenderness Extremity: Normal Inspection, No Pedal Edema Neurologic/Psychiatric: Alert, Oriented x3 Skin: Normal Color, Warm/Dry Lymphatic: No Adenopathy A/P-Cardiology Admission Diagnosis Chest pain Abnormal EKG Acute respiratory failure Change in mental status Assessment/Plan Chest pain nonspecific etiology, atypical in presentation, EKG showed diffuse ST elevation upsloping. His sedimentation rate is normal, pain is better laying down flat, having more pain with breathing. Probably pleurisy. I will evaluate 2-D echo Status post respiratory failure, extubated today. Managed by primary care team Change in mental status secondary to illicit drugs. Currently feeling better Urine drug screen was positive for marijuana, benzodiazepine and methamphetamine, patient admits using marijuana and taking one Xanax pill, denied using methamphetamine. Clinical Quality Measures DVT/VTE Risk/Contraindication: Risk Factor Score Per Nursin RFS Level Per Nursing on Admit: 2=Moderate JOSE ROWE MD May 15, 2020 09:31
--- NOTE | 2020-05-15 10:20 | Physical Therapy Progress Note ---
Therapy Progress Note Patient is independent with all gross motor skills. He declined PT and is agitated. RN present. Patient is requesting to leave hospital. PT to dismiss patient from services at this time. VIRGINIA SHIRLEY PT May 15, 2020 10:20
--- NOTE | 2020-05-15 10:40 | NUR ---
PT LEFT AMA. PT PERSONAL BELONGINGS SENT WITH PT. DR NICOLE NOTIFIED OF PT LEAVING AMA.
--- NOTE | 2020-05-15 11:13 | NUR ---
PT LEFT AMA BEFORE MED REC COULD BE COMPLETED
--- NOTE | 2020-05-16 11:06 | Physician Query Clarification ---
PQ-Further Specificity Admission/Discharge Admission Date: May 14, 2020 at 14:08 Discharge Date: May 15, 2020 at 10:40 Dr. Ariza, The medical record reflects the following clinical scenario: History/Risk Factors: Benzodiazepine OD/intoxication Clinical Findings: positive drug screen Treatment: mechanical ventilation, intubation Question: Can you further specify if the patient had Benzo overdose or acute intoxication per the clinical indicators above? Please document a response in the Progress Notes or Discharge Summary. 1. Benzodiazepine overdose 2. acute benzodiazepine intoxication 3. Other, with explanation of the clinical findings. 4. Clinically undetermined, no explanation for the clinical findings. PHYSICIAN RESPONSE Can you specify per above: 1 Please remember a lack of response to the above will prompt a phone page by [facility] staff. In responding to this query, please exercise your independent professional judgment. The purpose of this communication is to more accurately reflect the complexity of your patients condition. The fact that a question is asked does not imply that any particular answer is desired or expected. Thank you for your timely response to this clarification. Requestors name: Ellen THIS PHYSICIAN QUERY FORM IS A PERMANENT PART OF THE MEDICAL RECORD ELLEN WRAY May 16, 2020 11:06 FABIOLA ARIZA MD May 22, 2020 17:52
== END 2020-05-15 10:40 | disposition left against medical advice (07) | DRG 917 ==
LOC: EDUNIT# 12:56 → ER 12:57 → ICU 14:08
PROVIDERS: ADMIT Internal Medicine; ATTEND Internal Medicine
PROC: 5A1935Z Respiratory Ventilation, Less than 24 Consecutive Hours (ICD-10-PCS; principal; 2020-05-14)
PROC: 0BH17EZ Insertion of Endotracheal Airway into Trachea, Via Natural or Artificial Opening (ICD-10-PCS; 2020-05-14)
DX: T42.4X1A Poisoning by benzodiazepines, accidental (unintentional), initial encounter (principal); G93.41 Metabolic encephalopathy; J96.00 Acute respiratory failure, unspecified whether with hypoxia or hypercapnia; F13.129 Sedative, hypnotic or anxiolytic abuse with intoxication, unspecified; R40.0 Somnolence; R09.1 Pleurisy; F15.10 Other stimulant abuse, uncomplicated; F12.10 Cannabis abuse, uncomplicated; I95.9 Hypotension, unspecified; Z20.828 Contact with and (suspected) exposure to other viral communicable diseases; F17.210 Nicotine dependence, cigarettes, uncomplicated
CPT/HCPCS: 31500; 36415; 51702; 70450; 71045; 80048; 80053; 80306; 80320; 80329; 81000; 82550; 82805; 82962; 83735; 84100; 84484; 85025; 85379; 85652; 87081; 87635; 93005; 93306; 94002; 94003; 94799; 96361; 96374; 96375; 99291

== ENCOUNTER 2020-08-14 21:56 | Emergency (ER) | payer SELFPAY ==
[2020-08-14 22:20] VITALS: BP 147/103
--- NOTE | 2020-08-14 23:06 | ED Neurological Problem ---
General Chief Complaint: General Problems/Pain Stated Complaint: NECK PAIN Nursing Triage Note: TO ED VIA POV AND AMBULATORY TO ROOM 5. PT STATES HE HAS A PINCHED NERVE AND HAD A MIGRAINE EARLIER. STATES, "MY MIGRAINE IS GONE BUT I THOUGHT I SHOULD COME OUT BECAUSE I HAD ONE EARLIER. DENIES PAIN. Nursing Sepsis Screen: No Definite Risk Source: patient Exam Limitations: no limitations History of Present Illness Date Seen by Provider: Aug 14, 2020 Time Seen by Provider: 22:45 Initial Comments This 35-year-old gentleman presents to the emergency room with concerns about recurrent headaches he has been having. He had one earlier today and symptoms have now dissipated. His headaches seem to start with tension in the left neck musculature radiating down into the left trapezius muscle. Then the pain works its way up the left side of his head and behind his eye. He then develops a blurry vision change that sometimes last for several hours. He tends to get nauseated and very tired during these headaches. He presumed them to be caused by a pinched nerve and migraines. He currently is not being seen by a primary care provider. He reports having a head injury when he was 16 years old. He has some associated lightheadedness and dizziness with these headaches. He sometimes has 3 headaches a day. He has taken some Aleve with minimal improvement. He denies any recent drug or alcohol use. He also sometimes experiences paresthesias down his left arm and minimally down his left leg. Allergies and Home Medications Allergies Coded Allergies: No Known Drug Allergies (Unverified , 05/31/15) Home Medications Cyclobenzaprine HCl 10 Mg Tablet, 10 MG PO Q8H PRN for SPASMS Prescribed by: PAULA GRAVES on 08/14/20 2312 Hydrocodone/Acetaminophen 1 Each Tablet, 1 EACH PO Q4-6HR PRN for PAIN-MODERATE Prescribed by: MITRA MACHADO on 11/21/19 1339 Ibuprofen 800 Mg Tablet, 800 MG PO Q8H PRN for PAIN-MILD Prescribed by: MITRA MACHADO on 09/03/19 1709 Methocarbamol 750 Mg Tablet, 750 MG PO Q6H PRN for PAIN-MODERATE (5-7) Prescribed by: MITRA MACHADO on 11/21/19 1338 Ondansetron 4 Mg Tab.rapdis, 4 MG SL Q4H PRN for NAUSEA/VOMITING Prescribed by: PAULA GRAVES on 08/14/20 2312 Prednisone 20 Mg Tab, 40 MG PO DAILY Prescribed by: MITRA MACHADO on 11/21/19 1338 Patient Home Medication List Home Medication List Reviewed: Yes Review of Systems Review of Systems Constitutional: no symptoms reported Eyes: See HPI Ears, Nose, Mouth, Throat: no symptoms reported Respiratory: no symptoms reported Cardiovascular: no symptoms reported Gastrointestinal: no symptoms reported Genitourinary: no symptoms reported Musculoskeletal: see HPI Skin: no symptoms reported Psychiatric/Neurological: See HPI Endocrine: No Symptoms Reported Hematologic/Lymphatic: No Symptoms Reported Past Wmwrwuj-Dzbldx-Ndhgui Hx Past Med/Social Hx: Reviewed Nursing Past Med/Soc Hx Patient Social History Alcohol Use: Past History Number of Drinks Today: AA Alcohol Beverage of Choice: Beer Drug of Choice: MARIJUANA Smoking Status: Current Everyday Smoker Type Used: Cigarettes 2nd Hand Smoke Exposure: Yes Recent Infectious Disease Expo: No Recent Hopitalizations: No Immunizations Up To Date Tetanus Booster (TDap): Unknown Seasonal Allergies Seasonal Allergies: No Past Medical History Surgeries: Yes (LEFT HAND/FINGER STAPH INF SURGERY) Orthopedic Respiratory: No Cardiac: No Neurological: Yes Headaches /Migraines Genitourinary: No Gastrointestinal: No Musculoskeletal: No Endocrine: No HEENT: No Cancer: No Psychosocial: No Integumentary: Yes (STAPH INFECTION) Blood Disorders: No Family Medical History No Pertinent Family Hx Physical Exam Vital Signs Vital Signs - First Documented 08/14/20 22:20 Temp 37.9 Pulse 87 Resp 16 B/P (MAP) 147/103 (118) O2 Delivery Room Air Capillary Refill : Less Than 3 Seconds Height, Weight, BMI Height: 6'3.00" Weight: 220lbs. oz. 99.598568zd; 27.16 BMI Method:Stated General Appearance: WD/WN, no apparent distress HEENT: PERRL/EOMI, normal ENT inspection, TMs normal Neck: normal inspection, other (Tension tenderness in the left posterior paraspinous muscles) Respiratory: lungs clear, normal breath sounds, no respiratory distress Cardiovascular: regular rate, rhythm, no edema, no murmur Gastrointestinal: non tender, soft Extremities: normal inspection, no pedal edema, other (Tenderness in the left medial trapezius muscle) Neurologic/Psychiatric: binder roller II-XII nml as tested, no motor/sensory deficits, alert, normal mood/affect, oriented x 3 Crainal Nerves: normal hearing, normal speech, PERRL Motor/Sensory: no motor deficit, no sensory deficit Skin: normal color, warm/dry Procedures/Interventions Date of ETT Placement: May 14, 2020 Time of ETT Placement: 1320 Progress/Results/Core Measures Results/Orders Vital Signs/I&O 08/14/20 22:20 Temp 37.9 Pulse 87 Resp 16 B/P (MAP) 147/103 (118) O2 Delivery Room Air Blood Pressure Mean: 118 Progress Progress Note : Progress Note Patient did not require any immediate treatment as his symptoms dissipated before arrival. We discussed treatments for then triggers a migraine. I have recommended he follow-up with a primary care provider soon as possible for imaging of his neck and possibly his head. In the meantime, I have provided recommendations for medication dosing. Departure Impression Primary Impression: Tension headache Additional Impressions: Migraine headache Qualified Codes: G43.109 - Migraine with aura, not intractable, without status migrainosus Cervical radiculopathy Disposition: HOME, SELF-CARE Condition: Improved Departure-Patient Inst. Decision time for Depature: 23:03 Referrals: NO,LOCAL PHYSICIAN (PCP/Family) Primary Care Physician Patient Instructions: Migraines (DC), Radiculopathy Add. Discharge Instructions: Complete financial assistance paperwork for the hospital and establish with a primary care provider soon as possible. At your appointment with the primary care provider discuss further work-up and treatment for your neck pain and headaches. It is possible that you have cervical radiculopathy causing tension headaches and migraine headaches as well as the numbness down your arm. MRI evaluation of your neck and possibly your head may be appropriate. When you feel the neck tension and headaches coming on, take either ibuprofen 600 mg or Aleve (naproxen) up to 500 mg and rest in a quiet, calm, dark place. For nausea you may use Zofran (ondansetron) as prescribed. All discharge instructions reviewed with patient and/or family. Voiced seda becerra. Scripts Cyclobenzaprine HCl (Cyclobenzaprine HCl) 10 Mg Tablet 10 MG PO Q8H PRN for SPASMS, #10 TAB 0 Refills Prov: PAULA SANABRIA MD 08/14/20 Ondansetron (Ondansetron Odt) 4 Mg Tab.rapdis 4 MG SL Q4H PRN for NAUSEA/VOMITING, #10 TAB Prov: PAULA SANABRIA MD 08/14/20 PAULA SANABRIA MD Aug 14, 2020 23:06
[2020-08-14] MEDS ORDERED: CYCL10TA9 PO (23:12)
[2020-08-14] MEDS ORDERED: ONDA4TAB11 SL (23:12)
== END 2020-08-14 23:16 | disposition home or self-care (01) ==
LOC: EDUNIT# 21:56 → ER 21:58
DX: G43.909 Migraine, unspecified, not intractable, without status migrainosus (principal); G44.209 Tension-type headache, unspecified, not intractable; F17.210 Nicotine dependence, cigarettes, uncomplicated; Z79.52 Long term (current) use of systemic steroids
CPT/HCPCS: 99281

== ENCOUNTER 2020-09-04 16:29 | Emergency (ER) | payer SELFPAY ==
[~2020-09-04] VITALS: Ht 193 cm; Wt 97.5 kg
[~2020-09-04 16:29] MED LIST changes: +BUTA-235; -BUTA1TAB9; +CYCL10TA9 PO; +ONDA4TAB11 SL
[2020-09-04] MEDS ORDERED: ORPHENADRINE 60 MG/2 ML (NORFLEX) AMP (ED ONLY) IM ONE (18:00)
[2020-09-04] MEDS ORDERED: CYCL10TA9 PO (18:00)
[2020-09-04] MEDS ORDERED: KETOROLAC 60 MG/2 ML VIAL IM ONE (18:00)
--- NOTE | 2020-09-04 18:01 | ED Headache ---
General Chief Complaint: Head/Cervical Problems Stated Complaint: NECK/SHOULDER PAIN, MIGRAINE Nursing Triage Note: PT AMB TO TRIAGE WITH COMPLAINT OF NECK, SHOULDER AND HEAD PAIN. STATES PAIN HAS BEEN ONGOING FOR A MONTH. WENT TO CHIROPRACTER FRIDAY AND PAIN HAS WORSENED. Nursing Sepsis Screen: No Definite Risk Source: patient Exam Limitations: no limitations History of Present Illness Date Seen by Provider: Sep 04, 2020 Time Seen by Provider: 16:40 Initial Comments This is a well-appearing 35-year-old male who presented to ER with complaint of tension type headache. States he has been having these chronic headaches since he was 16 years old and was recently seen and treated in this ER with Flexeril. Reports that Flexeril helped him with his symptoms where Tylenol ibuprofen and topical BenGay has not. He has not yet established with a primary care provider but was wondering if he could have additional Flexeril to assist with his pain until he can establish with a PCP. Denies any new symptoms. States he went to the chiropractor this Friday and his symptoms have worsened after adjustment. Allergies and Home Medications Allergies Coded Allergies: No Known Drug Allergies (Unverified , 05/31/15) Home Medications Cyclobenzaprine HCl 10 Mg Tablet, 10 MG PO Q8H PRN for SPASMS Prescribed by: PAULA GRAVES on 08/14/202311 Cyclobenzaprine HCl 10 Mg Tablet, 10 MG PO Q8H PRN for SPASMS Prescribed by: JEAN EUGENE on 09/04/20 1800 Hydrocodone/Acetaminophen 1 Each Tablet, 1 EACH PO Q4-6HR PRN for PAIN-MODERATE Prescribed by: MITRA MACHADO on 11/21/19 1339 Ibuprofen 800 Mg Tablet, 800 MG PO Q8H PRN for PAIN-MILD Prescribed by: MITRA MACHADO on 09/03/19 1709 Methocarbamol 750 Mg Tablet, 750 MG PO Q6H PRN for PAIN-MODERATE (5-7) Prescribed by: MITRA MACHADO on 11/21/19 1338 Ondansetron 4 Mg Tab.rapdis, 4 MG SL Q4H PRN for NAUSEA/VOMITING Prescribed by: PAULA GRAVES on 08/14/20 231 Prednisone 20 Mg Tab, 40 MG PO DAILY Prescribed by: MITRA MACHADO on 11/21/19 1338 Patient Home Medication List Home Medication List Reviewed: Yes Review of Systems Review of Systems Constitutional: no symptoms reported Eyes: See HPI Ears, Nose, Mouth, Throat: see HPI Respiratory: no symptoms reported Cardiovascular: no symptoms reported Gastrointestinal: no symptoms reported Genitourinary: no symptoms reported Musculoskeletal: see HPI Skin: no symptoms reported Psychiatric/Neurological: No Symptoms Reported Past Zdisfsn-Lqnesk-Rbqobx Hx Patient Social History Alcohol Use: Denies Use Number of Drinks Today: AA Alcohol Beverage of Choice: Beer Drug of Choice: MARIJUANA Smoking Status: Current Everyday Smoker Type Used: Cigarettes 2nd Hand Smoke Exposure: Yes Recent Infectious Disease Expo: No Recent Hopitalizations: No Immunizations Up To Date Tetanus Booster (TDap): Unknown Seasonal Allergies Seasonal Allergies: No Past Medical History Surgeries: Yes (LEFT HAND/FINGER STAPH INF SURGERY) Orthopedic Respiratory: No Cardiac: No Neurological: Yes Headaches /Migraines Genitourinary: No Gastrointestinal: No Musculoskeletal: No Endocrine: No HEENT: No Cancer: No Psychosocial: No Integumentary: Yes (STAPH INFECTION) Blood Disorders: No Family Medical History No Pertinent Family Hx Physical Exam Vital Signs Vital Signs - First Documented 09/04/20 16:38 Pulse 56 Resp 16 B/P (MAP) 143/91 (108) Pulse Ox 100 O2 Delivery Room Air Capillary Refill : Less Than 3 Seconds Height, Weight, BMI Height: 6'3.00" Weight: 220lbs. oz. 99.417773nx; 26.00 BMI Method:Stated General Appearance: WD/WN, no apparent distress HEENT: PERRL/EOMI, normal ENT inspection, pharynx normal Neck: full range of motion, supple, normal inspection, tender lateral (left la teral tenderness over trapezus. ) Cardiovascular: normal peripheral pulses, regular rate, rhythm, no murmur Respiratory: lungs clear, normal breath sounds Gastrointestinal: normal bowel sounds, soft Back: normal inspection, no vertebral tenderness Extremities: normal range of motion, non-tender, normal inspection Psychiatric: alert, oriented x 3 Crainal Nerves: normal hearing, normal speech, PERRL Motor/Sensory: no motor deficit, no sensory deficit Skin: normal color, warm/dry Procedures/Interventions Date of ETT Placement: May 14, 2020 Time of ETT Placement: 1320 Progress/Results/Core Measures Results/Orders My Orders Orders - JEAN EUGENE MED[facility]AL CHEMIST Orphenadrine Inj (Ed Only) (Norflex Inje (09/04/20 18:00) Ketorolac Injection (Toradol Injection) (09/04/20 18:00) Medications Given in ED Vital Signs/I&O 09/04/20 09/04/20 16:38 18:31 Pulse 56 56 Resp 16 16 B/P (MAP) 143/91 (108) 143/91 (108) Pulse Ox 100 100 O2 Delivery Room Air Room Air Blood Pressure Mean: 108 Progress Progress Note : Progress Note Patient examined and in no acute distress. States that this is a chronic issue and has received Flexeril in the past which has improved his symptoms. States that he would like to have some Flexeril as needed until he can establish with a primary care provider. Reviewed discharge plan and he is agreeable with plan. States that he will work on establishing with a primary care provider this week. All questions addressed. Departure Impression Primary Impression: Tension type headache Disposition: 01 HOME, SELF-CARE Condition: Improved Departure-Patient Inst. Decision time for Depature: 17:58 Referrals: NO,LOCAL PHYSICIAN (PCP/Family) Primary Care Physician Patient Instructions: Tension Headache (DC) Add. Discharge Instructions: Plan: 1. Discharge home. Take Flexeril as needed every 8 hours for breakthrough pain. 2. May take Tylenol or Ibuprofen as needed for pain per package instructions. Do not exceed recommended dose. 3. Establish with a primary care provider for further evaluation. 4. Return for any new or concerning symptoms. All discharge instructions reviewed with patient and/or family. Voiced understanding. Scripts Cyclobenzaprine HCl (Cyclobenzaprine HCl) 10 Mg Tablet 10 MG PO Q8H PRN for SPASMS, #30 TAB 0 Refills Prov: JEAN EUGENE APRN 09/04/20 Copy Copies To 1: [facility]MI[facility] Sep 04, 2020 18:01
[2020-09-04 18:31] VITALS: BP 143/91
== END 2020-09-04 18:32 | disposition home or self-care (01) ==
LOC: EDUNIT# 16:29 → ER 16:32
DX: G44.209 Tension-type headache, unspecified, not intractable (principal); F17.210 Nicotine dependence, cigarettes, uncomplicated; Z79.52 Long term (current) use of systemic steroids
CPT/HCPCS: 99284

== ENCOUNTER 2020-09-27 04:58 | Emergency (ER) | payer SELFPAY ==
[~2020-09-27] VITALS: Ht 193 cm; Wt 97.5 kg
[2020-09-27] MEDS ORDERED: ONDANSETRON 4 MG/2 ML (SDV) Z0FRAN ONE (05:07)
[2020-09-27] MEDS ORDERED: LACTATED RINGERS 1,000 ML IV ONE ×2 (05:07→05:15)
--- NOTE | 2020-09-27 05:10 | ED Abdominal Pain ---
General Chief Complaint: Abdominal/GI Problems Stated Complaint: ABD PAIN Source of Information: Patient History of Present Illness Date Seen by Provider: Sep 27, 2020 Time Seen by Provider: 04:59 Initial Comments PT ARRIVES VIA EMS FROM [address]--WALKS IN ON HIS OWN WITHOUT DIFFICULTY, WITH A LARGE DRINK IN HAND PT STATES ABOUT AN HOUR AGO, HE WOKE UP WITH NECK SPASMS ( CHRONIC PROBLEM) AND THEN STARTED DRINKING SOME WATER, AND IMMEDIATELY BEGAN HAVING PAIN AND SWELLING IN STOMACH HAS HAD NAUSEA AND VOMITED X 1 HAD NORMAL BM YESTERDAY. STATES IT FEELS LIKE HE NEEDS TO HAVE A BM, BUT CANNOT. STATES HE HAS NOT BEEN PASSING GAS. . NO PROBLEMS URINATING NO FEVER NO HISTORY OF SIMILAR NO PRIOR ABDOMINAL SURGERIES OR GI PROBLEMS LAST FOOD INTAKE WAS 2100 --ATE AT [employer]--STATES HE FELT FINE AT THAT TIME. STATES HE DRANK ALCOHOL "FOR THE FIRST TIME IN A LONG TIME" LAST NIGHT/TONIGHT--DRANK A PINT OF HARD LIQUOR PCP: NONE Allergies and Home Medications Allergies Coded Allergies: No Known Drug Allergies (Unverified , 05/31/15) Home Medications Cyclobenzaprine HCl 10 Mg Tablet, 10 MG PO Q8H PRN for SPASMS Prescribed by: PAULA GRAVES on 08/14/202311 Cyclobenzaprine HCl 10 Mg Tablet, 10 MG PO Q8H PRN for SPASMS Prescribed by: JEAN EUGENE on 09/04/20 1800 Hydrocodone/Acetaminophen 1 Each Tablet, 1 EACH PO Q4-6HR PRN for PAIN-MODERATE Prescribed by: MITRA MACHADO on 11/21/19 1339 Ibuprofen 800 Mg Tablet, 800 MG PO Q8H PRN for PAIN-MILD Prescribed by: MITRA MACHADO on 09/03/19 1709 Methocarbamol 750 Mg Tablet, 750 MG PO Q6H PRN for PAIN-MODERATE (5-7) Prescribed by: MITRA MACHADO on 11/21/19 1338 Ondansetron 4 Mg Tab.rapdis, 4 MG SL Q4H PRN for NAUSEA/VOMITING Prescribed by: PAULA GRAVES on 08/14/20 2312 Prednisone 20 Mg Tab, 40 MG PO DAILY Prescribed by: MITRA MACHADO on 11/21/19 1338 Review of Systems Review of Systems Constitutional: no symptoms reported Respiratory: No Symptoms Reported Cardiovascular: No Symptoms Reported Gastrointestinal: See HPI, Abdominal Pain, Nausea, Vomiting Genitourinary: No Symptoms Reported Musculoskeletal: see HPI Skin: no symptoms reported Psychiatric/Neurological: No Symptoms Reported Endocrine: No Symptoms Reported Hematologic/Lymphatic: No Symptoms Reported Past Rdwqypq-Wkqgdj-Ibvpso Hx Past Med/Social Hx: Reviewed and Corrections made Patient Social History Alcohol Use: Occasionally Uses Number of Drinks Today: AA Alcohol Beverage of Choice: Beer Drug of Choice: THC, METH Smoking Status: Current Everyday Smoker (1 PPD) Type Used: Cigarettes 2nd Hand Smoke Exposure: Yes Recent Hopitalizations: No Substance type: Methamphetamine, Marijuana Immunizations Up To Date Tetanus Booster (TDap): Unknown Seasonal Allergies Seasonal Allergies: No Past Medical History Surgeries: Yes (LEFT HAND/FINGER STAPH INF SURGERY) Orthopedic Respiratory: No Cardiac: Yes (PERICARDITIS) Neurological: Yes Headaches /Migraines Genitourinary: No Gastrointestinal: No Musculoskeletal: Yes (chronic neck pain) Endocrine: No HEENT: No Cancer: No Psychosocial: Yes (BENZODIAZEPINE OVERDOSE 05/2020) Integumentary: Yes (STAPH INFECTION) Blood Disorders: No Family Medical History No Pertinent Family Hx SOCIAL HISTORY: -ETOH--OCCASIONAL USE, HEAVY USE AT TIMES -DRUGS--+ METHAMPHETAMINES, THC. OVERDOSE ON BENZODIAZEPINE 05/2020--WAS INTUBATED, THEN LEFT AMA WHEN HE WOKE UP -SMOKES 1 PPD PT WITH MULTIPLE VISITS FOR CHRONIC PAIN COMPLAINTS-ESPECIALLY NECK/BACK PAIN, HEADACHES Physical Exam Vital Signs Vital Signs - First Documented 09/27/20 05:01 Temp 36.4 Pulse 111 Resp 18 B/P (MAP) 141/93 (109) Pulse Ox 96 O2 Delivery Room Air Capillary Refill : Height/Weight/BMI Height: 6'3.00" Weight: 220lbs. oz. 99.501759rt; 26.00 BMI Method:Stated General Appearance: WD/WN, no apparent distress, other (WALKS UPRIGHT AND MOVES WITHOUT DIFFICULTY. KEEPS EYES CLOSED FOR ENTIRE EXAM) Respiratory: normal breath sounds, no respiratory distress, no accessory muscle use Cardiovascular: no murmur, tachycardia Gastrointestinal: abnormal bowel sounds ([id number]-[id number]/TYMPANIC BOWEL SOUNDS), distended (ABDOMEN IS VERY FIRM AND DISTENDED), tenderness (DIFFUSE TENDERNESS BUT IS MOST TENDER TO LEFT MID ABDOMEN) Rectal: No decreased tone, No hemorrhoids; other (ATTEMPT TO DO DIGITAL RECTAL EXAM--UNABLE TO COMPLETE DUE TO PT UNCOOPERATIVENESS. VERY STRONG RECTAL TONE. NO GROSS BLOOD ON EXAM. ) Extremities: normal inspection Neurologic/Psychiatric: no motor/sensory deficits, alert, oriented x 3 Skin: normal color (PT IS BLACK), warm/dry, tattoos/piercings (TATTOOS), other (MULTIPLE SCARS TO MID UPPER CHEST) Procedures/Interventions Date of ETT Placement: May 14, 2020 Time of ETT Placement: 1320 Progress/Results/Core Measures Results/Orders Lab Results Laboratory Tests Test 09/27/20 05:06 09/27/20 05:10 09/27/20 05:15 Range/Units White Blood Count 8.0 4.3-11.0 10^3/uL Red Blood Count 4.54 4.30-5.52 10^6/uL Hemoglobin 12.9 L 13.3-17.7 g/dL Hematocrit 39 L 40-54 % Mean Corpuscular Volume 87 80-99 fL Mean Corpuscular Hemoglobin 28 25-34 pg Mean Corpuscular Hemoglobin Concent 33 32-36 g/dL Red Cell Distribution Width 14.6 H 10.0-14.5 % Platelet Count 287 130-400 10^3/uL Mean Platelet Volume 8.9 L 9.0-12.2 fL Immature Granulocyte % (Auto) 0 % Neutrophils (%) (Auto) 38 L 42-75 % Lymphocytes (%) (Auto) 46 H 12-44 % Monocytes (%) (Auto) 12 0-12 % Eosinophils (%) (Auto) 3 0-10 % Basophils (%) (Auto) 1 0-10 % Neutrophils # (Auto) 3.1 1.8-7.8 10^3/uL Lymphocytes # (Auto) 3.7 1.0-4.0 10^3/uL Monocytes # (Auto) 0.9 0.0-1.0 10^3/uL Eosinophils # (Auto) 0.2 0.0-0.3 10^3/uL Basophils # (Auto) 0.1 0.0-0.1 10^3/uL Immature Granulocyte # (Auto) 0.0 0.0-0.1 10^3/uL Sodium Level 131 L 135-145 MMOL/L Potassium Level 4.9 3.6-5.0 MMOL/L Chloride Level 97 L 98-107 MMOL/L Carbon Dioxide Level 23 21-32 MMOL/L Anion Gap 11 5-14 MMOL/L Blood Urea Nitrogen 10 7-18 MG/DL Creatinine 1.05 0.60-1.30 MG/DL Estimat Glomerular Filtration Rate > 60 BUN/Creatinine Ratio 10 Glucose Level 84 70-105 MG/DL Calcium Level 8.6 8.5-10.1 MG/DL Corrected Calcium 8.4 L 8.5-10.1 MG/DL Magnesium Level 2.1 1.6-2.4 MG/DL Total Bilirubin 0.4 0.1-1.0 MG/DL Aspartate Amino Transf (AST/SGOT) 38 H 5-34 U/L Alanine Aminotransferase (ALT/SGPT) 51 0-55 U/L Alkaline Phosphatase 63 40-136 U/L Total Protein 6.8 6.4-8.2 GM/DL Albumin 4.3 3.2-4.5 GM/DL Amylase Level 75 25-125 U/L Lipase 40 8-78 U/L Serum Alcohol < 10 <10 MG/DL Urine Color YELLOW Urine Clarity SL CLOUDY Urine pH 5.5 5-9 Urine Specific [place] 1.010 L 1.016-1.022 Urine Protein NEGATIVE NEGATIVE Urine Glucose (UA) NEGATIVE NEGATIVE Urine Ketones NEGATIVE NEGATIVE Urine Nitrite NEGATIVE NEGATIVE Urine Bilirubin NEGATIVE NEGATIVE Urine Urobilinogen 0.2 < = 1.0 MG/DL Urine Leukocyte Esterase NEGATIVE NEGATIVE Urine RBC (Auto) NEGATIVE NEGATIVE Urine RBC NONE /HPF Urine WBC NONE /HPF Urine Squamous Epithelial Cells RARE /HPF Urine Crystals NONE /LPF Urine Bacteria NEGATIVE /HPF Urine Casts NONE /LPF Urine Mucus NEGATIVE /LPF Urine Culture Indicated NO Urine Opiates Screen NEGATIVE NEGATIVE Urine Oxycodone Screen NEGATIVE NEGATIVE Urine Methadone Screen NEGATIVE NEGATIVE Urine Propoxyphene Screen NEGATIVE NEGATIVE Urine Barbiturates Screen NEGATIVE NEGATIVE Ur Tricyclic Antidepressants Screen NEGATIVE NEGATIVE Urine Phencyclidine Screen NEGATIVE NEGATIVE Urine Amphetamines Screen POSITIVE H NEGATIVE Urine Methamphetamines Screen POSITIVE H NEGATIVE Urine Benzodiazepines Screen NEGATIVE NEGATIVE Urine Cocaine Screen NEGATIVE NEGATIVE Urine Cannabinoids Screen POSITIVE H NEGATIVE Prothrombin Time 12.5 12.2-14.7 SEC INR Comment 0.9 0.8-1.4 Activated Partial Thromboplast Time 32 24-35 SEC My Orders Orders - ABDULLAHI ORNELAS DO Ed Iv/Invasive Line Start (09/27/20 05:08) Monitor-Rhythm Ecg Trace Only (09/27/20 05:08) Alcohol (09/27/20 05:08) Amylase (09/27/20 05:08) Cbc With Automated Diff (09/27/20 05:08) Comprehensive Metabolic Panel (09/27/20 05:08) Drug Screen Stat (Urine) (09/27/20 05:08) Lipase (09/27/20 05:08) Magnesium (09/27/20 05:08) Protime With Inr (09/27/20 05:08) Partial Thromboplastin Time (09/27/20 05:08) Ua Culture If Indicated (09/27/20 05:08) Acute Abd Series (09/27/20 05:08) Ct Abdomen/Pelvis W (09/27/20 05:08) Ondansetron Injection (Zofran Injectio (09/27/20 05:15) Ed Iv/Invasive Line Start (09/27/20 05:08) Lactated Ringers (Lr 1000 Ml Iv Solution (09/27/20 05:15) Ondansetron Injection (Zofran Injectio (09/27/20 05:07) Lactated Ringers (Lr 1000 Ml Iv Solution (09/27/20 05:07) Iohexol Injection (Omnipaque 350 Mg/Ml 1 (09/27/20 05:45) Received Contrast (Hold Metformin- Contr (09/27/20 05:45) Sodium Chloride Flush (Catheter Flush Sy (09/27/20 05:45) Ns (Ivpb) (Sodium Chloride 0.9% Ivpb Bag (09/27/20 05:45) Fentanyl Injection (Sublimaze Injection (09/27/20 06:00) Medications Given in ED Current Medications Medications Dose Ordered Sig/Abner Route Start Time Stop Time Status Last Admin Dose Admin Fentanyl Citrate 50 mcg ONCE ONCE IVP 09/27/20 06:00 09/27/20 06:01 DC 09/27/20 05:54 50 MCG Iohexol 100 ml ONCE ONCE IV 09/27/20 05:45 09/27/20 05:46 DC 09/27/20 05:58 100 ML Lactated Ringer's 1,000 ml @ 0 mls/hr Q0M ONCE IV 09/27/20 05:15 09/27/20 05:24 DC 09/27/20 05:13 0 MLS/HR Ondansetron HCl 4 mg ONCE ONCE IVP 09/27/20 05:15 09/27/20 05:24 DC 09/27/20 05:14 4 MG Sodium Chloride 10 ml NEEDED PRN IV 09/27/20 05:45 09/27/20 05:58 10 ML Sodium Chloride 100 ml ONCE ONCE IV 09/27/20 05:45 09/27/20 05:46 DC 09/27/20 05:58 80 ML Vital Signs/I&O 09/27/20 05:01 Temp 36.4 Pulse 111 Resp 18 B/P (MAP) 141/93 (109) Pulse Ox 96 O2 Delivery Room Air Progress Progress Note : Progress Note GIVEN IV FLUIDS AND ZOFRAN AND FENTANYL 0625--PT STATES HE DID PASS A SMALL AMOUNT OF STOOL AND A LITTLE BIT OF GAS WHEN HE WENT TO BATHROOM JUST NOW. Diagnostic Imaging Comments CT ABDOMEN/PELVIS--PER RADIOLOGIST REPORT AT 0605. ALSO HAD A SIMILAR REPORT VIA [facility] VIA FAX AT 0613 PROCEDURE: CT abdomen and pelvis with contrast. TECHNIQUE: Multiple contiguous axial images were obtained through the abdomen and pelvis after administration of intravenous contrast. Auto Exposure Controls were utilized during the CT exam to meet ALARA standards for radiation dose reduction. All CT scans use one or more of the following dose optimizing techniques: automated exposure control, MA and/or KvP adjustment based on patient size and exam type or iterative reconstruction. INDICATION: Abdominal pain with nausea and vomiting and bloating for one day. No prior studies are available for comparison. ABDOMEN XRAYS--PER RADIOLOGIST REPORT AT 0608 FINDINGS: Heart size is within normal limits. Pulmonary vascularity is at the upper limits of normal. No consolidation or pneumothorax is seen. There is diffuse gaseous distention and dilatation of colon with several air-fluid levels present. Gas does, however reach the level of the rectum. No free intraperitoneal gas or pneumatosis is identified. There is no evidence of pathologic abdominal calcification. IMPRESSION: Findings are most suggestive of colonic ileus and clinical correlation is recommended. The lung bases are clear. Liver and gallbladder are unremarkable. Pancreas and spleen are unremarkable. No adrenal mass is detected. No renal calculi are seen. Aorta is nonaneurysmal. There is diffuse distention to the colon. There is large amount of stool throughout the colon and rectum. No wall thickening or obstructing lesion is identified. Small bowel appears to be nondilated. There is no free fluid or fluid collection. Bladder and prostate are unremarkable. IMPRESSION: Diffuse fluid and stool distention of the colon without evidence of obstructing lesion suggestive of constipation. No other significant abnormalities detected. Reviewed: Reviewed by Me Departure Communication (Admissions) 06--SPOKE WITH DR. HELLER, HE WILL REVIEW CT AND XRAYS AND CALL BACK. 06--SPOKE WITH DR. HELLER, AGREES WITH RADIOLOGIST REPORTS OF NO OBSTRUCTION. HE ADVISES ENEMAS AND FOLLOW UP IN OFFICE IF SYMPTOMS PERSIST. Impression Primary Impression: COLONIC ILEUS Additional Impression: Illicit drug use Disposition: HOME, SELF-CARE Condition: Stable Departure-Patient Inst. Referrals: ALEJANDRO HELLER DO NO,LOCAL PHYSICIAN (PCP) Primary Care Physician Patient Instructions: Constipation, Adult (DC) Add. Discharge Instructions: CLEAR LIQUIDS ONLY UNTIL YOU HAVE MOVED YOUR BOWELS AND YOUR PAIN IS GONE--WA TER, BROTH, JELLO, GATORADE NO FOOD UNTIL YOU HAVE CLEARED YOUR BOWELS. FLEET'S ENEMAS AND DULCLOAX SUPPOSITORIES UNTIL YOUR STOOLS ARE CLEAR TAKE MIRALAX DAILY FOLLOW UP WITH DR. HELLER IF SYMPTOMS PERSIST All discharge instructions reviewed with patient and/or family. Voiced understanding. ABDULLAHI ORNELAS DO Sep 27, 2020 05:10
[2020-09-27] MEDS ORDERED: ONDANSETRON 4 MG/2 ML (SDV) Z0FRAN IVP ONE (05:15)
[2020-09-27 05:16] LABS: BASOPHILS # (AUTO) 0.1 10^3/uL (0.0-0.1); BASOPHILS % (AUTO) 1 % (0-10); EOSINOPHILS # (AUTO) 0.2 10^3/uL (0.0-0.3); EOSINOPHILS % (AUTO) 3 % (0-10); HEMATOCRIT 39 % (40-54); HEMOGLOBIN 12.9 g/dL (13.3-17.7); LYMPHOCYTES # (AUTO) 3.7 10^3/uL (1.0-4.0); LYMPHOCYTES % (AUTO) 46 % (12-44); MEAN CORPUSCULAR HEMOGLOBIN 28 pg (25-34); MEAN CORPUSCULAR HGB CONC 33 g/dL (32-36); MEAN CORPUSCULAR VOLUME 87 fL (80-99); MEAN PLATELET VOLUME 8.9 fL (9.0-12.2); MONOCYTES # (AUTO) 0.9 10^3/uL (0.0-1.0); MONOCYTES % (AUTO) 12 % (0-12); NEUTROPHILS # (AUTO) 3.1 10^3/uL (1.8-7.8); NEUTROPHILS % (AUTO) 38 % (42-75); PLATELET COUNT 287 10^3/uL (130-400)
[2020-09-27 05:26] LABS: BILIRUBIN,URINE NEGATIVE (NEGATIVE); CLARITY,URINE SL CLOUDY; COLOR,URINE YELLOW; GLUCOSE, URINE (UA) NEGATIVE (NEGATIVE); KETONES,URINE NEGATIVE (NEGATIVE); LEUKOCYTE ESTERASE ,URINE NEGATIVE (NEGATIVE); NITRITE,URINE NEGATIVE (NEGATIVE); PH,URINE 5.5 (5-9); PROTEIN,URINE NEGATIVE (NEGATIVE)
[2020-09-27 05:33] LABS: BACTERIA,URINE NEGATIVE /HPF; SQUAMOUS EPITHELIAL CELL,UR RARE /HPF
[2020-09-27 05:37] LABS: INR 0.9 (0.8-1.4); PROTHROMBIN TIME PATIENT 12.5 SEC (12.2-14.7)
[2020-09-27 05:39] LABS: ALBUMIN 4.3 GM/DL (3.2-4.5); CHLORIDE 97 MMOL/L (98-107); POTASSIUM 4.9 MMOL/L (3.6-5.0); SODIUM 131 MMOL/L (135-145)
[2020-09-27 05:41] LABS: AMYLASE 75 U/L (25-125); CALCIUM 8.6 MG/DL (8.5-10.1)
[2020-09-27 05:42] LABS: GLUCOSE 84 MG/DL (70-105); TOTAL PROTEIN 6.8 GM/DL (6.4-8.2)
[2020-09-27 05:43] LABS: CARBON DIOXIDE 23 MMOL/L (21-32)
[2020-09-27 05:44] LABS: BILIRUBIN,TOTAL 0.4 MG/DL (0.1-1.0)
[2020-09-27 05:45] LABS: ALKALINE PHOSPHATASE 63 U/L (40-136)
[2020-09-27] MEDS ORDERED: NS 100 ML (IVPB) BAG IV ONE (05:45)
[2020-09-27] MEDS ORDERED: CATHETER FLUSH 10 ML SYR IV PRN (05:45)
[2020-09-27] MEDS ORDERED: HOLD METFORMIN - RECEIVED CONTRAST 20 ML VIAL IV SCH (05:45)
[2020-09-27] MEDS ORDERED: IOHEXOL 350 MG/ML 100 ML (OMNIPAQUE 350) VIAL IV ONE (05:45)
[2020-09-27 05:46] LABS: CREATININE SERUM 1.05 MG/DL (0.60-1.30); GFR ESTIMATED > 60
[2020-09-27 05:47] LABS: BUN/CREATININE RATIO 10
[2020-09-27 05:48] LABS: ALANINE AMINOTRANSFERASE 51 U/L (0-55)
[2020-09-27 05:49] LABS: MAGNESIUM 2.1 MG/DL (1.6-2.4)
[2020-09-27 05:50] LABS: LIPASE 40 U/L (8-78)
[2020-09-27] MEDS ORDERED: fentaNYL INJ 100 MCG/2 ML AMP IVP ONE (06:00)
--- NOTE | 2020-09-27 06:02 | Diagnostic Imaging Report ---
PROCEDURE: CT abdomen and pelvis with contrast. TECHNIQUE: Multiple contiguous axial images were obtained through the abdomen and pelvis after administration of intravenous contrast. Auto Exposure Controls were utilized during the CT exam to meet ALARA standards for radiation dose reduction. All CT scans use one or more of the following dose optimizing techniques: automated exposure control, MA and/or KvP adjustment based on patient size and exam type or iterative reconstruction. INDICATION: Abdominal pain with nausea and vomiting and bloating for one day. No prior studies are available for comparison. The lung bases are clear. Liver and gallbladder are unremarkable. Pancreas and spleen are unremarkable. No adrenal mass is detected. No renal calculi are seen. Aorta is nonaneurysmal. There is diffuse distention to the colon. There is large amount of stool throughout the colon and rectum. No wall thickening or obstructing lesion is identified. Small bowel appears to be nondilated. There is no free fluid or fluid collection. Bladder and prostate are unremarkable. IMPRESSION: Diffuse fluid and stool distention of the colon without evidence of obstructing lesion suggestive of constipation. No other significant abnormalities detected. Dictated by: Dictated on workstation # [id number]
--- NOTE | 2020-09-27 06:05 | Diagnostic Imaging Report ---
INDICATION: Abdominal pain and bloating with emesis. Supine and upright views of the abdomen are obtained with single view of the chest. FINDINGS: Heart size is within normal limits. Pulmonary vascularity is at the upper limits of normal. No consolidation or pneumothorax is seen. There is diffuse gaseous distention and dilatation of colon with several air-fluid levels present. Gas does, however reach the level of the rectum. No free intraperitoneal gas or pneumatosis is identified. There is no evidence of pathologic abdominal calcification. IMPRESSION: Findings are most suggestive of colonic ileus and clinical correlation is recommended. Otherwise, no acute abnormality is detected. Dictated by: Dictated on workstation # [id number]
[2020-09-27 06:06] LABS: AMPHETAMINE SCREEN, URINE POSITIVE (NEGATIVE); BARBITURATE SCREEN URINE NEGATIVE (NEGATIVE); BENZODIAZEPINES SCREEN URINE NEGATIVE (NEGATIVE); CANNABINOID SCREEN, URINE POSITIVE (NEGATIVE); COCAINE SCREEN URINE NEGATIVE (NEGATIVE); METHADONE STAT NEGATIVE (NEGATIVE); METHAMPHETAMINE SCREEN URINE S POSITIVE (NEGATIVE); OPIATE SCREEN URINE NEGATIVE (NEGATIVE); OXYCODONE STAT NEGATIVE (NEGATIVE); PROPOXYPHENE STAT NEGATIVE (NEGATIVE); TRICYCLIC ANTIDEPRESSANTS SCRE NEGATIVE (NEGATIVE)
[2020-09-27 06:33] VITALS: BP 139/95
== END 2020-09-27 06:37 | disposition home or self-care (01) ==
LOC: EDUNIT# 04:58 → ER 05:00
DX: K56.7 Ileus, unspecified (principal); F19.90 Other psychoactive substance use, unspecified, uncomplicated; I10 Essential (primary) hypertension; G89.29 Other chronic pain; M54.2 Cervicalgia; F17.210 Nicotine dependence, cigarettes, uncomplicated; Z79.52 Long term (current) use of systemic steroids; Z79.891 Long term (current) use of opiate analgesic
CPT/HCPCS: 74022; 74177; 80053; 80306; 81000; 82150; 83690; 83735; 85025; 85610; 85730; 93041; G0480; 36415; 80320

== ENCOUNTER 2021-01-31 01:42 | Emergency (ER) | payer SELFPAY ==
[~2021-01-31] VITALS: Ht 190.5 cm; Wt 99.7 kg
[~2021-01-31 01:42] MED LIST changes: -SULF1TAB35 PO; +SULF1TAB38 PO
[2021-01-31 01:58] VITALS: BP 139/81
[2021-01-31] MEDS ORDERED: KETOROLAC 30 MG/ML VIAL IM ONE (02:15)
[2021-01-31] MEDS ORDERED: ORPHENADRINE 60 MG/2 ML (NORFLEX) AMP (ED ONLY) IM ONE (02:15)
[2021-01-31] MEDS ORDERED: PRD20T PO (02:29)
[2021-01-31] MEDS ORDERED: CYCL10TA9 PO (02:29)
--- NOTE | 2021-01-31 02:31 | ED General ---
General Chief Complaint: Upper Extremity Stated Complaint: SHOULDER PAIN Nursing Triage Note: TO ED VIA POV AND AMBULATORY TO ROOM 8 WITH C/O LEFT SHOULDER PAIN. STATES ONGOINH SINCE APPROX SEPTEMBER OF THIS YEAR. STATES WORSE PAIN TONIGHT AFTER CARRYING BACKPACK AND NOTICED "POPPING". DENIES INJURY. Source of Information: Patient Exam Limitations: No Limitations History of Present Illness Date Seen by Provider: Jan 31, 2021 Time Seen by Provider: 01:54 Initial Comments This 35-year-old gentleman presents to the emergency room with complaints of poorly defined left shoulder pain. He has tenderness along the medial edge of the scapula, and the deltoid, and the anterior shoulder. Pain sometimes radiates up the left lateral side of his neck. He has had visits to the ER in the past related to left-sided neck pain and muscle tension/spasm. He denies any specific injury. Last night he was unable to sleep because of the pain. He also reports increased pain with carrying a backpack. He has not taken any medications for the pain this morning. He rates the current pain as 4/10. He also complains that sometimes he feels the muscles in his lateral pectoralis are weak. Allergies and Home Medications Allergies Coded Allergies: No Known Drug Allergies (Unverified , 05/31/15) Home Medications Cyclobenzaprine HCl 10 Mg Tablet, 10 MG PO Q8H PRN for SPASMS Prescribed by: PAULA GRAVES on 08/14/20 2312 Cyclobenzaprine HCl 10 Mg Tablet, 10 MG PO Q8H PRN for SPASMS Prescribed by: JEAN EUGENE on 09/04/20 1800 Cyclobenzaprine HCl 10 Mg Tablet, 10 MG PO Q8H PRN for SPASMS Prescribed by: PAULA GRAVES on 01/31/21 0229 Hydrocodone/Acetaminophen 1 Each Tablet, 1 EACH PO Q4-6HR PRN for PAIN-MODERATE Prescribed by: MITRA MACHADO on 11/21/19 1339 Ibuprofen 800 Mg Tablet, 800 MG PO Q8H PRN for PAIN-MILD Prescribed by: MITRA MACHADO on 09/03/19 1709 Methocarbamol 750 Mg Tablet, 750 MG PO Q6H PRN for PAIN-MODERATE (5-7) Prescribed by: MITRA MACHADO on 11/21/19 1338 Ondansetron 4 Mg Tab.rapdis, 4 MG SL Q4H PRN for NAUSEA/VOMITING Prescribed by: PAULA GRAVES on 08/14/20 2312 Prednisone 20 Mg Tab, 40 MG PO DAILY Prescribed by: MITRA MACHADO on 11/21/19 1338 Prednisone 20 Mg Tab, 20 MG PO DAILY Prescribed by: PAULA GRAVES on 01/31/21 0229 Patient Home Medication List Home Medication List Reviewed: Yes Review of Systems Review of Systems Constitutional: no symptoms reported EENTM: no symptoms reported Respiratory: no symptoms reported Cardiovascular: no symptoms reported Gastrointestinal: no symptoms reported Genitourinary: no symptoms reported Musculoskeletal: see HPI Skin: no symptoms reported Psychiatric/Neurological: See HPI Hematologic/Lymphatic: No Symptoms Reported Immunological/Allergic: no symptoms reported Past Ftwctqu-Nqvggo-Xngcui Hx Patient Social History Tobacco Use?: Yes Smoking Status: Current Everyday Smoker Substance use?: Yes Substance type: Marijuana Alcohol Use?: Yes Alcohol Frequency: Rarely Immunizations Up To Date Tetanus Booster (TDap): Unknown Seasonal Allergies Seasonal Allergies: No Past Medical History Surgeries: Yes (LEFT HAND/FINGER STAPH INF SURGERY) Orthopedic Respiratory: No Cardiac: Yes (PERICARDITIS) Neurological: Yes Headaches /Migraines Genitourinary: No Gastrointestinal: No Musculoskeletal: Yes (chronic neck pain) Endocrine: No HEENT: No Cancer: No Psychosocial: Yes (BENZODIAZEPINE OVERDOSE 05/2020) Integumentary: Yes (STAPH INFECTION) Blood Disorders: No Family Medical History No Pertinent Family Hx SOCIAL HISTORY: -ETOH--OCCASIONAL USE, HEAVY USE AT TIMES -DRUGS--+ METHAMPHETAMINES, THC. OVERDOSE ON BENZODIAZEPINE 05/2020--WAS INTUBATED, THEN LEFT AMA WHEN HE WOKE UP -SMOKES 1 PPD PT WITH MULTIPLE VISITS FOR CHRONIC PAIN COMPLAINTS-ESPECIALLY NECK/BACK PAIN, HEADACHES Physical Exam Vital Signs Vital Signs - First Documented 01/31/21 01:58 Temp 36.0 Pulse 109 B/P (MAP) 139/81 (100) O2 Delivery Room Air Capillary Refill : Height, Weight, BMI Height: 6'3.00" Weight: 220lbs. oz. 99.447093yv; 27.00 BMI Method:Stated General Appearance: No Apparent Distress, WD/WN HEENT: Normal ENT Inspection Neck: Normal Inspection, Other (Minimal tenderness in the left lateral musculature. No increase in symptoms with axial loading or neck rotation.) Respiratory: Lungs Clear, Normal Breath Sounds, No Accessory Muscle Use Cardiovascular: Regular Rate, Rhythm, No Edema, No Murmur Back: Normal Inspection, No Vertebral Tenderness Extremity: Normal Inspection, Normal Range of Motion, Other (Tenderness in the musculature medial to the left scapula, in the deltoid, and in the anterior shoulder. Range of motion or strength do not appear affected.) Neurologic/Psychiatric: Alert, Oriented x3, No Motor/Sensory Deficits, Normal Mood/Affect, therapist radiation II-XII Norm as Tested Skin: Normal Color, Warm/Dry Procedures/Interventions Date of ETT Placement: May 14, 2020 Time of ETT Placement: 1320 Progress/Results/Core Measures Suspected Sepsis SIRS Temperature: Pulse: 109 Respiratory Rate: Blood Pressure 139 /81 Mean: 100 Results/Orders My Orders Orders - PAULA SANABRIA MD Ketorolac Injection (Toradol Injection) (01/31/21 02:15) Orphenadrine Inj (Ed Only) (Norflex Inje (01/31/21 02:15) Medications Given in ED Vital Signs/I&O 01/31/21 01:58 Temp 36.0 Pulse 109 B/P (MAP) 139/81 (100) O2 Delivery Room Air Capillary Refill : Blood Pressure Mean: 100 Progress Note : Progress Note Patient was acutely treated with Toradol and Norflex. It is possible there is some degree of cervical radiculopathy given the nature and distribution of his symptoms. He was advised to follow-up with a primary care provider to discuss further treatment plan and evaluation. See discharge instructions for more dis cussion. Departure Impression Primary Impression: Left shoulder pain Qualified Codes: M25.512 - Pain in left shoulder; G89.29 - Other chronic pain Additional Impression: Neck pain on left side Disposition: 01 HOME, SELF-CARE Condition: Improved Departure-Patient Inst. Decision time for Depature: 02:26 Referrals: NO,LOCAL PHYSICIAN (PCP/Family) Primary Care Physician Patient Instructions: Shoulder Pain (DC) Add. Discharge Instructions: The exact cause of your pain is uncertain. It may be related to muscle strain and spasms and/or nerve impingement in your neck. Please follow-up with a primary care provider to discuss further treatment and work-up options which might include physical therapy, MRI of the neck, etc. In the meantime, use Tylenol and/or ibuprofen for pain. You may use ibuprofen 600 mg every 6 hours as needed and/or Tylenol (acetaminophen) up to 1000 mg every 6 hours as needed. The prednisone prescribed may help reduce inflammation and give you a longer lasting relief of pain. Gentle heat and gentle stretching may also help reduce your pain. Avoid activities that worsen the pain. You may use Flexeril (cyclobenzaprine) in the evenings to help your muscles relax. Call with questions or concerns. Return to the ER if you have worsening symptoms. All discharge instructions reviewed with patient and/or family. Voiced understanding. Scripts Cyclobenzaprine HCl (Cyclobenzaprine HCl) 10 Mg Tablet 10 MG PO Q8H PRN for SPASMS, #10 TAB 0 Refills Prov: PAULA SANABRIA MD 01/31/21 Prednisone (Prednisone) 20 Mg Tab 20 MG PO DAILY, #5 TAB 0 Refills Prov: PAULA SANABRIA MD 01/31/21 PAULA SANABRIA MD Jan 31, 2021 02:31
== END 2021-01-31 02:42 | disposition home or self-care (01) ==
LOC: EDUNIT# 01:42 → ER 01:47
DX: M25.512 Pain in left shoulder (principal); G89.29 Other chronic pain; M54.2 Cervicalgia; F17.200 Nicotine dependence, unspecified, uncomplicated; Z79.891 Long term (current) use of opiate analgesic; Z79.52 Long term (current) use of systemic steroids
CPT/HCPCS: 99284

== ENCOUNTER 2021-09-19 11:13 | Emergency (ER) | payer SELFPAY ==
[~2021-09-19] VITALS: Ht 190 cm; Wt 90.0 kg
[2021-09-19 11:13] VITALS: BP 143/91
[~2021-09-19 11:13] MED LIST changes: +CYCL10TA25 PO; -CYCL10TA9 PO
--- NOTE | 2021-09-19 11:21 | ED General ---
General Stated Complaint: L KNEE PAIN Source of Information: Patient Exam Limitations: No Limitations History of Present Illness Date Seen by Provider: Sep 19, 2021 Time Seen by Provider: 11:19 Initial Comments To ER by EMS with left knee pain with weightbearing. No known injury. No swelling. History of left knee pain many years ago. No fever no chills. He is from [place], he had an argument with his girlfriend yesterday and was in [place] overnight, [place] the park. Upon awakening after doing a lot of walking yesterday he had knee pain that prevented him from bearing weight on the left knee. Otherwise healthy takes no medications. Timing/Duration: 4-6 Hours Severity: Moderate Associated Systoms: Denies Symptoms Allergies and Home Medications Allergies Coded Allergies: No Known Drug Allergies (Unverified , 05/31/15) Patient Home Medication List Home Medication List Reviewed: Yes Cyclobenzaprine HCl (Cyclobenzaprine HCl) 10 Mg Tablet, 10 MG PO Q8H PRN for SPASMS Prescribed by: PAULA GRAVES on 08/14/20 231 Cyclobenzaprine HCl (Cyclobenzaprine HCl) 10 Mg Tablet, 10 MG PO Q8H PRN for SPASMS Prescribed by: JEAN EUGENE on 09/04/20 1800 Cyclobenzaprine HCl (Cyclobenzaprine HCl) 10 Mg Tablet, 10 MG PO Q8H PRN for SPASMS Prescribed by: PAULA GRAVES on 01/31/21 0229 Hydrocodone/Acetaminophen (Lorcet 5-325 mg Tablet) 1 Each Tablet, 1 EACH PO Q4- 6HR PRN for PAIN-MODERATE Prescribed by: MITRA MACHADO on 11/21/19 1339 Ibuprofen (Ibuprofen) 800 Mg Tablet, 800 MG PO Q8H PRN for PAIN-MILD Prescribed by: MITRA MACHADO on 09/03/19 1709 Methocarbamol (Robaxin-750) 750 Mg Tablet, 750 MG PO Q6H PRN for PAIN-MODERATE (5-7) Prescribed by: MITRA MACHADO on 11/21/19 1338 Ondansetron (Ondansetron Odt) 4 Mg Tab.rapdis, 4 MG SL Q4H PRN for NAUSEA/VOM ITING Prescribed by: PAULA GRAVES on 08/14/20 231 Prednisone (Prednisone) 20 Mg Tab, 40 MG PO DAILY Prescribed by: MITRA MACHADO on 11/21/19 1338 Prednisone (Prednisone) 20 Mg Tab, 20 MG PO DAILY Prescribed by: PAULA GRAVES on 01/31/21 0229 Review of Systems Review of Systems Constitutional: see HPI EENTM: see HPI Respiratory: no symptoms reported Cardiovascular: no symptoms reported Genitourinary: no symptoms reported Musculoskeletal: see HPI Skin: no symptoms reported Psychiatric/Neurological: No Symptoms Reported Hematologic/Lymphatic: No Symptoms Reported Immunological/Allergic: no symptoms reported Past Zejrpmd-Rbvgxj-Fpcgzh Hx Immunizations Up To Date Tetanus Booster (TDap): Unknown Seasonal Allergies Seasonal Allergies: No Past Medical History Surgeries: Yes (LEFT HAND/FINGER STAPH INF SURGERY) Orthopedic Respiratory: No Cardiac: Yes (PERICARDITIS) Neurological: Yes Headaches /Migraines Genitourinary: No Gastrointestinal: No Musculoskeletal: Yes (chronic neck pain) Endocrine: No HEENT: No Cancer: No Psychosocial: Yes (BENZODIAZEPINE OVERDOSE 05/2020) Integumentary: Yes (STAPH INFECTION) Blood Disorders: No Family Medical History No Pertinent Family Hx SOCIAL HISTORY: -ETOH--OCCASIONAL USE, HEAVY USE AT TIMES -DRUGS--+ METHAMPHETAMINES, THC. OVERDOSE ON BENZODIAZEPINE 05/2020--WAS INTUBATED, THEN LEFT AMA WHEN HE WOKE UP -SMOKES 1 PPD PT WITH MULTIPLE VISITS FOR CHRONIC PAIN COMPLAINTS-ESPECIALLY NECK/BACK PAIN, HEADACHES Physical Exam Vital Signs Vital Signs - First Documented 09/19/21 11:13 Temp 36.3 Pulse 95 Resp 16 B/P (MAP) 143/91 (108) Pulse Ox 98 O2 Delivery Room Air Capillary Refill : Height, Weight, BMI Height: 6'3.00" Weight: 220lbs. oz. 99.467865cs; 27.00 BMI Method:Stated General Appearance: No Apparent Distress, WD/WN Eyes: Bilateral Eye Normal Inspection, Bilateral Eye PERRL, Bilateral Eye EOMI Neck: Full Range of Motion, Normal Inspection Respiratory: No Accessory Muscle Use, No Respiratory Distress Cardiovascular: Regular Rate, Rhythm, Normal Peripheral Pulses Gastrointestinal: Normal Bowel Sounds, Non Tender, Soft Extremity: Normal Capillary Refill, Normal Inspection, Other (no effusion, no swelling) Neurologic/Psychiatric: Alert, Oriented x3 Skin: Normal Color, Warm/Dry Procedures/Interventions Date of ETT Placement: May 14, 2020 Time of ETT Placement: 1320 Progress/Results/Core Measures Suspected Sepsis SIRS Temperature: Pulse: Respiratory Rate: Blood Pressure / Mean: Results/Orders My Orders Orders - MITRA MACHADO APRN Knee, Left, 3 Views (09/19/21 11:17) Acetaminophen Tablet (Tylenol Tablet) (09/19/21 11:30) Ibuprofen Tablet (Motrin Tablet) (09/19/21 11:30) Medications Given in ED Current Medications Medications Dose Ordered Sig/Abner Route Start Time Stop Time Status Last Admin Dose Admin Acetaminophen 1,000 mg ONCE ONCE PO 09/19/21 11:30 09/19/21 11:31 DC 09/19/21 11:31 1,000 MG Ibuprofen 600 mg ONCE ONCE PO 09/19/21 11:30 09/19/21 11:31 DC 09/19/21 11:31 600 MG Vital Signs/I&O 09/19/21 11:13 Temp 36.3 Pulse 95 Resp 16 B/P (MAP) 143/91 (108) Pulse Ox 98 O2 Delivery Room Air Capillary Refill : Departure Impression Primary Impression: Internal derangement of knee Disposition: HOME, SELF-CARE Condition: Stable Departure-Patient Inst. Decision time for Depature: 11:21 Referrals: NO,LOCAL PHYSICIAN (PCP) Primary Care Physician SHE SALAMANCA MD, TERRY D MD Patient Instructions: Internal Derangement of the Knee Add. Discharge Instructions: 1. Return to ER for any concerns 2. pain medication as directed 3. follow up with primary care or one of the physicians listed to discuss obtaining MRI of the knee to further evaluate the cause of your pain and subsequent treatment. MITRA MACHADO APRN Sep 19, 2021 11:21
[2021-09-19] MEDS ORDERED: ACETAMINOPHEN 500 MG TAB (TYLENOL) PO ONE (11:30)
[2021-09-19] MEDS ORDERED: IBUPROFEN 600 MG (MOTRIN) TAB PO ONE (11:30)
--- NOTE | 2021-09-19 11:45 | Diagnostic Imaging Report ---
INDICATION: Left lateral knee pain. TIME OF EXAM: 11:36 AM 3 views of the left knee were obtained. Alignment is normal. Joint spaces well maintained. Articular surfaces are smooth. No fracture, dislocation or effusion is seen. IMPRESSION: No acute bony abnormalities detected. Dictated by: Dictated on workstation # [id number]
== END 2021-09-19 11:52 | disposition home or self-care (01) ==
LOC: EDUNIT# 11:13 → ER 11:14
DX: M23.92 Unspecified internal derangement of left knee (principal)
CPT/HCPCS: 73562

== ENCOUNTER 2022-02-26 23:51 | Emergency (ER) | payer SELFPAY ==
[~2022-02-26] VITALS: Ht 190.5 cm; Wt 97.5 kg
--- NOTE | 2022-02-27 00:41 | ED General ---
General Chief Complaint: COVID19 Suspect/Confirmed Stated Complaint: SORE THROAT & NOSE STUFFY,CP Source of Information: Patient History of Present Illness Date Seen by Provider: Feb 27, 2022 Time Seen by Provider: 00:30 Initial Comments STATES HE "GOT CAUGHT IN THE STORM" TONIGHT AND BEGAN HAVING BODY ACHES, SORE THROAT, RUNNY NOSE ABOUT AN HOUR AGO CHEST HURTS TO BREATHE NO KNOWN FEVER NO SHORTNESS OF BREATH NO GI SYMPTOMS HAS NOT TAKEN ANYTHING FOR SYMPTOMS PT IS HOMELESS, HAS BEEN IN HALFWAY FOR THE LAST 48 HOURS, AND WAS JUST RELEASED EARLIER TODAY PT IS NOT COVID OR FLU VACCINATED DENIES ANY CHRONIC MEDICAL PROBLEMS PCP: NONE Allergies and Home Medications Allergies Coded Allergies: No Known Drug Allergies (Unverified , 05/31/15) Patient Home Medication List Home Medication List Reviewed: Yes Cyclobenzaprine HCl (Cyclobenzaprine HCl) 10 Mg Tablet, 10 MG PO Q8H PRN for SPASMS Prescribed by: PAULA GRAVES on 08/14/202311 Cyclobenzaprine HCl (Cyclobenzaprine HCl) 10 Mg Tablet, 10 MG PO Q8H PRN for SPASMS Prescribed by: JEAN EUGENE on 09/04/20 1800 Cyclobenzaprine HCl (Cyclobenzaprine HCl) 10 Mg Tablet, 10 MG PO Q8H PRN for SPASMS Prescribed by: PAULA GRAVES on 01/31/21 0229 Hydrocodone/Acetaminophen (Lorcet 5-325 mg Tablet) 1 Each Tablet, 1 EACH PO Q4- 6HR PRN for PAIN-MODERATE Prescribed by: MITRA MACHADO on 11/21/19 133 Ibuprofen (Ibuprofen) 800 Mg Tablet, 800 MG PO Q8H PRN for PAIN-MILD Prescribed by: MITRA MACHADO on 09/03/19 1709 Methocarbamol (Robaxin-750) 750 Mg Tablet, 750 MG PO Q6H PRN for PAIN-MODERATE (5-7) Prescribed by: MITRA MACHADO on 11/21/19 133 Ondansetron (Ondansetron Odt) 4 Mg Tab.rapdis, 4 MG SL Q4H PRN for NAUSEA/VOMITING Prescribed by: PAULA GRAVES on 08/14/20 231 Prednisone (Prednisone) 20 Mg Tab, 40 MG PO DAILY Prescribed by: MITRA MACHADO on 11/21/19 1338 Prednisone (Prednisone) 20 Mg Tab, 20 MG PO DAILY Prescribed by: PAULA GRAVES on 01/31/21 0229 Review of Systems Review of Systems Constitutional: see HPI, malaise EENTM: see HPI, nose congestion, throat pain Respiratory: see HPI; No short of breath Cardiovascular: see HPI Musculoskeletal: see HPI (BODY ACHES) Psychiatric/Neurological: Headache Past Dccavrm-Jodavo-Ujfoli Hx Patient Social History Tobacco Use?: Yes Tobacco type used: Cigarettes Smoking Status: Current Everyday Smoker Substance use?: Yes Substance type: Methamphetamine, Marijuana Substance frequency: Daily Alcohol Use?: Yes Alcohol type: Beer, Hard Liquor Immunizations Up To Date Tetanus Booster (TDap): Unknown Seasonal Allergies Seasonal Allergies: No Past Medical History Surgeries: Yes (LEFT HAND/FINGER STAPH INF SURGERY) Orthopedic Respiratory: No Cardiac: Yes (PERICARDITIS) Pericarditis Neurological: Yes Headaches /Migraines Genitourinary: No Gastrointestinal: No Musculoskeletal: Yes (chronic neck pain) Endocrine: No HEENT: No Cancer: No Psychosocial: Yes (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 OVERDOSE ON BENZODIAZEPINES 05/2020--WAS INTUBATED, THEN LEFT AMA WHEN HE WOKE UP -SMOKES 1 PPD PT WITH MULTIPLE VISITS FOR CHRONIC PAIN COMPLAINTS-ESPECIALLY NECK/BACK PAIN, HEADACHES Physical Exam Vital Signs Vital Signs - First Documented 02/27/22 00:20 Temp 36.8 Pulse 73 Resp 18 B/P (MAP) 156/100 (118) Pulse Ox 100 Capillary Refill : Height, Weight, BMI Height: 6'3.00" Weight: 220lbs. oz. 99.432460ls; 24.00 BMI Method:Stated General Appearance: No Apparent Distress, WD/WN, Other (DOES NOT APPEAR ILL OR TO BE IN ANY DISCOMFORT OR DISTRESS. ) HEENT: PERRL/EOMI, TMs Normal, Normal ENT Inspection, Pharynx Normal Neck: Normal Inspection Respiratory: Normal Breath Sounds, No Accessory Muscle Use, No Respiratory Distress Cardiovascular: Regular Rate, Rhythm, No Edema, No JVD, No Murmur, Normal Peripheral Pulses Gastrointestinal: Non Tender, Soft Back: No CVA Tenderness Extremity: Normal Inspection, No Pedal Edema Neurologic/Psychiatric: Alert, Oriented x3, No Motor/Sensory Deficits, Normal Mood/Affect, mirror machine feeder II-XII Norm as Tested Skin: Normal Color (PT IS BLACK), Warm/Dry Procedures/Interventions Date of ETT Placement: May 14, 2020 Time of ETT Placement: 1320 Progress/Results/Core Measures Suspected Sepsis SIRS Temperature: Pulse: Respiratory Rate: Blood Pressure / Mean: Results/Orders Lab Results Laboratory Tests Test 02/27/22 00:23 Range/Units Influenza Type A (RT-PCR) Not Detected Not Detecte Influenza Type B (RT-PCR) Not Detected Not Detecte SARS-CoV-2 RNA (RT-PCR) Not Detected Not Detecte Group A Streptococcus Screen NEGATIVE NEGATIVE My Orders Orders - ABDULLAHI ORNELAS DO Rapid Strep A Screen (02/27/22 00:31) Covid 19 Inhouse Test (02/27/22 00:31) Influenza A And B By Pcr (02/27/22 00:31) Isolation Central Supply Req (02/27/22 00:31) Vital Signs/I&O 02/27/22 00:20 Temp 36.8 Pulse 73 Resp 18 B/P (MAP) 156/100 (118) Pulse Ox 100 Capillary Refill : Progress Note : Progress Note PPE WORN COVID AND FLU TESTING DONE PT HAD NO COMPLAINTS FOR ENTIRE ER STAY, AND SLEPT FOR MOST OF ER STAY NO COUGH NO DYSPNEA NO HYPOXIA NO FEVER PT ADVISED OF IMPORTANCE OF RECHECK/RETESTING IN 2-3 DAYS. Departure Impression Primary Impression: COVID LIKE SYMPTOMS Disposition: 01 HOME, SELF-CARE Condition: Stable Departure-Patient Inst. Decision time for Depature: 01:15 Referrals: NO,LOCAL PHYSICIAN (PCP) Primary Care Physician [facility] Patient Instructions: COVID-19 Home Care/Discharge, COVID-19 Tests Add. Discharge Instructions: LOTS OF CLEAR LIQUIDS TYLENOL AND MOTRIN NEEDED FOR PAIN OR FEVER OVER THE COUNTER MEDICATIONS NEEDED FOR COUGH AND CONGESTION FOLLOW UP WITH [facility] IN 2-3 DAYS IF SYMPTOMS PERSIST All discharge instructions reviewed with patient and/or family. Voiced understanding. ABDULLAHI ORNELAS DO Feb 27, 2022 00:41
[2022-02-27 01:21] VITALS: BP 158/93
== END 2022-02-27 01:26 | disposition home or self-care (01) ==
LOC: EDUNIT# 23:51 → ER 23:55
DX: J02.9 Acute pharyngitis, unspecified (principal); F17.210 Nicotine dependence, cigarettes, uncomplicated; Z20.822 Contact with and (suspected) exposure to COVID-19; Z28.310 Unvaccinated for COVID-19
CPT/HCPCS: 87430; 87636

== ENCOUNTER 2022-04-04 08:23 | Emergency (ER) | payer SELFPAY ==
[~2022-04-04] VITALS: Ht 190.5 cm; Wt 90.7 kg
[2022-04-04] MEDS ORDERED: KETOROLAC 30 MG/ML VIAL IM ONE (08:45)
[2022-04-04] MEDS ORDERED: ONDANSETRON 4 MG (ZOFRAN) ORAL DISSOLVE TAB PO STA (08:45)
--- NOTE | 2022-04-04 08:49 | ED General ---
General Chief Complaint: Cough/Cold/Flu Symptoms Stated Complaint: BODYACHES,HEADACHE/ NECK/SHOULDER PAIN Nursing Triage Note: PT AMB TO RM 10 WITH COMPLAINT OF HEADACHE, NECK/SHOULDER PAIN, AND BODY ACHES THAT STARTED EARLY THIS MORNING. Source of Information: Patient Exam Limitations: No Limitations History of Present Illness Date Seen by Provider: Apr 04, 2022 Time Seen by Provider: 08:35 Initial Comments 36-year-old male presents to the emergency room with a chief complaint of mild to moderate headache, musculoskeletal pain, some nausea, mildly productive cough of green sputum. He is a smoker. No significant past medical history. Does not recall any sick contacts. Is not COVID vaccinated. Woke up with symptoms early this morning. Has not taken anything for them. No diarrhea, problems with dysuria, urgency or frequency. No rashes, swelling, tick bites. Endorses a little left lower quadrant abdominal discomfort. Has not had a bowel movement since yesterday. Slight runny nose. No earache or sore throat. All other review of systems reviewed and negative except as stated. Timing/Duration: 4-6 Hours Severity: Moderate Associated Systoms: Cough (greenish sputum (slight)), Headaches, Loss of Appetite, Malaise, Nausea/Vomiting (nausea), Other (LLQ abdominal discomfort) Allergies and Home Medications Allergies Coded Allergies: No Known Drug Allergies (Unverified , 05/31/15) Patient Home Medication List Home Medication List Reviewed: Yes Cyclobenzaprine HCl (Cyclobenzaprine HCl) 10 Mg Tablet, 10 MG PO Q8H PRN for SP ASMS Prescribed by: PAULA GRAVES on 08/14/20 2312 Cyclobenzaprine HCl (Cyclobenzaprine HCl) 10 Mg Tablet, 10 MG PO Q8H PRN for SPASMS Prescribed by: JEAN EUGENE on 09/04/20 1800 Cyclobenzaprine HCl (Cyclobenzaprine HCl) 10 Mg Tablet, 10 MG PO Q8H PRN for SPASMS Prescribed by: PAULA GRAVES on 01/31/21 0229 Hydrocodone/Acetaminophen (Lorcet 5-325 mg Tablet) 1 Each Tablet, 1 EACH PO Q4- 6HR PRN for PAIN-MODERATE Prescribed by: MITRA MACHADO on 11/21/19 1339 Ibuprofen (Ibuprofen) 800 Mg Tablet, 800 MG PO Q8H PRN for PAIN-MILD Prescribed by: MITRA MACHADO on 09/03/19 1709 Methocarbamol (Robaxin-750) 750 Mg Tablet, 750 MG PO Q6H PRN for PAIN-MODERATE (5-7) Prescribed by: MITRA MACHADO on 11/21/19 1338 Ondansetron (Ondansetron Odt) 4 Mg Tab.rapdis, 4 MG SL Q4H PRN for NAUSEA/VOMITING Prescribed by: PAULA GRAVES on 08/14/20 2312 Ondansetron (Ondansetron Odt) 4 Mg Tab.rapdis, 4 MG PO Q8H PRN for nausea Prescribed by: JINA ALVAREZ on 04/04/22 1015 Prednisone (Prednisone) 20 Mg Tab, 40 MG PO DAILY Prescribed by: MITRA MACHADO on 11/21/19 1338 Prednisone (Prednisone) 20 Mg Tab, 20 MG PO DAILY Prescribed by: PAULA GRAVES on 01/31/21 0229 Review of Systems Review of Systems Constitutional: see HPI EENTM: no symptoms reported Respiratory: cough, phlegm Cardiovascular: no symptoms reported Gastrointestinal: nausea Genitourinary: no symptoms reported Musculoskeletal: muscle cramps Skin: no symptoms reported Psychiatric/Neurological: Headache All Other Systems Reviewed Negative Unless Noted: Yes Past Vozvryt-Rlsfej-Vwwumy Hx Patient Social History Tobacco Use?: Yes Smoking Status: Current Everyday Smoker Use of E-Cig and/or Vaping dev: No Substance use?: Yes Substance type: Marijuana Alcohol Use?: No Pt feels they are or have been: No Immunizations Up To Date Tetanus Booster (TDap): Unknown Seasonal Allergies Seasonal Allergies: No Past Medical History Surgeries: Yes (LEFT HAND/FINGER STAPH INF SURGERY) Orthopedic Respiratory: No Cardiac: Yes (PERICARDITIS) Pericarditis Neurological: Yes Headaches /Migraines Genitourinary: No Gastrointestinal: No Musculoskeletal: Yes (chronic neck pain) Endocrine: No HEENT: No Cancer: No Psychosocial: Yes (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 OVERDOSE ON BENZODIAZEPINES 05/2020--WAS INTUBATED, THEN LEFT AMA WHEN HE WOKE UP -SMOKES 1 PPD PT WITH MULTIPLE VISITS FOR CHRONIC PAIN COMPLAINTS-ESPECIALLY NECK/BACK PAIN, HEADACHES Physical Exam Vital Signs Vital Signs - First Documented 04/04/22 08:32 Temp 36.6 Pulse 95 Resp 16 B/P (MAP) 136/66 (89) Pulse Ox 99 O2 Delivery Room Air Capillary Refill : Less Than 3 Seconds Height, Weight, BMI Height: 6'3.00" Weight: 220lbs. oz. 99.810569kl; 24.00 BMI Method:Stated General Appearance: No Apparent Distress, WD/WN Eyes: Bilateral Eye Normal Inspection, Bilateral Eye PERRL, Bilateral Eye EOMI HEENT: PERRL/EOMI, Pharynx Normal Neck: Normal Inspection, Supple Respiratory: Lungs Clear, Normal Breath Sounds, No Accessory Muscle Use, No Respiratory Distress Cardiovascular: Regular Rate, Rhythm, Normal Peripheral Pulses Gastrointestinal: Non Tender, Soft Extremity: Normal Inspection, Normal Range of Motion, Non Tender, No Calf Tenderness, No Pedal Edema Neurologic/Psychiatric: Alert, Oriented x3, No Motor/Sensory Deficits, Normal Mood/Affect, log hooker II-XII Norm as Tested Skin: Normal Color, Warm/Dry Procedures/Interventions Date of ETT Placement: May 14, 2020 Time of ETT Placement: 1320 Progress/Results/Core Measures Suspected Sepsis SIRS Temperature: Pulse: 95 Respiratory Rate: 16 Blood Pressure 136 /66 Mean: 89 Results/Orders Lab Results Laboratory Tests Test 04/04/22 08:37 04/04/22 08:52 Range/Units SARS-CoV-2 RNA (RT-PCR) Not Detected Not Detecte Glucometer 85 70-110 MG/DL My Orders Orders - JINA ALVAREZ MD Accucheck Stat ONCE (04/04/22 08:45) Covid 19 Inhouse Test (04/04/22 08:45) Isolation Central Supply Req (04/04/22 08:45) Ketorolac Injection (Toradol Injection) (04/04/22 08:45) Ondansetron Oral Dissolve Tab (Zofran (04/04/22 08:45) Medications Given in ED Current Medications Medications Dose Ordered Sig/Abner Route Start Time Stop Time Status Last Admin Dose Admin Ketorolac Tromethamine 30 mg ONCE ONCE IM 04/04/22 08:45 04/04/22 08:48 DC 04/04/22 08:55 30 MG Vital Signs/I&O 04/04/22 04/04/22 08:32 10:31 Temp 36.6 36.6 Pulse 95 95 Resp 16 16 B/P (MAP) 136/66 (89) 128/72 Pulse Ox 99 99 O2 Delivery Room Air Room Air Capillary Refill : Less Than 3 Seconds Blood Pressure Mean: 89 Counseling-Symptomatic: 3-10 Minutes Follow-up with PCP to: Discuss Further Options Departure Impression Primary Impression: Viral syndrome Additional Impression: Tobacco use Disposition: HOME, SELF-CARE Condition: Improved Departure-Patient Inst. Decision time for Depature: 10:13 Referrals: [facility] [place] PHYSICIAN (PCP) Primary Care Physician Patient Instructions: Quitting Smoking ED, Viral Syndrome (DC) Add. Discharge Instructions: Drink plenty of fluids to stay well-hydrated. Hbvl-lcv-ajvdxby Robitussin, NyQuil or DayQuil for congestion/cough. Generic ibuprofen 3 tablets every 6 hours which is 600 mg with food as needed for body aches Zofran 4 mg tablets, dissolvable, every 8 hours as needed for nausea. Return to the emergency room for worsening symptoms, shortness of breath, chest pain or high fever You should really quit smoking Scripts Ondansetron (Ondansetron Odt) 4 Mg Tab.rapdis 4 MG PO Q8H PRN for nausea, #10 TAB Prov: JINA ALVAREZ MD 04/04/22 JINA ALVAREZ MD Apr 04, 2022 08:49
[2022-04-04] MEDS ORDERED: ONDA4TAB11 PO (10:15)
[2022-04-04 10:31] VITALS: BP 128/72
== END 2022-04-04 10:31 | disposition home or self-care (01) ==
LOC: EDUNIT# 08:23 → ER 08:26
DX: B34.9 Viral infection, unspecified (principal); F17.210 Nicotine dependence, cigarettes, uncomplicated; Z20.822 Contact with and (suspected) exposure to COVID-19; Z28.310 Unvaccinated for COVID-19
CPT/HCPCS: 82947; 87636

== ENCOUNTER 2022-04-23 04:43 | Emergency (ER) | payer SELFPAY ==
[~2022-04-23 04:43] MED LIST changes: +ONDA4TAB11 PO
--- NOTE | 2022-04-23 05:38 | ED Abdominal Pain ---
General Chief Complaint: General Problems/Pain Stated Complaint: PT STS SPASMS IN LOWER REGION Nursing Triage Note: TO ED VIA POV AND AMBULATORY TO FT3 WITH C/O LEFT SIDE GROIN PAIN AND SPASMS. Source of Information: Patient (ABDULLAHI ORNELAS DO) History of Present Illness Date Seen by Provider: Apr 23, 2022 Time Seen by Provider: 05:25 Initial Comments PT ARRIVES ON HIS OWN. PT STATES FOR THE LAST YEAR, HE HAS BEEN HAVING INTERMITTENT PAIN IN RIGHT GROIN/INGUINAL AREA THAT RADIATES TO LEFT FLANK AND DOWN LEFT MEDIAL THIGH- DESCRIBES IT "SPASMS" AND RATES PAIN "15", BUT HAS NOT TAKEN ANYTHING FOR PAIN AT ANY TIME STATES THIS TIME IT STARTED YESTERDAY MORNING AND HAS PERSISTED STATES HE HAS SOME DIFFICULTY URINATING--HAS TO STRAIN--STATES "IT FEELS LIKE SOMETHING'S BLOCKED" NO NAUSEA/VOMITING HAD NORMAL BM YESTERDAY NO FEVER STATES SOMETIMES IT "GETS PUFFY" IN LEFT INGUINAL AREA HAS NOT SOUGHT CARE AT ANY TIME UNTIL NOW. PT IS ESTABLISHED WITH [facility], BUT HAS NOT BEEN THERE IN A LONG TIME. (ABDULLAHI ORNELAS DO) Allergies and Home Medications Allergies Coded Allergies: No Known Drug Allergies (Unverified , 05/31/15) Patient Home Medication List Home Medication List Reviewed: Yes (JINA ALVAREZ MD) Cyclobenzaprine HCl (Cyclobenzaprine HCl) 10 Mg Tablet, 10 MG PO Q8H PRN for SPASMS Prescribed by: PAULA GRAVES on 08/14/20 2312 Cyclobenzaprine HCl (Cyclobenzaprine HCl) 10 Mg Tablet, 10 MG PO Q8H PRN for SPASMS Prescribed by: JEAN EUGENE on 09/04/20 1800 Cyclobenzaprine HCl (Cyclobenzaprine HCl) 10 Mg Tablet, 10 MG PO Q8H PRN for SPASMS Prescribed by: PAULA GRAVES on 01/31/21 0229 Hydrocodone/Acetaminophen (Lorcet 5-325 mg Tablet) 1 Each Tablet, 1 EACH PO Q4- 6HR PRN for PAIN-MODERATE Prescribed by: MITRA MACHADO on 11/21/19 1339 Ibuprofen (Ibuprofen) 800 Mg Tablet, 800 MG PO Q8H PRN for PAIN-MILD Prescribed by: MITRA MACHADO on 09/03/19 1709 Methocarbamol (Robaxin-750) 750 Mg Tablet, 750 MG PO Q6H PRN for PAIN-MODERATE (5-7) Prescribed by: MITRA MACHADO on 11/21/19 1338 Ondansetron (Ondansetron Odt) 4 Mg Tab.rapdis, 4 MG SL Q4H PRN for NAUSEA/VOMITING Prescribed by: PAULA GRAVES on 08/14/20 2312 Ondansetron (Ondansetron Odt) 4 Mg Tab.rapdis, 4 MG PO Q8H PRN for nausea Prescribed by: JINA ALVAREZ on 04/04/22 1015 Prednisone (Prednisone) 20 Mg Tab, 40 MG PO DAILY Prescribed by: MITRA MACHADO on 11/21/19 1338 Prednisone (Prednisone) 20 Mg Tab, 20 MG PO DAILY Prescribed by: PAULA GRAVES on 01/31/21 0229 Review of Systems Review of Systems Constitutional: no symptoms reported Respiratory: No Symptoms Reported Cardiovascular: No Symptoms Reported Gastrointestinal: See HPI, Abdominal Pain Genitourinary: See HPI Musculoskeletal: see HPI, back pain Skin: no symptoms reported Psychiatric/Neurological: No Symptoms Reported Endocrine: No Symptoms Reported Hematologic/Lymphatic: No Symptoms Reported (ABDULLAHI ORNELAS DO) Past Lbbdmct-Qucdei-Heraip Hx Patient Social History Tobacco Use?: Yes Tobacco type used: Cigarettes Smoking Status: Current Everyday Smoker E-Cig or Vaping type used: Nicotine Substance use?: Yes Substance type: Amphetamines, Methamphetamine, Misuse of prescript meds, Marijuana Substance frequency: Daily Alcohol Use?: Yes Alcohol type: Beer, Hard Liquor Alcohol Frequency: Daily Pt feels they are or have been: No (ABDULLAHI ORNELAS DO) Immunizations Up To Date Tetanus Booster (TDap): Unknown Influenza Vaccine Up-to-Date: No; Not Current (ABDULLAHI ORNELAS DO) Seasonal Allergies Seasonal Allergies: No (ABDULLAHI ORNELAS DO) Past Medical History Surgeries: Yes (LEFT HAND/FINGER STAPH INF SURGERY) Orthopedic Respiratory: No Cardiac: Yes (PERICARDITIS) Pericarditis Neurological: Yes Headaches /Migraines Genitourinary: No Gastrointestinal: No Musculoskeletal: Yes (chronic neck pain) Endocrine: No HEENT: No Cancer: No Psychosocial: Yes (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 OVERDOSE ON BENZODIAZEPINES 05/2020--WAS INTUBATED, THEN LEFT AMA WHEN HE WOKE UP -SMOKES 1 PPD PT IS HOMELESS AND HAS HAD MULTIPLE INCARCERATIONS PT WITH MULTIPLE VISITS FOR CHRONIC PAIN COMPLAINTS-ESPECIALLY NECK/BACK PAIN, HEADACHES (ABDULLAHI ORNELAS DO) Physical Exam Vital Signs Vital Signs - First Documented 04/23/22 05:00 Temp 35.8 Pulse 109 Resp 16 B/P (MAP) 135/95 (108) Pulse Ox 100 O2 Delivery Room Air (JINA ALVAREZ MD) Vital Signs Capillary Refill : Less Than 3 Seconds (ABDULLAHI ORNELAS DO) Height/Weight/BMI Height: 6'3.00" Weight: 220lbs. oz. 99.314971dr; 24.00 BMI Method:Stated General Appearance: WD/WN, no apparent distress, thin, other (UNKEMPT, DIRTY, MALODOROUS. WALKS UPRIGHT AND MOVES WITHOUT DIFFICULTY. KEEPS BAUTISTA OF SWEATSHIRT PULLED OVER FACE AT ALL TIMES) Respiratory: normal breath sounds, no respiratory distress, no accessory muscle use Cardiovascular: regular rate, rhythm, no murmur Gastrointestinal: normal bowel sounds, soft, tenderness (LLQ, LEFT INGUINAL AREA AND LEFT FLANK) Genital/Rectal: tenderness, other (EXTENSIVE CHRONIC APPEARING FOLLICIULITIS OF PUBIC AREA, WITH MULTIPLE VERY HARD FOLLICLES. TENDERNESS TO RIGHT INGUINAL AREA. ? SLIGHT SWELLING TO LEFT INGUINAL CANAL/PUBIC AREA? ) Extremities: normal inspection Back: CVA tenderness (L) Neurologic/Psychiatric: convention services director II-XII nml as tested, no motor/sensory deficits, alert, oriented x 3 Skin: normal color (PT IS BLACK), warm/dry (ABDULLAHI ORNELAS DO) Procedures/Interventions Date of ETT Placement: May 14, 2020 Time of ETT Placement: 1320 (ABDULLAHI ORNELAS DO) Progress/Results/Core Measures Results/Orders Lab Results Laboratory Tests Test 04/23/22 05:35 04/23/22 06:04 Range/Units White Blood Count 6.2 4.3-11.0 10^3/uL Red Blood Count 5.35 4.30-5.52 10^6/uL Hemoglobin 14.6 13.3-17.7 g/dL Hematocrit 44 40-54 % Mean Corpuscular Volume 83 80-99 fL Mean Corpuscular Hemoglobin 27 25-34 pg Mean Corpuscular Hemoglobin Concent 33 32-36 g/dL Red Cell Distribution Width 12.9 10.0-14.5 % Platelet Count 307 130-400 10^3/uL Mean Platelet Volume 9.1 9.0-12.2 fL Immature Granulocyte % (Auto) 0 % Neutrophils (%) (Auto) 48 42-75 % Lymphocytes (%) (Auto) 37 12-44 % Monocytes (%) (Auto) 10 0-12 % Eosinophils (%) (Auto) 4 0-10 % Basophils (%) (Auto) 1 0-10 % Neutrophils # (Auto) 3.0 1.8-7.8 10^3/uL Lymphocytes # (Auto) 2.3 1.0-4.0 10^3/uL Monocytes # (Auto) 0.6 0.0-1.0 10^3/uL Eosinophils # (Auto) 0.3 0.0-0.3 10^3/uL Basophils # (Auto) 0.0 0.0-0.1 10^3/uL Immature Granulocyte # (Auto) 0.0 0.0-0.1 10^3/uL Sodium Level 139 135-145 MMOL/L Potassium Level 3.9 3.6-5.0 MMOL/L Chloride Level 104 98-107 MMOL/L Carbon Dioxide Level 25 21-32 MMOL/L Anion Gap 10 5-14 MMOL/L Blood Urea Nitrogen 14 7-18 MG/DL Creatinine 1.14 0.60-1.30 MG/DL Estimat Glomerular Filtration Rate 85 BUN/Creatinine Ratio 12 Glucose Level 87 70-105 MG/DL Calcium Level 9.4 8.5-10.1 MG/DL Corrected Calcium 9.1 8.5-10.1 MG/DL Total Bilirubin 0.8 0.1-1.0 MG/DL Aspartate Amino Transf (AST/SGOT) 23 5-34 U/L Alanine Aminotransferase (ALT/SGPT) 27 0-55 U/L Alkaline Phosphatase 60 40-136 U/L Total Protein 7.2 6.4-8.2 GM/DL Albumin 4.4 3.2-4.5 GM/DL Urine Color YELLOW Urine Clarity CLEAR Urine pH 6.0 5-9 Urine Specific [place] >=1.030 1.016-1.022 Urine Protein NEGATIVE NEGATIVE Urine Glucose (UA) NEGATIVE NEGATIVE Urine Ketones 1+ H NEGATIVE Urine Nitrite NEGATIVE NEGATIVE Urine Bilirubin 1+ H NEGATIVE Urine Urobilinogen 0.2 < = 1.0 MG/DL Urine Leukocyte Esterase TRACE H NEGATIVE Urine RBC (Auto) NEGATIVE NEGATIVE Urine RBC NONE /HPF Urine WBC 2-5 /HPF Urine Squamous Epithelial Cells RARE /HPF Urine Crystals NONE /LPF Urine Bacteria NEGATIVE /HPF Urine Casts NONE /LPF Urine Mucus SMALL H /LPF Urine Culture Indicated NO Urine Opiates Screen NEGATIVE NEGATIVE Urine Oxycodone Screen NEGATIVE NEGATIVE Urine Methadone Screen NEGATIVE NEGATIVE Urine Propoxyphene Screen NEGATIVE NEGATIVE Urine Barbiturates Screen NEGATIVE NEGATIVE Ur Tricyclic Antidepressants Screen NEGATIVE NEGATIVE Urine Phencyclidine Screen NEGATIVE NEGATIVE Urine Amphetamines Screen POSITIVE H NEGATIVE Urine Methamphetamines Screen POSITIVE H NEGATIVE Urine Benzodiazepines Screen NEGATIVE NEGATIVE Urine Cocaine Screen NEGATIVE NEGATIVE Urine Cannabinoids Screen POSITIVE H NEGATIVE (JINA ALVAREZ MD) My Orders Orders - JINA ALVAREZ MD Ceftriaxone (Rocephin) (04/23/22 07:30) Lidocaine 1% Inj 20 Ml (Xylocaine 1% Inj (04/23/22 07:30) Azithromycin Tablet (Zithromax Tablet) (04/23/22 07:30) Hydrocodone/Apap 7.5/325 Tab (Lortab 7. (04/23/22 07:30) Syphilis Antibody Screen (04/23/22 07:29) (JINA ALVAREZ MD) Medications Given in ED Current Medications Medications Dose Ordered Sig/Abner Route Start Time Stop Time Status Last Admin Dose Admin Acetaminophen/ Hydrocodone Bitart 1 ea ONCE ONCE PO 04/23/22 07:30 04/23/22 07:31 DC 04/23/22 07:49 1 EA Azithromycin 1,000 mg ONCE ONCE PO 04/23/22 07:30 04/23/22 07:31 DC 04/23/22 07:48 1,000 MG Ceftriaxone Sodium 250 mg ONCE ONCE IM 04/23/22 07:30 04/23/22 07:31 DC 04/23/22 07:48 250 MG Lidocaine HCl 0.9 ml ONCE ONCE INJ 04/23/22 07:30 04/23/22 07:31 DC 04/23/22 07:48 0.9 ML (JINA ALVAREZ MD) Vital Signs/I&O 04/23/22 04/23/22 05:00 08:37 Temp 35.8 35.8 Pulse 109 86 Resp 16 16 B/P (MAP) 135/95 (108) 128/72 Pulse Ox 100 100 O2 Delivery Room Air Room Air (JINA ALVAREZ MD) Blood Pressure Mean: 108 Progress Progress Note : Time: 07:26 Progress Note Patient care assumed at shift change, 36-year-old -[place] male with left groin pain. Vital signs are stable, patient is resting fairly comfortably states the Toradol helped a little bit. All labs and imaging reviewed, within normal limits. On reexamination the patient has a soft nontender abdomen, he points to the base of the penis towards the left side as the area of pain. He has what seems to be an enlarged lymph node in this area. He also has some vague discomfort to the superior aspect of left testicle. He denies burning with urination or penile discharge. He states his last sexual activity was at the beginning of February. He does relay a remote history of gonorrhea that was treated. He is being tested for gonorrhea and chlamydia however I am going to go ahead and treat him with Rocephin and azithromycin. I am going to give him a pain pill. He has no clinical or objective findings to warrant further testing or admission from the emergency department. Pertinent physical exam : No penile discharge noted, no penile lesions. He has some tenderness and swelling to the base of the penis towards the left. Possibly a lymph node. He also has some superficial skin thickening 3 to 7 mm raised areas multiple that appear to be keloid scar formation. He states these were pre-existing pain. No blistering/pustules/ulcerations concerning for herpes no open wounds. Patient is encouraged to follow-up with [facility]. Return precautions are given. (JINA ALVAREZ MD) Diagnostic Imaging Diagonstic Imaging: CT Comments NAME: WILDER MONGE MED REC#: [id number] PT STATUS: REG ER : 1985 PHYSICIAN: ABDULLAHI ORNELAS DO ADMIT DATE: 04/23/22/ER Draft Date of Exam:04/23/22 CT ABD/PELVIS WO(KIDNEY STONE) PROCEDURE: CT urinary tract, rule out kidney stone. TECHNIQUE: Multiple contiguous axial images were obtained through the abdomen and pelvis without the use of intravenous contrast. Auto Exposure Controls were utilized during the CT exam to meet ALARA standards for radiation dose reduction. DATE: April 23, 2022. COMPARISON: CT abdomen and pelvis September 27, 2020. INDICATION: 36-year-old male, left flank pain. FINDINGS: There are limitations for evaluation of the abdominal organs, neoplastic processes, abscess, and limited evaluation of the vasculature relating to the lack of intravenous contrast. The visualized portions of the lung bases are clear. The heart is not enlarged. There is no pericardial effusion. The liver is unremarkable in size and contour. The gallbladder is unremarkable. There is no biliary ductal dilation. Limited noncontrast assessment of the pancreatic parenchyma is unremarkable. The spleen is normal in size. The adrenal glands are unremarkable. Limited noncontrast evaluation of the renal parenchyma is unremarkable. The urinary collecting systems are not distended. There is no identified renal or ureteral stone. Urinary bladder is underdistended and not well evaluated. The intestinal tract is not distended. There is no evidence to suggest acute appendicitis. There is no identified free intraperitoneal air. There is no drainable fluid collection. There is no identified free fluid in the abdomen or pelvis. There are mildly distended gas-filled segments of small bowel in the left abdomen which are not disproportional to colonic caliber. There are atherosclerotic calcifications. There is no identified abnormally enlarged lymph node in the abdomen or pelvis meeting CT size criteria for adenopathy. There is no identified acute bony abnormality. There are bilateral L5 pars interarticularis defects without abnormal alignment of L5 relative to S1 IMPRESSION: CT ABDOMEN AND PELVIS. 1. Mildly distended gas-filled segments of small bowel in the left abdomen which are not disproportional to colonic caliber. This potentially could relate to ileus and could relate to a nonspecific enteritis. Recommend correlation. 2. No otherwise identified potential acute abnormality in the abdomen or pelvis. Dictated on workstation # [id number] Dict: 04/23/22 0636 Trans: 04/23/22 0714 CV [id number] Interpreted by: EFRA KAHN MD Electronically signed by: (JINA ALVAREZ MD) Departure Impression Primary Impression: Groin pain, chronic, left Additional Impression: Lymph node enlargement Disposition: 01 HOME, SELF-CARE Condition: Stable Departure-Patient Inst. Decision time for Depature: 08:18 (JINA ALVAREZ MD) Referrals: [facility],LOCAL PHYSICIAN (PCP) Primary Care Physician Patient Instructions: Abdominal Pain, Adult ED Add. Discharge Instructions: Take [id number] ibuprofen 600 mg which is 3 tablets with food every 6 hours as needed for pain. Please follow-up with [facility] for further evaluation and management of the pain and swelling in your groin. You have been treated today for sexually transmitted infection. Cultures have been sent to the lab. We will contact you if those cultures are positive for infection. Return to the emergency department for fever, worsening pain, vomiting or any other emergent, concerning symptoms. ABDULLAHI ORNELAS DO Apr 23, 2022 05:38 JINA ALVAREZ MD Apr 23, 2022 07:21
[2022-04-23 05:47] LABS: BASOPHILS % (AUTO) 1 % (0-10); EOSINOPHILS # (AUTO) 0.3 10^3/uL (0.0-0.3); EOSINOPHILS % (AUTO) 4 % (0-10); HEMATOCRIT 44 % (40-54); HEMOGLOBIN 14.6 g/dL (13.3-17.7); LYMPHOCYTES # (AUTO) 2.3 10^3/uL (1.0-4.0); LYMPHOCYTES % (AUTO) 37 % (12-44); MEAN CORPUSCULAR HEMOGLOBIN 27 pg (25-34); MEAN CORPUSCULAR HGB CONC 33 g/dL (32-36); MEAN CORPUSCULAR VOLUME 83 fL (80-99); MEAN PLATELET VOLUME 9.1 fL (9.0-12.2); MONOCYTES # (AUTO) 0.6 10^3/uL (0.0-1.0); MONOCYTES % (AUTO) 10 % (0-12); NEUTROPHILS % (AUTO) 48 % (42-75); PLATELET COUNT 307 10^3/uL (130-400); WHITE BLOOD COUNT 6.2 10^3/uL (4.3-11.0)
[2022-04-23 06:06] LABS: ALBUMIN 4.4 GM/DL (3.2-4.5); POTASSIUM 3.9 MMOL/L (3.6-5.0)
[2022-04-23 06:07] LABS: CALCIUM 9.4 MG/DL (8.5-10.1)
[2022-04-23 06:08] LABS: TOTAL PROTEIN 7.2 GM/DL (6.4-8.2)
[2022-04-23 06:10] LABS: BILIRUBIN,TOTAL 0.8 MG/DL (0.1-1.0)
[2022-04-23 06:10] LABS: CLARITY,URINE CLEAR; COLOR,URINE YELLOW; GLUCOSE, URINE (UA) NEGATIVE (NEGATIVE); KETONES,URINE 1+ (NEGATIVE); LEUKOCYTE ESTERASE ,URINE TRACE (NEGATIVE); NITRITE,URINE NEGATIVE (NEGATIVE); PROTEIN,URINE NEGATIVE (NEGATIVE)
[2022-04-23 06:12] LABS: CREATININE SERUM 1.14 MG/DL (0.60-1.30)
[2022-04-23 06:30] LABS: AMPHETAMINE SCREEN, URINE POSITIVE (NEGATIVE); BARBITURATE SCREEN URINE NEGATIVE (NEGATIVE); BENZODIAZEPINES SCREEN URINE NEGATIVE (NEGATIVE); CANNABINOID SCREEN, URINE POSITIVE (NEGATIVE); COCAINE SCREEN URINE NEGATIVE (NEGATIVE); METHADONE STAT NEGATIVE (NEGATIVE); OPIATE SCREEN URINE NEGATIVE (NEGATIVE); OXYCODONE STAT NEGATIVE (NEGATIVE); PROPOXYPHENE STAT NEGATIVE (NEGATIVE); TRICYCLIC ANTIDEPRESSANTS SCRE NEGATIVE (NEGATIVE)
[2022-04-23 07:03] LABS: BACTERIA,URINE NEGATIVE /HPF; BILIRUBIN,URINE 1+ (NEGATIVE); SQUAMOUS EPITHELIAL CELL,UR RARE /HPF
--- NOTE | 2022-04-23 07:13 | Diagnostic Imaging Report ---
EXAMINATION: Abdominal radiographs, single view, 2 images. DATE: April 23, 2022. CLINICAL INDICATION: 36-year-old male, left flank pain. COMPARISON: September 27, 2020. COMMENTS: There are gas-filled segments of small bowel measuring up to approximately 3.9 cm in diameter in the left abdomen. There is also colonic stool present. Small bowel distention is not disproportional to colonic caliber. There is no radiographically apparent renal or ureteral stone. IMPRESSION: 1. Abnormal but nonspecific bowel gas pattern with mild distention of gas-filled segments of small bowel in the left abdomen. This may reflect ileus. Dictated by: Dictated on workstation # [id number]
--- NOTE | 2022-04-23 07:14 | Diagnostic Imaging Report ---
PROCEDURE: CT urinary tract, rule out kidney stone. TECHNIQUE: Multiple contiguous axial images were obtained through the abdomen and pelvis without the use of intravenous contrast. Auto Exposure Controls were utilized during the CT exam to meet ALARA standards for radiation dose reduction. DATE: April 23, 2022. COMPARISON: CT abdomen and pelvis September 27, 2020. INDICATION: 36-year-old male, left flank pain. FINDINGS: There are limitations for evaluation of the abdominal organs, neoplastic processes, abscess, and limited evaluation of the vasculature relating to the lack of intravenous contrast. The visualized portions of the lung bases are clear. The heart is not enlarged. There is no pericardial effusion. The liver is unremarkable in size and contour. The gallbladder is unremarkable. There is no biliary ductal dilation. Limited noncontrast assessment of the pancreatic parenchyma is unremarkable. The spleen is normal in size. The adrenal glands are unremarkable. Limited noncontrast evaluation of the renal parenchyma is unremarkable. The urinary collecting systems are not distended. There is no identified renal or ureteral stone. Urinary bladder is underdistended and not well evaluated. The intestinal tract is not distended. There is no evidence to suggest acute appendicitis. There is no identified free intraperitoneal air. There is no drainable fluid collection. There is no identified free fluid in the abdomen or pelvis. There are mildly distended gas-filled segments of small bowel in the left abdomen which are not disproportional to colonic caliber. There are atherosclerotic calcifications. There is no identified abnormally enlarged lymph node in the abdomen or pelvis meeting CT size criteria for adenopathy. There is no identified acute bony abnormality. There are bilateral L5 pars interarticularis defects without abnormal alignment of L5 relative to S1 IMPRESSION: CT ABDOMEN AND PELVIS. 1. Mildly distended gas-filled segments of small bowel in the left abdomen which are not disproportional to colonic caliber. This potentially could relate to ileus and could relate to a nonspecific enteritis. Recommend correlation. 2. No otherwise identified potential acute abnormality in the abdomen or pelvis. Dictated by: Dictated on workstation # [id number]
[2022-04-23] MEDS ORDERED: cefTRIAXone 250 MG/2.5 ML ML IM ONE (07:30)
[2022-04-23] MEDS ORDERED: LIDOCAINE 1% INJ 20 ML VIAL INJ ONE (07:30)
[2022-04-23] MEDS ORDERED: HYDROcodone/APAP 7.5 MG/325 MG (LORTAB, LORCET PLUS) TABLET PO ONE (07:30)
[2022-04-23] MEDS ORDERED: AZITHROMYCIN 250 MG TAB (ZITHROMAX) PO ONE (07:30)
[2022-04-23 08:37] VITALS: BP 128/72
== END 2022-04-23 08:37 | disposition home or self-care (01) ==
LOC: EDUNIT# 04:43 → ER 04:45
DX: G89.29 Other chronic pain (principal); R10.32 Left lower quadrant pain; R59.0 Localized enlarged lymph nodes; F17.210 Nicotine dependence, cigarettes, uncomplicated; Z28.310 Unvaccinated for COVID-19
CPT/HCPCS: 36415; 74018; 74176; 80053; 80306; 81000; 85025; 86780; 87491; 87591

== ENCOUNTER 2022-04-24 10:22 | Emergency (ER) | payer SELFPAY ==
[~2022-04-24] VITALS: Ht 190 cm; Wt 90.0 kg
[2022-04-24 10:22] VITALS: BP 132/88
--- NOTE | 2022-04-24 10:30 | ED GU-Female ---
General Chief Complaint: - Reproductive Stated Complaint: SWOLLEN TESTICLE Source: patient Exam Limitations: no limitations History of Present Illness Date Seen by Provider: Apr 24, 2022 Time Seen by Provider: 10:24 Initial Comments 36-year-old male presents for continued left groin pain. He has had several instances of similar pains over the last year with a cause yet to be identified. Current symptoms started 2 days ago described as pain, swelling in his left groin without radiation. Aggravated by walking and relieved slightly by rest. He was seen here around 5:30 in the morning on 04/23 for the same concern. He was treated with Zithromax, Rocephin here for possible STI. He also had a CT scan which was negative. Labs were unremarkable. He denies any new sexual partners and states his last sexual activity was the beginning of February. He does have a remote history of gonorrhea which was treated. No changes in his bowels. No painful urination, penile discharge or hematuria. Allergies and Home Medications Allergies Coded Allergies: No Known Drug Allergies (Unverified , 05/31/15) Patient Home Medication List Home Medication List Reviewed: Yes Cyclobenzaprine HCl (Cyclobenzaprine HCl) 10 Mg Tablet, 10 MG PO Q8H PRN for SPASMS Prescribed by: PAULA GRAVES on 08/14/20 2312 Cyclobenzaprine HCl (Cyclobenzaprine HCl) 10 Mg Tablet, 10 MG PO Q8H PRN for SPASMS Prescribed by: JEAN EUGENE on 09/04/20 1800 Cyclobenzaprine HCl (Cyclobenzaprine HCl) 10 Mg Tablet, 10 MG PO Q8H PRN for SPASMS Prescribed by: PAULA GRAVES on 01/31/21 0229 Hydrocodone/Acetaminophen (Lorcet 5-325 mg Tablet) 1 Each Tablet, 1 EACH PO Q4- 6HR PRN for PAIN-MODERATE Prescribed by: MITRA MACHADO on 11/21/19 1339 Ibuprofen (Ibuprofen) 800 Mg Tablet, 800 MG PO Q8H PRN for PAIN-MILD Prescribed by: MITRA MACHADO on 09/03/19 1709 Methocarbamol (Robaxin-750) 750 Mg Tablet, 750 MG PO Q6H PRN for PAIN-MODERATE (5-7) Prescribed by: MITRA MACHADO on 11/21/19 1338 Ondansetron (Ondansetron Odt) 4 Mg Tab.rapdis, 4 MG SL Q4H PRN for NAUSEA/VOMITING Prescribed by: PAULA GRAVES on 08/14/20 2312 Ondansetron (Ondansetron Odt) 4 Mg Tab.rapdis, 4 MG PO Q8H PRN for nausea Prescribed by: JINA ALVAREZ on 04/04/22 1015 Prednisone (Prednisone) 20 Mg Tab, 40 MG PO DAILY Prescribed by: MITRA MACHADO on 11/21/19 1338 Prednisone (Prednisone) 20 Mg Tab, 20 MG PO DAILY Prescribed by: PAULA GRAVES on 01/31/21 0229 Review of Systems Review of Systems Constitutional: no symptoms reported EENTM: no symptoms reported Respiratory: no symptoms reported Cardiovascular: no symptoms reported Gastrointestinal: no symptoms reported Genitourinary: other (Left groin pain) Musculoskeletal: no symptoms reported Skin: no symptoms reported Past Yuanahb-Qsymhq-Gcnuwd Hx Patient Social History Tobacco Use?: Yes Use of E-Cig and/or Vaping dev: No Substance use?: No Alcohol Use?: No Immunizations Up To Date Tetanus Booster (TDap): Unknown Seasonal Allergies Seasonal Allergies: No Past Medical History Surgeries: Yes (LEFT HAND/FINGER STAPH INF SURGERY) Orthopedic Respiratory: No Cardiac: Yes (PERICARDITIS) Pericarditis Neurological: Yes Headaches /Migraines Genitourinary: No Gastrointestinal: No Musculoskeletal: Yes (chronic neck pain) Endocrine: No HEENT: No Cancer: No Psychosocial: Yes (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 OVERDOSE ON BENZODIAZEPINES 05/2020--WAS INTUBATED, THEN LEFT AMA WHEN HE WOKE UP -SMOKES 1 PPD PT IS HOMELESS AND HAS HAD MULTIPLE INCARCERATIONS PT WITH MULTIPLE VISITS FOR CHRONIC PAIN COMPLAINTS-ESPECIALLY NECK/BACK PAIN, HEADACHES Physical Exam Vital Signs Vital Signs - First Documented 04/24/22 10:22 Temp 36.9 Pulse 89 Resp 16 B/P (MAP) 132/88 (103) Pulse Ox 99 O2 Delivery Room Air Capillary Refill : Height, Weight, BMI Height: 6'3.00" Weight: 220lbs. oz. 99.849470cr; 24.00 BMI Method:Stated General Appearance: WD/WN, no apparent distress HEENT: TMs normal, pharynx normal Neck: non-tender, full range of motion, supple, normal inspection Cardiovascular: regular rate, rhythm, no edema, no gallop, no JVD, no murmur Respiratory: chest non-tender, lungs clear, normal breath sounds, no respiratory distress, no accessory muscle use Gastrointestinal: normal bowel sounds, soft, no organomegaly, other (Chronic to bilateral groin. No evidence for hernia, infection acutely. No testicular tenderness on my exam. Tenderness in the left inguinal region. Nonsurgical exam.) Back: normal inspection, no CVA tenderness, no vertebral tenderness Extremities: normal range of motion, non-tender, normal inspection, no pedal edema, no calf tenderness Neurologic/Psychiatric: alert, normal mood/affect, oriented x 3 Skin: normal color, warm/dry Lymphatic: no adenopathy Procedures/Interventions Date of ETT Placement: May 14, 2020 Time of ETT Placement: 1320 Progress/Results/Core Measures Suspected Sepsis SIRS Temperature: Pulse: Respiratory Rate: Blood Pressure / Mean: Results/Orders Vital Signs/I&O Capillary Refill : Departure Communication (Admissions) Pain is fairly chronic in nature. CT scan yesterday was completely unremarkable. He has no testicular or penile symptoms today. Labs, urinalysis were negative yesterday as well. He was treated for possible STIs. Advised that I do not think that any further emergent work-up is indicated at this time. Discussed. Testicular pain or if your symptoms change in any way to return to care however he will ultimately be discharged with primary care follow-up Impression Primary Impression: Groin pain, chronic, left Disposition: HOME, SELF-CARE Condition: Stable Departure-Patient Inst. Referrals: NO,LOCAL PHYSICIAN (PCP) Primary Care Physician [facility] [place] Add. Discharge Instructions: Continue to use home ibuprofen, Tylenol as needed. Should your symptoms persist I recommend you follow-up with the recommended primary care provider. Return to the emergency department for any severe concerns All discharge instructions reviewed with patient and/or family. Voiced understanding. RULA WELLS DO Apr 24, 2022 10:30
== END 2022-04-24 10:42 | disposition home or self-care (01) ==
LOC: EDUNIT# 10:22 → ER 10:23
DX: G89.29 Other chronic pain (principal); R10.32 Left lower quadrant pain; R10.31 Right lower quadrant pain; F17.210 Nicotine dependence, cigarettes, uncomplicated; Z28.310 Unvaccinated for COVID-19
CPT/HCPCS: 99283

== ENCOUNTER 2022-10-05 08:25 | Emergency (ER) | payer SELFPAY ==
[~2022-10-05] VITALS: Ht 188 cm; Wt 97.5 kg
[2022-10-05 08:32] VITALS: BP 172/89
[2022-10-05] MEDS ORDERED: PENI500T PO (08:56)
--- NOTE | 2022-10-05 08:56 | ED EENT ---
History of Present Illness General Chief Complaint: Facial Problems Stated Complaint: FACIAL SWELLING Nursing Triage Note: Patient ambulatory to room 5 w c/o left side facial swelling that started yesterday. patient states theres a hard knot in the cheek area. Patient states he has tried using ambisol, rinsing mouth with listerine, and a cold pack on face. Source: patient Exam Limitations: no limitations History of Present Illness Date Seen by Provider: Oct 05, 2022 Time Seen by Provider: 08:41 Initial Comments Patient is a 37-year-old male who presents to the emergency room with a chief complaint of left-sided upper facial swelling onset yesterday. Patient states that he has been "rubbing it" to try to relieve symptoms. He states otherwise he has not done anything for the pain however nurses notes state that the patient has been using Anbesol and Listerine as well as a cold pack. He has not taken any oral medications. He denies dental pain. He does smoke. He denies fevers or chills. He has had a mild runny nose. No complaints of difficulty swallowing, voice change or airway complaints. No allergies to medications. All other review of systems reviewed and negative except as stated Timing/Duration: abrupt Location: facial Prearrival Treatment: no prearrival treatment ("rubbing his face") Associated Symptoms: denies symptoms Allergies and Home Medications Allergies Coded Allergies: No Known Drug Allergies (Unverified , 05/31/15) Patient Home Medication List Home Medication List Reviewed: Yes Cyclobenzaprine HCl (Cyclobenzaprine HCl) 10 Mg Tablet, 10 MG PO Q8H PRN for SPASMS Prescribed by: PAULA GRAVES on 08/14/20 2312 Cyclobenzaprine HCl (Cyclobenzaprine HCl) 10 Mg Tablet, 10 MG PO Q8H PRN for SPASMS Prescribed by: JEAN EUGENE on 09/04/20 1800 Cyclobenzaprine HCl (Cyclobenzaprine HCl) 10 Mg Tablet, 10 MG PO Q8H PRN for SPASMS Prescribed by: PAULA GRAVES on 01/31/21 0229 Hydrocodone/Acetaminophen (Lorcet 5-325 mg Tablet) 1 Each Tablet, 1 EACH PO Q4- 6HR PRN for PAIN-MODERATE Prescribed by: MITRA MACHADO on 11/21/19 1339 Ibuprofen (Ibuprofen) 800 Mg Tablet, 800 MG PO Q8H PRN for PAIN-MILD Prescribed by: MITRA MACHADO on 09/03/19 1709 Methocarbamol (Robaxin-750) 750 Mg Tablet, 750 MG PO Q6H PRN for PAIN-MODERATE (5-7) Prescribed by: MITRA MACHADO on 11/21/19 1338 Ondansetron (Ondansetron Odt) 4 Mg Tab.rapdis, 4 MG SL Q4H PRN for N AUSEA/VOMITING Prescribed by: PAULA GRAVES on 08/14/20 2312 Ondansetron (Ondansetron Odt) 4 Mg Tab.rapdis, 4 MG PO Q8H PRN for nausea Prescribed by: JINA ALVAREZ on 04/04/22 1015 Penicillin V Potassium (Penicillin V Potassium) 500 Mg Tablet, 500 MG PO QID Prescribed by: JINA ALVAREZ on 10/05/22 0856 Prednisone (Prednisone) 20 Mg Tab, 40 MG PO DAILY Prescribed by: MITRA MACHADO on 11/21/19 1338 Prednisone (Prednisone) 20 Mg Tab, 20 MG PO DAILY Prescribed by: PAULA GRAVES on 01/31/21 0229 Review of Systems Review of Systems Constitutional: see HPI Ears: No Symptoms Reported Nose: other (Rhinorrhea) Mouth: swelling (Left upper maxilla area) Throat: no symptoms reported Respiratory: no symptoms reported Gastrointestinal: no symptoms reported All Other Systems Reviewed Negative Unless Noted: Yes Past Ruviqwc-Grvewz-Krgjjn Hx Patient Social History Tobacco Use?: Yes Tobacco type used: Cigarettes Smoking Status: Current Everyday Smoker Use of E-Cig and/or Vaping dev: Yes E-Cig or Vaping type used: CBD Use of E-Cig and/or Vaping Michel: Current Everyday User Alcohol Use?: No Immunizations Up To Date Tetanus Booster (TDap): Unknown Seasonal Allergies Seasonal Allergies: No Past Medical History Surgeries: Yes (LEFT HAND/FINGER STAPH INF SURGERY) Orthopedic Respiratory: No Cardiac: Yes (PERICARDITIS) Pericarditis Neurological: Yes Headaches /Migraines Genitourinary: No Gastrointestinal: No Musculoskeletal: Yes (chronic neck pain) Endocrine: No HEENT: No Cancer: No Psychosocial: Yes (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 OVERDOSE ON BENZODIAZEPINES 05/2020--WAS INTUBATED, THEN LEFT AMA WHEN HE WOKE UP -SMOKES 1 PPD PT IS HOMELESS AND HAS HAD MULTIPLE INCARCERATIONS PT WITH MULTIPLE VISITS FOR CHRONIC PAIN COMPLAINTS-ESPECIALLY NECK/BACK PAIN, HEADACHES Physical Exam Vital Signs Vital Signs - First Documented 10/05/22 08:32 Temp 36.2 Pulse 114 Resp 18 B/P (MAP) 172/89 (116) Pulse Ox 98 O2 Delivery Room Air Height, Weight, BMI Height: 6'3.00" Weight: 220lbs. oz. 99.503514pw; 27.00 BMI Method:Stated General Appearance: WD/WN, no apparent distress, other (Distracted by his phone during the history and exam) Eyes: bilateral eye normal inspection, bilateral eye PERRL, bilateral eye EOMI Ears: left ear auricle normal, left ear canal normal, left ear TM normal Nose: normal inspection Mouth/Throat: pharynx normal, maxillary swelling (On the left side), other (No percussive tenderness to any of the teeth on the left maxilla. Patient has multiple carious and fractured teeth. He has gingival swelling/fullness above approximately tooth #11 and 12. No significant fluctuance, no drainage. This area is tender.) Neck: full range of motion, lymphadenopathy (L) Cardiovascular: regular rate, rhythm Respiratory: no respiratory distress, no accessory muscle use Neurologic/Psychiatric: alert, normal mood/affect, oriented x 3 Skin: normal color, warm/dry Procedures/Interventions Date of ETT Placement: May 14, 2020 Time of ETT Placement: 1320 Progress/Results/Core Measures Results/Orders Vital Signs/I&O 10/05/22 08:32 Temp 36.2 Pulse 114 Resp 18 B/P (MAP) 172/89 (116) Pulse Ox 98 O2 Delivery Room Air Blood Pressure Mean: 116 Departure Impression Primary Impression: Abscess, dental Disposition: 01 HOME, SELF-CARE Condition: Stable Departure-Patient Inst. Decision time for Depature: 08:53 Referrals: [facility] [place],LOCAL PHYSICIAN (PCP) Primary Care Physician Patient Instructions: Tooth Abscess ED Add. Discharge Instructions: Try and follow good dental hygiene habits, brush daily twice a day. Use a good oral rinse such as Listerine daily. You can take [id number] extra strength Tylenol 2 tablets every 6 hours as needed for pain or [id number] ibuprofen 3 tablets which is 600 mg every 6 hours for pain. Always take ibuprofen with food An ice pack or cold compress on the left side of the face may help with swelling and discomfort as well. If after 2 days of antibiotics you are still having swelling, pain or you are developing fever please return to the emergency department for further evaluation. Please come back if the symptoms are more severe/emergently concerning within the next 2 days. Please take the antibiotics as directed. 4 times a day. Finish the entire 10- day course. You really should stop smoking because smoking impacts all issues of your health including teeth. [facility] has a dental clinic for follow up. Scripts Penicillin V Potassium (Penicillin V Potassium) 500 Mg Tablet 500 MG PO QID for 10 Days, #40 TAB Prov: JINA ALVAREZ MD 10/05/22 Images Mouth/Nose 1 - Swelling, Tenderness JINA ALVAREZ MD Oct 05, 2022 08:56
== END 2022-10-05 09:08 | disposition home or self-care (01) ==
LOC: EDUNIT# 08:25 → ER 08:28
DX: K04.7 Periapical abscess without sinus (principal); F17.210 Nicotine dependence, cigarettes, uncomplicated; Z28.310 Unvaccinated for COVID-19
CPT/HCPCS: 99281

== ENCOUNTER 2022-10-11 15:27 | Emergency (ER) | payer SELFPAY ==
[~2022-10-11] VITALS: Ht 190.5 cm; Wt 88.5 kg
[~2022-10-11 15:27] MED LIST changes: +PENI500T PO
[2022-10-11] MEDS ORDERED: NS IV 1000 ML 1,000 ML IV STA (15:53)
--- NOTE | 2022-10-11 15:53 | ED Abdominal Pain ---
General Stated Complaint: LEFT SIDE GROIN/BACK/ABD PAIN Source of Information: Patient Exam Limitations: No Limitations History of Present Illness Date Seen by Provider: Oct 11, 2022 Time Seen by Provider: 15:54 Initial Comments Patient is a 37-year-old male who presents to the ED with left flank pain, left groin pain. Symptoms started 3 days ago. Described as sharp pain and constant. Pain radiates from the back to the left groin. Denies of any pain with urination or frequent urination or hematuria or history of kidney stones. He noted a small bulge in his left lower groin. Denies history of bulge in the past. He states he has had similar pain in the past but unsure the cause. Patient states his left testicle has been more elevated over the past year. He is not concern for sexual transmitted infection, penile discharge. Denies taking thing for pain. Patient states he had a bowel movement yesterday that was normal but was slightly difficult. Denies of any rectal pain, chest pain, shortness of breath, cough, headache or dizziness, testicle pain, testicle swelling. Allergies and Home Medications Allergies Coded Allergies: No Known Drug Allergies (Unverified , 05/31/15) Patient Home Medication List Home Medication List Reviewed: Yes Cyclobenzaprine HCl (Cyclobenzaprine HCl) 10 Mg Tablet, 10 MG PO Q8H PRN for SPASMS Prescribed by: PAULA GRAVES on 08/14/20 2312 Cyclobenzaprine HCl (Cyclobenzaprine HCl) 10 Mg Tablet, 10 MG PO Q8H PRN for SPASMS Prescribed by: JEAN EUGENE on 09/04/20 1800 Cyclobenzaprine HCl (Cyclobenzaprine HCl) 10 Mg Tablet, 10 MG PO Q8H PRN for SPASMS Prescribed by: PAULA GRAVES on 01/31/21 0229 Hydrocodone/Acetaminophen (Lorcet 5-325 mg Tablet) 1 Each Tablet, 1 EACH PO Q4- 6HR PRN for PAIN-MODERATE Prescribed by: MITRA MACHADO on 11/21/19 1339 Hydrocodone/Acetaminophen (Hydrocodone-Acetamin 5-325 mg) 5 Mg-325 Mg Tablet, 1 TAB PO Q4H PRN for PAIN-MODERATE (5-7) Prescribed by: BONNY ZAPIEN on 10/11/22 1702 Ibuprofen (Ibuprofen) 800 Mg Tablet, 800 MG PO Q8H PRN for PAIN-MILD Prescribed by: MITRA MACHADO on 09/03/19 1709 Methocarbamol (Robaxin-750) 750 Mg Tablet, 750 MG PO Q6H PRN for PAIN-MODERATE (5-7) Prescribed by: MITRA MACHADO on 11/21/19 1338 Ondansetron (Ondansetron Odt) 4 Mg Tab.rapdis, 4 MG SL Q4H PRN for NAUSEA/VOMITING Prescribed by: PAULA GRAVES on 08/14/20 2312 Ondansetron (Ondansetron Odt) 4 Mg Tab.rapdis, 4 MG PO Q8H PRN for nausea Prescribed by: JINA ALVAREZ on 04/04/22 1015 Ondansetron (Ondansetron Odt) 4 Mg Tab.rapdis, 4 MG SL Q4H PRN for NAUSEA/VOMITING Prescribed by: BONNY ZAPIEN on 10/11/22 170 Penicillin V Potassium (Penicillin V Potassium) 500 Mg Tablet, 500 MG PO QID Prescribed by: JINA ALVAREZ on 10/05/22 0856 Prednisone (Prednisone) 20 Mg Tab, 40 MG PO DAILY Prescribed by: MITRA MACHADO on 11/21/19 133 Prednisone (Prednisone) 20 Mg Tab, 20 MG PO DAILY Prescribed by: PAULA GRAVES on 01/31/21 0229 Tamsulosin HCl (Flomax) 0.4 Mg Cap, 0.4 MG PO DAILY Prescribed by: BONNY ZAPIEN on 10/11/22 170 Review of Systems Review of Systems Constitutional: No chills, No diaphoresis, No fever, No malaise, No weakness EENTM: No Double Vision, No Eye Pain, No Mouth Pain, No Mouth Swelling Respiratory: Denies Cough, Denies Orthopnea, Denies Shortness of Air, Denies SOA With Exertion, Denies SOA at Rest Cardiovascular: Denies Chest Pain Gastrointestinal: Denies Abdominal Pain, Denies Diarrhea, Denies Nausea, Denies Vomiting Genitourinary: Denies Burning, Denies Discharge Musculoskeletal: No back pain, No joint pain Skin: No change in color Psychiatric/Neurological: Denies Emotional Problems All Other Systems Reviewed Negative Unless Noted: Yes Past Seiokbs-Nuklvp-Fqqmmc Hx Immunizations Up To Date Tetanus Booster (TDap): Unknown Seasonal Allergies Seasonal Allergies: No Past Medical History Surgeries: Yes (LEFT HAND/FINGER STAPH INF SURGERY) Orthopedic Respiratory: No Cardiac: Yes (PERICARDITIS) Pericarditis Neurological: Yes Headaches /Migraines Genitourinary: No Gastrointestinal: No Musculoskeletal: Yes (chronic neck pain) Endocrine: No HEENT: No Cancer: No Psychosocial: Yes (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 OVERDOSE ON BENZODIAZEPINES 05/2020--WAS INTUBATED, THEN LEFT AMA WHEN HE WOKE UP -SMOKES 1 PPD PT IS HOMELESS AND HAS HAD MULTIPLE INCARCERATIONS PT WITH MULTIPLE VISITS FOR CHRONIC PAIN COMPLAINTS-ESPECIALLY NECK/BACK PAIN, HEADACHES Physical Exam Vital Signs Vital Signs - First Documented 10/11/22 15:44 Temp 36.2 Pulse 111 Resp 19 B/P (MAP) 128/94 (105) O2 Delivery Room Air Capillary Refill : Height/Weight/BMI Height: 6'3.00" Weight: 220lbs. oz. 99.587357ao; 27.00 BMI Method:Stated General Appearance: WD/WN, no apparent distress HEENT: PERRL/EOMI, normal ENT inspection, TMs normal, pharynx normal Neck: non-tender, full range of motion, supple, normal inspection Respiratory: chest non-tender, lungs clear, normal breath sounds, no respiratory distress, no accessory muscle use Cardiovascular: regular rate, rhythm, no edema, no gallop, no JVD Gastrointestinal: normal bowel sounds, soft, no organomegaly, no pulsatile mass, other (Left lower quadrant tenderness, left flank tenderness.) Extremities: normal range of motion, non-tender, normal inspection, no pedal edema, no calf tenderness Back: normal inspection, no CVA tenderness Male: other (Bilateral groin lymphadenopathy.No testicular tenderness. 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, no motor/sensory deficits, alert, normal mood/affect, oriented x 3 Skin: normal color, warm/dry Procedures/Interventions Date of ETT Placement: May 14, 2020 Time of ETT Placement: 1320 Progress/Results/Core Measures Results/Orders Lab Results Laboratory Tests Test 10/11/22 15:58 10/11/22 16:05 Range/Units White Blood Count 5.0 4.3-11.0 10^3/uL Red Blood Count 5.51 4.30-5.52 10^6/uL Hemoglobin 14.6 13.3-17.7 g/dL Hematocrit 45 40-54 % Mean Corpuscular Volume 82 80-99 fL Mean Corpuscular Hemoglobin 27 25-34 pg Mean Corpuscular Hemoglobin Concent 33 32-36 g/dL Red Cell Distribution Width 13.2 10.0-14.5 % Platelet Count 356 130-400 10^3/uL Mean Platelet Volume 8.7 L 9.0-12.2 fL Immature Granulocyte % (Auto) 0 % Neutrophils (%) (Auto) 51 42-75 % Lymphocytes (%) (Auto) 36 12-44 % Monocytes (%) (Auto) 9 0-12 % Eosinophils (%) (Auto) 4 0-10 % Basophils (%) (Auto) 1 0-10 % Neutrophils # (Auto) 2.6 1.8-7.8 10^3/uL Lymphocytes # (Auto) 1.8 1.0-4.0 10^3/uL Monocytes # (Auto) 0.4 0.0-1.0 10^3/uL Eosinophils # (Auto) 0.2 0.0-0.3 10^3/uL Basophils # (Auto) 0.0 0.0-0.1 10^3/uL Immature Granulocyte # (Auto) 0.0 0.0-0.1 10^3/uL Sodium Level 138 135-145 MMOL/L Potassium Level 4.1 3.6-5.0 MMOL/L Chloride Level 104 98-107 MMOL/L Carbon Dioxide Level 24 21-32 MMOL/L Anion Gap 10 5-14 MMOL/L Blood Urea Nitrogen 15 7-18 MG/DL Creatinine 1.00 0.60-1.30 MG/DL Estimat Glomerular Filtration Rate 99 BUN/Creatinine Ratio 15 Glucose Level 115 H 70-105 MG/DL Calcium Level 9.6 8.5-10.1 MG/DL Corrected Calcium 9.3 8.5-10.1 MG/DL Total Bilirubin 0.7 0.1-1.0 MG/DL Aspartate Amino Transf (AST/SGOT) 25 5-34 U/L Alanine Aminotransferase (ALT/SGPT) 26 0-55 U/L Alkaline Phosphatase 67 40-136 U/L Total Protein 7.5 6.4-8.2 GM/DL Albumin 4.4 3.2-4.5 GM/DL Lipase 37 8-78 U/L Urine Color YELLOW Urine Clarity CLEAR Urine pH 5.5 5-9 Urine Specific [place] >=1.030 1.016-1.022 Urine Protein 1+ H NEGATIVE Urine Glucose (UA) NEGATIVE NEGATIVE Urine Ketones NEGATIVE NEGATIVE Urine Nitrite NEGATIVE NEGATIVE Urine Bilirubin NEGATIVE NEGATIVE Urine Urobilinogen 0.2 < = 1.0 MG/DL Urine Leukocyte Esterase NEGATIVE NEGATIVE Urine RBC (Auto) NEGATIVE NEGATIVE Urine RBC 0-2 /HPF Urine WBC 0-2 /HPF Urine Squamous Epithelial Cells 2-5 /HPF Urine Crystals NONE /LPF Urine Bacteria TRACE /HPF Urine Casts NONE /LPF Urine Mucus MODERATE H /LPF Urine Other MOD SPERM H /HPF Urine Culture Indicated NO My Orders Orders - CHER JOSEPH PA Ua Culture If Indicated (10/11/22 15:31) Cbc With Automated Diff (10/11/22 15:50) Comprehensive Metabolic Panel (10/11/22 15:50) Lipase (10/11/22 15:50) Neis Deric Dna Urine Test (10/11/22 15:50) Chlamydia Trachomatis Urine (10/11/22 15:50) Ct Abd/Pelvis Wo(Kidney Stone) (10/11/22 15:50) Ketorolac Injection (Toradol Injection) (10/11/22 16:00) Ns Iv 1000 Ml (Sodium Chloride 0.9%) (10/11/22 15:53) Ed Iv/Invasive Line Start (10/11/22 16:01) Hydrocodone/Apap 5/325 Tablet (Lortab 5 (10/11/22 17:00) Medications Given in ED Current Medications Medications Dose Ordered Sig/Abner Route Start Time Stop Time Status Last Admin Dose Admin Acetaminophen/ Hydrocodone Bitart 1 ea ONCE ONCE PO 10/11/22 17:00 10/11/22 17:01 DC 10/11/22 17:08 1 EA Ketorolac Tromethamine 30 mg ONCE ONCE IVP 10/11/22 16:00 10/11/22 16:01 DC 10/11/22 16:03 30 MG Vital Signs/I&O 10/11/22 15:44 Temp 36.2 Pulse 111 Resp 19 B/P (MAP) 128/94 (105) O2 Delivery Room Air Departure Communication (PCP) Patient is a 37-year-old male presents ED with left flank, left groin pain. Symptoms over the past 3 days. Described as sharp and for the most part constant. No urinary symptoms. Concerning for bulge in the left lower groin. Does have some subtle lymphadenopathy bilateral. Denies of any concern for sexual transmitted infection. History of STD. Denies history of kidney stone. No trauma. No vomiting or diarrhea but states he had some discomfort with his bowel movement yesterday which was soft. Due to current complaint CBC, CMP, lipase, urinalysis, CT abdomen pelvis. CBC was otherwise grossly unremarkable. CMP grossly unremarkable. Urinalysis without strong evidence infection or hematuria. Concerning for nephrolithiasis versus ureterolithiasis. CT abdomen and pelvis was positive for presumed a 2 mm extraosseous calcification personally at the left UPJ. No significant hydronephrosis. Patient has no testicular tenderness on palpation or evidence of swelling. He reports a high rising left testicle for the past year which was not necessarily recognize at this time. STD cultures currently pending with his history of STD and currently sexually active. Provided [facility] outpatient follow-up. Continue with hydration. Will discharge with Flomax, Zofran for nausea and something for pain. If any worsening symptoms return back to ED. Impression Primary Impression: Ureterolithiasis Disposition: HOME, SELF-CARE Condition: Stable Departure-Patient Inst. Decision time for Depature: 17:01 Referrals: [facility] [place] NO,LOCAL PHYSICIAN (PCP) Primary Care Physician Patient Instructions: Kidney Stone, Adult ED Add. Discharge Instructions: [facility] urology [id number] Scripts Hydrocodone/Acetaminophen (Hydrocodone-Acetamin 5-325 mg) 5 Mg-325 Mg Tablet 1 TAB PO Q4H PRN for PAIN-MODERATE (5-7), #6 TAB Prov: CHER JOSEPH 10/11/22 Ondansetron (Ondansetron Odt) 4 Mg Tab.rapdis 4 MG SL Q4H PRN for NAUSEA/VOMITING, #6 TAB Prov: CHER JOSEPH 10/11/22 Tamsulosin HCl (Flomax) 0.4 Mg Cap 0.4 MG PO DAILY, #14 CAP Prov: CHER JOSEPH 10/11/22 CHER JOSEPH Oct 11, 2022 15:53
[2022-10-11] MEDS ORDERED: KETOROLAC 30 MG/ML VIAL IVP ONE (16:00)
[2022-10-11 16:05] LABS: BASOPHILS % (AUTO) 1 % (0-10); EOSINOPHILS # (AUTO) 0.2 10^3/uL (0.0-0.3); EOSINOPHILS % (AUTO) 4 % (0-10); HEMATOCRIT 45 % (40-54); HEMOGLOBIN 14.6 g/dL (13.3-17.7); LYMPHOCYTES # (AUTO) 1.8 10^3/uL (1.0-4.0); LYMPHOCYTES % (AUTO) 36 % (12-44); MEAN CORPUSCULAR HEMOGLOBIN 27 pg (25-34); MEAN CORPUSCULAR HGB CONC 33 g/dL (32-36); MEAN CORPUSCULAR VOLUME 82 fL (80-99); MEAN PLATELET VOLUME 8.7 fL (9.0-12.2); MONOCYTES # (AUTO) 0.4 10^3/uL (0.0-1.0); MONOCYTES % (AUTO) 9 % (0-12); NEUTROPHILS # (AUTO) 2.6 10^3/uL (1.8-7.8); NEUTROPHILS % (AUTO) 51 % (42-75); PLATELET COUNT 356 10^3/uL (130-400)
[2022-10-11 16:10] LABS: BILIRUBIN,URINE NEGATIVE (NEGATIVE); CLARITY,URINE CLEAR; COLOR,URINE YELLOW; GLUCOSE, URINE (UA) NEGATIVE (NEGATIVE); KETONES,URINE NEGATIVE (NEGATIVE); LEUKOCYTE ESTERASE ,URINE NEGATIVE (NEGATIVE); NITRITE,URINE NEGATIVE (NEGATIVE); PH,URINE 5.5 (5-9); PROTEIN,URINE 1+ (NEGATIVE)
[2022-10-11 16:21] LABS: ALBUMIN 4.4 GM/DL (3.2-4.5); POTASSIUM 4.1 MMOL/L (3.6-5.0)
[2022-10-11 16:22] LABS: CALCIUM 9.6 MG/DL (8.5-10.1)
[2022-10-11 16:22] LABS: BACTERIA,URINE TRACE /HPF; RBC,URINE 0-2 /HPF; URINE OTHER MOD SPERM /HPF; WBC,URINE 0-2 /HPF
[2022-10-11 16:24] LABS: TOTAL PROTEIN 7.5 GM/DL (6.4-8.2)
[2022-10-11 16:25] LABS: BILIRUBIN,TOTAL 0.7 MG/DL (0.1-1.0)
--- NOTE | 2022-10-11 16:32 | Diagnostic Imaging Report ---
PROCEDURE: CT urinary tract, rule out kidney stone. TECHNIQUE: Multiple contiguous axial images were obtained through the abdomen and pelvis without the use of intravenous contrast. Auto Exposure Controls were utilized during the CT exam to meet ALARA standards for radiation dose reduction. INDICATION: Left flank and inguinal pain. COMPARISON: 04/23/2022. FINDINGS: Included portions of the lung bases are clear. CT ABDOMEN: There is subtle 2 mm calculus at the region of the left UPJ. This could be on the basis of collecting system calculus. There is no proximal hydronephrosis. No other renal or ureteral calculi are seen on either side. Kidneys have an otherwise unremarkable noncontrast CT appearance. The adrenal glands, spleen, pancreas, and liver have an unremarkable noncontrast CT appearance. Small bowel loops are nondistended. Normal appendix is identified. There is no loculated fluid collection, free fluid, or free air within the abdomen. No abnormal mesenteric or retroperitoneal adenopathy is seen. Osseous structures show no acute abnormalities. CT PELVIS: Urinary bladder is unopacified. No calculi are seen within the urinary bladder. There is no loculated fluid collection, free fluid, or free air within the pelvis. No abnormal lymph nodes are seen. Osseous structures show no acute abnormalities. IMPRESSION: 1. Faint 2 mm extraosseous calcification presumably at the left UPJ. Despite this, there is no significant proximal hydronephrosis. Dictated by: Dictated on workstation # [id number]
[2022-10-11] MEDS ORDERED: HYDROcodone/APAP 5 MG/325 MG (LORTAB) TAB PO ONE (17:00)
[2022-10-11] MEDS ORDERED: ACHD5005 PO (17:01)
[2022-10-11] MEDS ORDERED: TMSL.4C PO (17:01)
[2022-10-11] MEDS ORDERED: ONDA4TAB11 SL (17:01)
[2022-10-11 17:10] VITALS: BP 146/87
== END 2022-10-11 17:10 | disposition home or self-care (01) ==
LOC: EDUNIT# 15:27 → ER 15:29
DX: N20.1 Calculus of ureter (principal); R59.0 Localized enlarged lymph nodes; F17.210 Nicotine dependence, cigarettes, uncomplicated; Z28.310 Unvaccinated for COVID-19
CPT/HCPCS: 36415; 74176; 80053; 81000; 83690; 85025; 87491; 87591

== ENCOUNTER 2022-11-26 11:11 | Emergency (ER) | payer OTHER ==
[~2022-11-26] VITALS: Ht 190.5 cm; Wt 91.0 kg
[~2022-11-26 11:11] MED LIST changes: +ACHD5005 PO; +TMSL.4C PO; +TOPI-241; -TOPI50TA13
[2022-11-26] MEDS ORDERED: ORPHENADRINE 60 MG/2 ML (NORFLEX) AMP (ED ONLY) IV ONE (12:00)
[2022-11-26] MEDS ORDERED: KETOROLAC 15 MG/ML VIAL IVP ONE (12:00)
--- NOTE | 2022-11-26 12:01 | ED Back Pain ---
General Chief Complaint: Back Problems Stated Complaint: LOWER BACK PAIN Nursing Triage Note: PT AMB TO ED BY POV WITH C/O LOWER BACK, L HIP, AND L LEG PAIN. PT REPORTS CHRONIC LOWER BACK PAIN, WORSE OVER THE LAST FEW DAYS, NOW RADIATING TO L HIP AND L LEG. DENIES INJURY. PT HAS NOT TAKEN ANYTHING FOR THE PAIN TODAY. REPORTS HE HAS BACK SPASMS AFTER HAVING BM. Source of Information: Patient Exam Limitations: No Limitations History of Present Illness Date Seen by Provider: November 26, 2022 Time Seen by Provider: 11:45 Initial Comments 37-year-old male presents the ED with complaints of muscle spasms. He states that the pain starts in his left testicle, radiates up into his left lower abd omen and around to his back and his left hip/thigh. He reports numbness in his left leg. Denies any loss of bowel or bladder. Patient is able to walk. He states he has been having these pains intermittently for the last year and a half. He states the pain is also worse after having a bowel movement. States he last had a bowel movement this morning, states it was hard, he states he feels constipated. Denies nausea vomiting. He reports that in the past he had a CT which showed he had a kidney stone. He does not think that he ever passed it. Allergies and Home Medications Allergies Coded Allergies: No Known Drug Allergies (Unverified , 05/31/15) Patient Home Medication List Home Medication List Reviewed: Yes Cyclobenzaprine HCl (Cyclobenzaprine HCl) 10 Mg Tablet, 10 MG PO Q8H PRN for SPASMS Prescribed by: PAULA GRAVES on 08/14/20 2312 Cyclobenzaprine HCl (Cyclobenzaprine HCl) 10 Mg Tablet, 10 MG PO Q8H PRN for SPASMS Prescribed by: JEAN EUGENE on 09/04/20 1800 Cyclobenzaprine HCl (Cyclobenzaprine HCl) 10 Mg Tablet, 10 MG PO Q8H PRN for SPASMS Prescribed by: PAULA GRAVES on 01/31/21 0229 Cyclobenzaprine HCl (Cyclobenzaprine HCl) 10 Mg Tablet, 10 MG PO TID Prescribed by: Blessing Lofton on 11/26/22 1316 Hydrocodone/Acetaminophen (Lorcet 5-325 mg Tablet) 1 Each Tablet, 1 EACH PO Q4- 6HR PRN for PAIN-MODERATE Prescribed by: MITRA MACHADO on 11/21/19 1339 Hydrocodone/Acetaminophen (Hydrocodone-Acetamin 5-325 mg) 5 Mg-325 Mg Tablet, 1 TAB PO Q4H PRN for PAIN-MODERATE (5-7) Prescribed by: BONNY ZAPIEN on 10/11/22 1702 Ibuprofen (Ibuprofen) 800 Mg Tablet, 800 MG PO Q8H PRN for PAIN-MILD Prescribed by: MITRA MACHADO on 09/03/19 1709 Methocarbamol (Robaxin-750) 750 Mg Tablet, 750 MG PO Q6H PRN for PAIN-MODERATE (5-7) Prescribed by: MITRA MACHADO on 11/21/19 1338 Methylprednisolone (Methylprednisolone Dose Pack) 4 Mg Tab.ds.pk, 4 MG PO UD Prescribed by: Blessing Lofton on 11/26/22 1316 Ondansetron (Ondansetron Odt) 4 Mg Tab.rapdis, 4 MG SL Q4H PRN for NAUSEA/VOMIT ING Prescribed by: PAULA GRAVES on 08/14/20 2312 Ondansetron (Ondansetron Odt) 4 Mg Tab.rapdis, 4 MG PO Q8H PRN for nausea Prescribed by: JINA ALVAREZ on 04/04/22 1015 Ondansetron (Ondansetron Odt) 4 Mg Tab.rapdis, 4 MG SL Q4H PRN for NAUSEA/VOMITING Prescribed by: BONNY ZAPIEN on 10/11/22 1701 Penicillin V Potassium (Penicillin V Potassium) 500 Mg Tablet, 500 MG PO QID Prescribed by: JINA ALVAREZ on 10/05/22 0856 Prednisone (Prednisone) 20 Mg Tab, 40 MG PO DAILY Prescribed by: MITRA MACHADO on 11/21/19 1338 Prednisone (Prednisone) 20 Mg Tab, 20 MG PO DAILY Prescribed by: PAULA GRAVES on 01/31/21 0229 Tamsulosin HCl (Flomax) 0.4 Mg Cap, 0.4 MG PO DAILY Prescribed by: BONNY ZAPIEN on 10/11/22 1701 Review of Systems Constitutional: see HPI Past Pteopds-Piuztz-Qzfxjm Hx Patient Social History Tobacco Use?: Yes Tobacco type used: Cigarettes Smoking Status: Current Everyday Smoker Use of E-Cig and/or Vaping dev: Yes E-Cig or Vaping type used: Nicotine Use of E-Cig and/or Vaping Michel: Current Everyday User Substance use?: No Alcohol Use?: No Pt feels they are or have been: No Immunizations Up To Date Tetanus Booster (TDap): Unknown Influenza Vaccine Up-to-Date: No; Not Current Seasonal Allergies Seasonal Allergies: No Past Medical History Surgery/Hospitalization HX: DENIES Surgeries: Yes (LEFT HAND/FINGER STAPH INF SURGERY) Orthopedic Respiratory: No Cardiac: Yes (PERICARDITIS) Pericarditis Neurological: Yes Headaches /Migraines Genitourinary: No Gastrointestinal: No Musculoskeletal: Yes (chronic neck pain) Endocrine: No HEENT: No Cancer: No Psychosocial: Yes (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 OVERDOSE ON BENZODIAZEPINES 05/2020--WAS INTUBATED, THEN LEFT AMA WHEN HE WOKE UP -SMOKES 1 PPD PT IS HOMELESS AND HAS HAD MULTIPLE INCARCERATIONS PT WITH MULTIPLE VISITS FOR CHRONIC PAIN COMPLAINTS-ESPECIALLY NECK/BACK PAIN, HEADACHES Physical Exam Vital Signs Vital Signs - First Documented 11/26/22 11:30 Temp 36.8 Pulse 90 Resp 16 B/P (MAP) 144/81 (102) Pulse Ox 98 O2 Delivery Room Air Capillary Refill : Less Than 3 Seconds Height, Weight, BMI Height: 6'3.00" Weight: 220lbs. oz. 99.316969fs; 25.00 BMI Method:Stated General Appearance: No Apparent Distress, WD/WN Neck: Non Tender, Supple Cardiovascular: Regular Rate, Rhythm Respiratory: Lungs Clear, Normal Breath Sounds, No Accessory Muscle Use, No Respiratory Distress Gastrointestinal: Normal Bowel Sounds, Soft, Tenderness (Mild tenderness left lower quadrant) Back: No Vertebral Tenderness, Other (Muscular pain to palpation multiple areas on left-sided back) Extremity: Normal Inspection, Normal Range of Motion Neurologic/Psychiatric: Alert, Normal Mood/Affect Skin: Normal Color, Warm/Dry Procedures/Interventions Date of ETT Placement: May 14, 2020 Time of ETT Placement: 1320 Progress/Results/Core Measures Results/Orders Lab Results Laboratory Tests Test 11/26/22 11:58 11/26/22 12:12 11/26/22 13:14 Range/Units Urine Color YELLOW Urine Clarity CLEAR Urine pH 6.0 5-9 Urine Specific [place] <=1.005 1.016-1.022 Urine Protein NEGATIVE NEGATIVE Urine Glucose (UA) NEGATIVE NEGATIVE Urine Ketones NEGATIVE NEGATIVE Urine Nitrite NEGATIVE NEGATIVE Urine Bilirubin NEGATIVE NEGATIVE Urine Urobilinogen 0.2 < = 1.0 MG/DL Urine Leukocyte Esterase NEGATIVE NEGATIVE Urine RBC (Auto) NEGATIVE NEGATIVE Urine RBC NONE /HPF Urine WBC NONE /HPF Urine Crystals NONE /LPF Urine Bacteria NEGATIVE /HPF Urine Casts NONE /LPF Urine Mucus NEGATIVE /LPF Urine Culture Indicated NO White Blood Count 6.9 4.3-11.0 10^3/uL Red Blood Count 5.34 4.30-5.52 10^6/uL Hemoglobin 14.3 13.3-17.7 g/dL Hematocrit 45 40-54 % Mean Corpuscular Volume 84 80-99 fL Mean Corpuscular Hemoglobin 27 25-34 pg Mean Corpuscular Hemoglobin Concent 32 32-36 g/dL Red Cell Distribution Width 14.7 H 10.0-14.5 % Platelet Count 337 130-400 10^3/uL Mean Platelet Volume 8.7 L 9.0-12.2 fL Immature Granulocyte % (Auto) 0 % Neutrophils (%) (Auto) 51 42-75 % Lymphocytes (%) (Auto) 35 12-44 % Monocytes (%) (Auto) 9 0-12 % Eosinophils (%) (Auto) 5 0-10 % Basophils (%) (Auto) 1 0-10 % Neutrophils # (Auto) 3.5 1.8-7.8 10^3/uL Lymphocytes # (Auto) 2.4 1.0-4.0 10^3/uL Monocytes # (Auto) 0.6 0.0-1.0 10^3/uL Eosinophils # (Auto) 0.4 H 0.0-0.3 10^3/uL Basophils # (Auto) 0.0 0.0-0.1 10^3/uL Immature Granulocyte # (Auto) 0.0 0.0-0.1 10^3/uL Sodium Level 143 135-145 MMOL/L Potassium Level 3.7 3.6-5.0 MMOL/L Chloride Level 104 98-107 MMOL/L Carbon Dioxide Level 30 21-32 MMOL/L Anion Gap 9 5-14 MMOL/L Blood Urea Nitrogen 5 L 7-18 MG/DL Creatinine 0.85 0.60-1.30 MG/DL Estimat Glomerular Filtration Rate 115 BUN/Creatinine Ratio 6 Glucose Level 59 *L 70-105 MG/DL Calcium Level 10.9 H 8.5-10.1 MG/DL Corrected Calcium 10.7 H 8.5-10.1 MG/DL Magnesium Level 2.0 1.6-2.4 MG/DL Total Bilirubin 0.3 0.1-1.0 MG/DL Aspartate Amino Transf (AST/SGOT) 23 5-34 U/L Alanine Aminotransferase (ALT/SGPT) 23 0-55 U/L Alkaline Phosphatase 85 40-136 U/L Total Protein 7.2 6.4-8.2 GM/DL Albumin 4.3 3.2-4.5 GM/DL Glucometer 116 H 70-110 MG/DL My Orders Orders - BLESSING LOFTON APRN Cbc With Automated Diff (11/26/22 11:53) Magnesium (11/26/22 11:53) Comprehensive Metabolic Panel (11/26/22 11:53) Ed Iv/Invasive Line Start (11/26/22 11:53) Urinalysis (11/26/22 11:53) Us Scrotum (Testicle) [address] (11/26/22 11:53) Ketorolac Injection (Toradol Injection) (11/26/22 12:00) Orphenadrine Inj (Ed Only) (Norflex Inje (11/26/22 12:00) Dexamethasone Injection (Decadron Injec (11/26/22 12:00) Medications Given in ED Current Medications Medications Dose Ordered Sig/Abner Route Start Time Stop Time Status Last Admin Dose Admin Dexamethasone Sodium Phosphate 8 mg ONCE ONCE IV 11/26/22 12:00 11/26/22 12:01 DC 11/26/22 12:18 8 MG Ketorolac Tromethamine 15 mg ONCE ONCE IVP 11/26/22 12:00 11/26/22 12:01 DC 11/26/22 12:16 15 MG Orphenadrine Citrate 60 mg ONCE ONCE IV 11/26/22 12:00 11/26/22 12:01 DC 11/26/22 12:16 60 MG Vital Signs/I&O 11/26/22 11/26/22 11:30 12:56 Temp 36.8 Pulse 90 77 Resp 16 18 B/P (MAP) 144/81 (102) 125/87 (100) Pulse Ox 98 100 O2 Delivery Room Air Room Air Blood Pressure Mean: 102 Progress Progress Note : Progress Note Patient seen and evaluated, resting comfortably in bed, no acute distress. Based on exam and symptoms, work-up initiated including CBC, CMP, magnesium, UA, scrotum ultrasound. Toradol, Norflex, Decadron ordered. Labs and ultrasound reviewed. CBC grossly normal. CMP shows critically low glucose 59, slightly elevated calcium 10.9. Urinalysis grossly normal. Ultrasound negative. Patient reports he feels better after eating. Blood sugar improved after eating. Pain is likely musculoskeletal, patient reports his pain is better after medications. Will discharge with muscle relaxer and steroid. Discharge instructions return precautions provided. Departure Impression Primary Impression: Back pain Qualified Codes: M54.9 - Dorsalgia, unspecified Additional Impression: Muscle spasm of back Disposition: HOME, SELF-CARE Condition: Stable Departure-Patient Inst. Decision time for Depature: 13:14 Referrals: NO,LOCAL PHYSICIAN (PCP/Family) Primary Care Physician Patient Instructions: Muscle Spasm ED Add. Discharge Instructions: Take muscle relaxer as needed for pain, it may cause you to be sleepy. Take 800 mg of ibuprofen every 8 hours with food as needed for pain. Take Medrol Dosepak as prescribed. Return for inability to walk, worsening numbness or tingling, loss of bowel or bladder, or any other new, concerning, or worsening symptoms. All discharge instructions reviewed with patient and/or family. Voiced understanding. Scripts Cyclobenzaprine HCl (Cyclobenzaprine HCl) 10 Mg Tablet 10 MG PO TID, #21 TAB 0 Refills Prov: BLESSING LOFTON APRN 11/26/22 Methylprednisolone (Methylprednisolone Dose Pack) 4 Mg Tab.ds.pk 4 MG PO UD for 6 Days, #21 PKG 0 Refills PER DOSE PACK INSTRUCTIONS Prov: BLESSING LOFTON APRN 11/26/22 BLESSING LOFTON APRN November 26, 2022 12:01
[2022-11-26 12:12] LABS: BILIRUBIN,URINE NEGATIVE (NEGATIVE); CLARITY,URINE CLEAR; COLOR,URINE YELLOW; GLUCOSE, URINE (UA) NEGATIVE (NEGATIVE); KETONES,URINE NEGATIVE (NEGATIVE); LEUKOCYTE ESTERASE ,URINE NEGATIVE (NEGATIVE); NITRITE,URINE NEGATIVE (NEGATIVE); PROTEIN,URINE NEGATIVE (NEGATIVE)
[2022-11-26 12:19] LABS: BACTERIA,URINE NEGATIVE /HPF
[2022-11-26 12:20] LABS: BASOPHILS % (AUTO) 1 % (0-10); EOSINOPHILS # (AUTO) 0.4 10^3/uL (0.0-0.3); EOSINOPHILS % (AUTO) 5 % (0-10); HEMATOCRIT 45 % (40-54); HEMOGLOBIN 14.3 g/dL (13.3-17.7); LYMPHOCYTES # (AUTO) 2.4 10^3/uL (1.0-4.0); LYMPHOCYTES % (AUTO) 35 % (12-44); MEAN CORPUSCULAR HEMOGLOBIN 27 pg (25-34); MEAN CORPUSCULAR HGB CONC 32 g/dL (32-36); MEAN CORPUSCULAR VOLUME 84 fL (80-99); MEAN PLATELET VOLUME 8.7 fL (9.0-12.2); MONOCYTES # (AUTO) 0.6 10^3/uL (0.0-1.0); MONOCYTES % (AUTO) 9 % (0-12); NEUTROPHILS # (AUTO) 3.5 10^3/uL (1.8-7.8); NEUTROPHILS % (AUTO) 51 % (42-75); PLATELET COUNT 337 10^3/uL (130-400); WHITE BLOOD COUNT 6.9 10^3/uL (4.3-11.0)
[2022-11-26 12:35] LABS: ALBUMIN 4.3 GM/DL (3.2-4.5); POTASSIUM 3.7 MMOL/L (3.6-5.0)
[2022-11-26 12:36] LABS: CALCIUM 10.9 MG/DL (8.5-10.1)
[2022-11-26 12:37] LABS: TOTAL PROTEIN 7.2 GM/DL (6.4-8.2)
[2022-11-26 12:39] LABS: BILIRUBIN,TOTAL 0.3 MG/DL (0.1-1.0)
[2022-11-26 12:41] LABS: CREATININE SERUM 0.85 MG/DL (0.60-1.30)
--- NOTE | 2022-11-26 12:58 | Diagnostic Imaging Report ---
PROCEDURE: US Scrotum. TECHNIQUE: Multiple real-time grayscale images were obtained over the scrotum in various projections bilaterally. INDICATION: Scrotal pain. FINDINGS: Right testicle is 3.9 cm and left testicle 3.8 cm. Color Doppler blood flow to both testicles is unremarkable. There is no hydrocele, hernia, or hematocele. No findings of torsion or orchitis. The epididymides are unremarkable. IMPRESSION: Unremarkable scrotal Doppler and ultrasound showed no epididymitis, orchitis, torsion, or findings of neoplasm. Dictated by: Dictated on workstation # [id number]
[2022-11-26] MEDS ORDERED: METH4TAB10 PO (13:16)
[2022-11-26] MEDS ORDERED: CYCL10TA25 PO (13:16)
[2022-11-26 13:20] VITALS: BP 123/77
== END 2022-11-26 13:20 | disposition home or self-care (01) ==
LOC: EDUNIT# 11:11 → ER 11:14
DX: M62.830 Muscle spasm of back (principal); R10.32 Left lower quadrant pain; R73.09 Other abnormal glucose; F17.210 Nicotine dependence, cigarettes, uncomplicated; F17.290 Nicotine dependence, other tobacco product, uncomplicated; Z28.310 Unvaccinated for COVID-19
CPT/HCPCS: 36415; 76870; 80053; 81000; 82947; 83735; 85025

== ENCOUNTER 2023-06-03 06:30 | Emergency (ER) | payer OTHER ==
[~2023-06-03] VITALS: Ht 73 cm; Wt 87.5 kg
[~2023-06-03 06:30] MED LIST changes: +METH4TAB10 PO
[2023-06-03] MEDS: ASPIRIN 81 MG CHEWABLE TABLET PO ONE (08:00)
[2023-06-03] MEDS: KETOROLAC INJ 30 MG/ML VIAL IVP STA (08:00)
[2023-06-03 08:13] LABS: BASOPHILS % (AUTO) 1 % (0-10); EOSINOPHILS # (AUTO) 0.2 10^3/uL (0.0-0.3); EOSINOPHILS % (AUTO) 5 % (0-10); HEMATOCRIT 44 % (40-54); LYMPHOCYTES # (AUTO) 1.8 10^3/uL (1.0-4.0); LYMPHOCYTES % (AUTO) 46 % (12-44); MEAN CORPUSCULAR HEMOGLOBIN 27 pg (25-34); MEAN CORPUSCULAR HGB CONC 32 g/dL (32-36); MEAN CORPUSCULAR VOLUME 84 fL (80-99); MEAN PLATELET VOLUME 9.2 fL (9.0-12.2); MONOCYTES # (AUTO) 0.6 10^3/uL (0.0-1.0); MONOCYTES % (AUTO) 15 % (0-12); NEUTROPHILS # (AUTO) 1.3 10^3/uL (1.8-7.8); NEUTROPHILS % (AUTO) 34 % (42-75); PLATELET COUNT 307 10^3/uL (130-400)
[2023-06-03 08:20] LABS: ALBUMIN 4.3 GM/DL (3.2-4.5); CHLORIDE 106 MMOL/L (98-107); POTASSIUM 3.7 MMOL/L (3.6-5.0); SODIUM 139 MMOL/L (135-145)
[2023-06-03 08:21] LABS: CALCIUM 9.1 MG/DL (8.5-10.1)
--- NOTE | 2023-06-03 08:21 | ED General ---
General Chief Complaint: Upper Extremity Stated Complaint: LEFT ARM NUMB Nursing Triage Note: PT AMBULATES TO ROOM #7 W/CC LEFT ARM NUMBNESS/TINGLING FROM LEFT UPPER ARM AND DISTAL. 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 PT DISPLAYS ABILITY TO FLEX AND EXTEND DISTAL JOINTS AND DIGITS. PT STATES, "IT FEELS DIFFERENT THAN WHEN YOU LAY ON YOUR ARM AND IT GOES NUMB." PT REPORTS HE HAS BEEN DEALING WITH RECENT SCIATICA PAIN ON LEFT SIDE. INITIAL NIH 0. Source of Information: Patient Exam Limitations: No Limitations History of Present Illness Date Seen by Provider: Jun 03, 2023 Time Seen by Provider: 07:40 Initial Comments Here with report of left arm numbness and tingling that has waxed and waned. Noted this on waking today. Patient admits that [place] is homeless [place]. Also complains of some low back pain. Denies active chest pain or neck pain. Denies nausea, vomiting or diarrhea. Denies fever or chills. Patient [place] the post office [place] is about 2 miles. He is carrying all of his gear. Left low back pain is chronic for the last couple of years. Denies current difficulty with going to the bathroom but states he occasionally has some constipation. Timing/Duration: 1-3 Hours Severity: Mild Associated Systoms: No Cough, No Fever/Chills, No Nausea/Vomiting, No Shortness of Air, No Weakness Allergies and Home Medications Allergies Coded Allergies: No Known Drug Allergies (Unverified , 05/31/15) Patient Home Medication List Home Medication List Reviewed: Yes Cyclobenzaprine HCl (Cyclobenzaprine HCl) 10 Mg Tablet, 10 MG PO Q8H PRN for SPASMS Prescribed by: PAULA GRAVES on 08/14/20 2312 Cyclobenzaprine HCl (Cyclobenzaprine HCl) 10 Mg Tablet, 10 MG PO Q8H PRN for SPASMS Prescribed by: JEAN EUGENE on 09/04/20 1800 Cyclobenzaprine HCl (Cyclobenzaprine HCl) 10 Mg Tablet, 10 MG PO Q8H PRN for SPASMS Prescribed by: PAULA GRAVES on 01/31/21 0229 Cyclobenzaprine HCl (Cyclobenzaprine HCl) 10 Mg Tablet, 10 MG PO TID Prescribed by: Blessing Srinivasan on 11/26/22 1316 Hydrocodone/Acetaminophen (Lorcet 5-325 mg Tablet) 1 Each Tablet, 1 EACH PO Q4- 6HR PRN for PAIN-MODERATE Prescribed by: MITRA MACHADO on 11/21/19 1339 Hydrocodone/Acetaminophen (Hydrocodone-Acetamin 5-325 mg) 5 Mg-325 Mg Tablet, 1 TAB PO Q4H PRN for PAIN-MODERATE (5-7) Prescribed by: BONNY ZAPIEN on 10/11/22 1702 Ibuprofen (Ibuprofen) 800 Mg Tablet, 800 MG PO Q8H PRN for PAIN-MILD Prescribed by: MITRA MACHADO on 09/03/19 1709 Methocarbamol (Robaxin-750) 750 Mg Tablet, 750 MG PO Q6H PRN for PAIN-MODERATE (5-7) Prescribed by: MITRA MACHADO on 11/21/19 1338 Methylprednisolone (Methylprednisolone Dose Pack) 4 Mg Tab.ds.pk, 4 MG PO UD Prescribed by: Blessing Srinivasan on 11/26/22 1316 Ondansetron (Ondansetron Odt) 4 Mg Tab.rapdis, 4 MG SL Q4H PRN for NAUSEA/VOMITING Prescribed by: PAULA GRAVES on 08/14/20 2312 Ondansetron (Ondansetron Odt) 4 Mg Tab.rapdis, 4 MG PO Q8H PRN for nausea Prescribed by: JINA ALVAREZ on 04/04/22 1015 Ondansetron (Ondansetron Odt) 4 Mg Tab.rapdis, 4 MG SL Q4H PRN for NAUSEA/VOMITING Prescribed by: BONNY ZAPIEN on 10/11/22 1701 Penicillin V Potassium (Penicillin V Potassium) 500 Mg Tablet, 500 MG PO QID Prescribed by: JINA ALVAREZ on 10/05/22 0856 Prednisone (Prednisone) 20 Mg Tab, 40 MG PO DAILY Prescribed by: MITRA MACHADO on 11/21/19 1338 Prednisone (Prednisone) 20 Mg Tab, 20 MG PO DAILY Prescribed by: PAULA GRAVES on 01/31/21 0229 Tamsulosin HCl (Flomax) 0.4 Mg Cap, 0.4 MG PO DAILY Prescribed by: BONNY ZAPIEN on 10/11/22 1701 Review of Systems Review of Systems Constitutional: see HPI; No chills, No fever EENTM: no symptoms reported Respiratory: No cough, No short of breath Cardiovascular: No chest pain, No edema Gastrointestinal: No nausea, No vomiting Genitourinary: no symptoms reported Musculoskeletal: back pain, muscle pain, muscle weakness Skin: No change in color, No lesions Psychiatric/Neurological: Denies Headache; Numbness Past Eisuhjq-Jedqed-Jwuojb Hx Patient Social History Tobacco Use?: Yes Tobacco type used: Cigarettes Use of E-Cig and/or Vaping dev: No Substance use?: No Alcohol Use?: No Immunizations Up To Date Tetanus Booster (TDap): Unknown Seasonal Allergies Seasonal Allergies: No Past Medical History Surgery/Hospitalization HX: DENIES Surgeries: Yes (LEFT HAND/FINGER STAPH INF SURGERY) Orthopedic Respiratory: No Cardiac: Yes (PERICARDITIS) Pericarditis Neurological: Yes Headaches /Migraines Genitourinary: No Gastrointestinal: No Musculoskeletal: Yes (chronic neck pain) Endocrine: No HEENT: No Cancer: No Psychosocial: Yes (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 oz. 99.547843sg; 164.00 BMI Method:Stated General Appearance: No Apparent Distress, WD/WN HEENT: PERRL/EOMI, Pharynx Normal Neck: Non Tender, Supple Respiratory: Lungs Clear, Normal Breath Sounds Cardiovascular: Regular Rate, Rhythm, No Murmur Gastrointestinal: Non Tender, Soft Back: Normal Inspection, No CVA Tenderness, No Vertebral Tenderness Extremity: Normal Range of Motion, Non Tender, No Calf Tenderness Neurologic/Psychiatric: Alert, Oriented x3 Skin: Normal Color, Warm/Dry Procedures/Interventions Date of ETT Placement: May 14, 2020 Time of ETT Placement: 1320 Progress/Results/Core Measures Suspected Sepsis SIRS Temperature: Pulse: 94 Respiratory Rate: 17 Laboratory Tests 11/21/23 08:00: White Blood Count 4.0L Blood Pressure 134 /93 Mean: 107 Laboratory Tests 06/03/23 08:00: Creatinine 0.87, INR Comment 1.0, Platelet Count 307, Total Bilirubin 0.5 Results/Orders Lab Results Laboratory Tests Test 06/03/23 08:00 Range/Units White Blood Count 4.0 L 4.3-11.0 10^3/uL Red Blood Count 5.19 4.30-5.52 10^6/uL Hemoglobin 14.0 13.3-17.7 g/dL Hematocrit 44 40-54 % Mean Corpuscular Volume 84 80-99 fL Mean Corpuscular Hemoglobin 27 25-34 pg Mean Corpuscular Hemoglobin Concent 32 32-36 g/dL Red Cell Distribution Width 13.4 10.0-14.5 % Platelet Count 307 130-400 10^3/uL Mean Platelet Volume 9.2 9.0-12.2 fL Immature Granulocyte % (Auto) 0 % Neutrophils (%) (Auto) 34 L 42-75 % Lymphocytes (%) (Auto) 46 H 12-44 % Monocytes (%) (Auto) 15 H 0-12 % Eosinophils (%) (Auto) 5 0-10 % Basophils (%) (Auto) 1 0-10 % Neutrophils # (Auto) 1.3 L 1.8-7.8 10^3/uL Lymphocytes # (Auto) 1.8 1.0-4.0 10^3/uL Monocytes # (Auto) 0.6 0.0-1.0 10^3/uL Eosinophils # (Auto) 0.2 0.0-0.3 10^3/uL Basophils # (Auto) 0.0 0.0-0.1 10^3/uL Immature Granulocyte # (Auto) 0.0 0.0-0.1 10^3/uL Prothrombin Time 13.6 12.2-14.7 SEC INR Comment 1.0 0.8-1.4 Activated Partial Thromboplast Time 34 24-35 SEC D-Dimer < 0.27 0.00-0.49 UG/ML Sodium Level 139 135-145 MMOL/L Potassium Level 3.7 3.6-5.0 MMOL/L Chloride Level 106 98-107 MMOL/L Carbon Dioxide Level 25 21-32 MMOL/L Anion Gap 8 5-14 MMOL/L Blood Urea Nitrogen 11 7-18 MG/DL Creatinine 0.87 0.60-1.30 MG/DL Estimat Glomerular Filtration Rate 114 BUN/Creatinine Ratio 13 Glucose Level 77 70-105 MG/DL Calcium Level 9.1 8.5-10.1 MG/DL Corrected Calcium 8.9 8.5-10.1 MG/DL Magnesium Level 2.4 1.6-2.4 MG/DL Total Bilirubin 0.5 0.1-1.0 MG/DL Aspartate Amino Transf (AST/SGOT) 32 5-34 U/L Alanine Aminotransferase (ALT/SGPT) 24 0-55 U/L Alkaline Phosphatase 62 40-136 U/L Myoglobin 79.2 10.0-92.0 NG/ML Troponin I < 0.028 <0.028 NG/ML Total Protein 7.4 6.4-8.2 GM/DL Albumin 4.3 3.2-4.5 GM/DL My Orders Orders - REGINA SABILLON MD Cbc And Automated Diff (06/03/23 07:44) Magnesium (06/03/23 07:44) Chest 1 View, Ap/Pa Only (06/03/23 07:44) Ekg Tracing (06/03/23 07:44) Comprehensive Metabolic Panel (06/03/23 07:44) Myoglobin Serum (06/03/23 07:44) Protime With Inr (06/03/23 07:44) Partial Thromboplastin Time (06/03/23 07:44) O2 (06/03/23 07:44) Monitor-Rhythm Ecg Trace Only (06/03/23 07:44) Lipid Panel (06/04/23 06:00) Ed Iv/Invasive Line Start (06/03/23 07:44) Fibrin Degradation Products (06/03/23 07:44) Troponin I Allan (06/03/23 07:44) Aspirin Chewable Tablet (Aspirin Chewabl (06/03/23 07:45) Ct Head/Cervical Spine Wo (06/03/23 07:44) Ketorolac Injection (Ketorolac Injection (06/03/23 07:45) Acetaminophen Tablet (Acetaminophen Ta (06/03/23 09:30) Medications Given in ED Current Medications Medications Dose Ordered Sig/Abner Route Start Time Stop Time Status Last Admin Dose Admin Aspirin 324 mg ONCE ONCE PO 06/03/23 07:45 06/03/23 07:46 DC 06/03/23 08:00 324 MG Vital Signs/I&O 06/03/23 06:43 Temp 36.3 Pulse 94 Resp 17 B/P (MAP) 134/93 (107) Pulse Ox 98 O2 Delivery Room Air Capillary Refill : Less Than 3 Seconds Blood Pressure Mean: 107 Progress Note : Progress Note Seen and evaluated. Patient has been seen multiple times for back and neck pain. Given that he woke up with left arm numbness a few hours ago, we will initiate workup for both cardiac equivalent and possible stroke equivalent. I do not believe either is high on the differential but we will rule these out. I have ordered cardiac workup due to the arm pain including CBC, CMP, coags, D- dimer and EKG. We will go ahead and get CT of the head and C-spine given the pain syndrome as well. ASA 324 mg p.o. as well as Toradol 30 mg IV ordered. Monitor patient. Differential diagnosis includes cardiac equivalent, stroke equivalent, musculoskeletal pain 0822: EKG nonconcerning other than low voltage QRS in lead II. CBC grossly normal although slightly low white count. Chemistries and coags are pending as well as radiological exams. Monitor patient. 0924: CMP reviewed and grossly normal with negative troponin. Coags are negative and D-dimer is negative. Chest x-ray shows no obvious acute abnormalities on my interpretation. CT head and C-spine reviewed by me and I do not see any intracranial hemorrhage and C- spine shows no obvious fractures and spinal alignment seems to be well- maintained with good disc height on my interpretation. 0933: Acetaminophen 1 g p.o. ordered. Given no other acute findings and the length of issues, I think this is more musculoskeletal in origin. Discharged home with return precautions. Patient verbalized understanding of instruction and agreement with plan. ECG Initial ECG Impression Date: Jun 03, 2023 Initial ECG Impression Time: 08:07 Initial ECG Rate: 75 Initial ECG Rhythm: Normal Sinus Comment Sinus rhythm with low voltage complexes in lead II. Right axis deviation. No evidence of ST elevation CT. Interpreted by me. Diagnostic Imaging Diagonstic Imaging: CT Plain Films/CT/US/NM/MRI: c-spine, head Comments [facility]. [place], [place] NAME: WILDER MONGE [facility] REC#: [id number] PT STATUS: REG ER : 1985 PHYSICIAN: REGINA SABILLON MD ADMIT DATE: 06/03/23/ER Draft Date of Exam:06/03/23 CT HEAD/CERVICAL SPINE WO PROCEDURE: CT head and CT cervical spine without contrast. TECHNIQUE: Multiple contiguous axial images were obtained through the brain and cervical spine without the use of intravenous contrast. Sagittal and coronal reformations through the cervical spine were then performed. Auto Exposure Controls were utilized during the CT exam to meet ALARA standards for radiation dose reduction. INDICATION: Trauma. Numbness and tingling in left upper extremity. COMPARISON: None. FINDINGS: CT HEAD: No intracranial hemorrhage, mass effect, hydrocephalus or extra-axial fluid collections. No CT evidence of a territorial infarction. Osseous structures are intact. Mild mucosal thickening in the ethmoid and maxillary sinuses. The mastoids are clear. CT cervical spine: Normal alignment. Vertebral body heights are preserved. No fractures. Visualized paravertebral soft tissues are unremarkable. IMPRESSION: No acute intracranial or cervical spine CT findings. Dictated on workstation # [id number] Dict: 06/03/23902 Trans: 06/03/23907 [id number] Interpreted by: RITU OROPEZA MD Electronically signed by: Reviewed: Reviewed by Me Diagonstic Imaging: Xray Plain Films/CT/US/NM/MRI: chest Comments NAME: WILDER MONGE [facility] REC#: [id number] PT STATUS: REG ER : 1985 PHYSICIAN: REGINA SABILLON MD ADMIT DATE: 06/03/23/ER Draft Date of Exam:06/03/23 CHEST 1 VIEW, AP/PA ONLY INDICATION: Chest pain Frontal chest obtained at 0831 a.m. Heart and mediastinal silhouette are normal in appearance. The lungs are clear. There is no pneumothorax or pleural fluid. IMPRESSION: No acute process in the chest. Dictated on workstation # [id number] Dict: 06/03/23924 Trans: 06/03/23927 [facility] [id number] Interpreted by: MELQUIADES ELLIOTT MD Electronically signed by: Departure Impression Primary Impression: Left arm pain Additional Impression: Left low back pain Qualified Codes: M54.50 - Low back pain, unspecified; G89.29 - Other chronic pain Disposition: 01 HOME, SELF-CARE Condition: Stable Departure-Patient Inst. Decision time for Depature: 09:44 Referrals: [facility] [place] (PCP/Family) Primary Care Physician Patient Instructions: Low Back Pain ED, Acute Pain, Adult (DC) Add. Discharge Instructions: All discharge instructions reviewed with patient and/or family. Voiced understanding. Take medications as directed. You may take Tylenol/acetaminophen 1000 mg every 6-8 hours as needed for pain as well. Follow-up with your doctor for recheck and further evaluation. Return for worse pain, fever, vomiting, weakness, breathing problems or other concerns as needed. Scripts Naproxen (Naproxen) 500 Mg Tablet 500 MG PO Q12H PRN for PAIN, #30 TAB Prov: REGINA SABILLON MD 06/03/23 REGINA SABILLON MD Jun 03, 2023 08:21
[2023-06-03 08:22] LABS: GLUCOSE 77 MG/DL (70-105)
[2023-06-03 08:23] LABS: TOTAL PROTEIN 7.4 GM/DL (6.4-8.2)
[2023-06-03 08:24] LABS: BILIRUBIN,TOTAL 0.5 MG/DL (0.1-1.0); CARBON DIOXIDE 25 MMOL/L (21-32); PROTHROMBIN TIME PATIENT 13.6 SEC (12.2-14.7)
[2023-06-03 08:25] LABS: PARTIAL THROMBOPLASTIN TIME 34 SEC (24-35)
[2023-06-03 08:26] LABS: ALKALINE PHOSPHATASE 62 U/L (40-136); CREATININE SERUM 0.87 MG/DL (0.60-1.30); GFR ESTIMATED 114
[2023-06-03 08:27] LABS: BUN/CREATININE RATIO 13
[2023-06-03 08:29] LABS: ALANINE AMINOTRANSFERASE 24 U/L (0-55); FIBRIN DEGRADATION PRODUCTS < 0.27 UG/ML (0.00-0.49); MAGNESIUM 2.4 MG/DL (1.6-2.4)
--- NOTE | 2023-06-03 09:08 | Diagnostic Imaging Report ---
PROCEDURE: CT head and CT cervical spine without contrast. TECHNIQUE: Multiple contiguous axial images were obtained through the brain and cervical spine without the use of intravenous contrast. Sagittal and coronal reformations through the cervical spine were then performed. Auto Exposure Controls were utilized during the CT exam to meet ALARA standards for radiation dose reduction. INDICATION: Trauma. Numbness and tingling in left upper extremity. COMPARISON: None. FINDINGS: CT HEAD: No intracranial hemorrhage, mass effect, hydrocephalus or extra-axial fluid collections. No CT evidence of a territorial infarction. Osseous structures are intact. Mild mucosal thickening in the ethmoid and maxillary sinuses. The mastoids are clear. CT cervical spine: Normal alignment. Vertebral body heights are preserved. No fractures. Visualized paravertebral soft tissues are unremarkable. IMPRESSION: No acute intracranial or cervical spine CT findings. Dictated by: Dictated on workstation # [id number]
--- NOTE | 2023-06-03 09:28 | Diagnostic Imaging Report ---
INDICATION: Chest pain Frontal chest obtained at 0831 a.m. Heart and mediastinal silhouette are normal in appearance. The lungs are clear. There is no pneumothorax or pleural fluid. IMPRESSION: No acute process in the chest. Dictated by: Dictated on workstation # [id number]
[2023-06-03] MEDS ORDERED: NAPR-915 PO (09:46)
[2023-06-03] MEDS: ACETAMINOPHEN 500 MG TABLET PO ONE (09:56)
[2023-06-03 10:00] VITALS: BP 130/91
== END 2023-06-03 10:00 | disposition home or self-care (01) ==
LOC: EDUNIT# 06:30 → ER 06:33
DX: M54.50 Low back pain, unspecified (principal); G89.29 Other chronic pain; M79.602 Pain in left arm; F17.210 Nicotine dependence, cigarettes, uncomplicated
CPT/HCPCS: 36415; 70450; 71045; 72125; 80053; 83735; 83874; 84484; 85025; 85379; 85610; 85730; 93005; 93041